=== PATIENT | male | born 1985 | race Caucasian/White ===

== ENCOUNTER 2017-04-26 19:45 | Inpatient (IN) | payer OTHER ==
--- NOTE | 2017-04-26 21:14 | HP ---
CIWA Score - CIWA Score Nausea/Vomitin-Mild Nausea/No Vomiting Muscle Tremors: 4-Moderate,w/Arms Extend Anxiety: 4-Mod. Anxious/Guarded Agitation: 4-Moderately Restless Paroxysmal Sweats: 1-Minimal Palms Moist Orientation: 1-Uncertain about Date Tacttile Disturbances: 0-None Auditory Disturbances: 0-None Visual Disturbances: 0-None Headache: 1-Very Mild CIWA-Ar Total Score: 16 Admission ROS BHS - HPI Chief Complaint: WITHDRAWAL SX ALCOHOL INTOXICATION TREATED IN ER RECEIVED LIBRIUM Allergies/Adverse Reactions: Allergies Allergy/AdvReac Type Severity Reaction Status Date / Time Fish Containing Products Allergy Verified 04/26/17 21:14 History of Present Illness: 31 YEARS OLD MALE WITH LONG HISTORY OF ALCOHOL NICOTINE DEPENDENCE LEFT LEG 2016 TRAUMA MULTIPLE SURGERY REPAIRED AND ANXIETY IS ADMITTED TO DETOX Exam Limitations: No Limitations - Ebola screening Have you traveled outside of the country in the last 21 days: No Have you had contact with anyone from an Ebola affected area: No Have you been sick,other than usual withdrawal symptoms: No Do you have a fever: No - Review of Systems Constitutional: Loss of Appetite, Changes in sleep, Unintentional Wgt. Loss, Unexplained wgt Loss EENT: reports: No Symptoms Reported Respiratory: reports: No Symptoms reported Cardiac: reports: No Symptoms Reported GI: reports: Nausea, Poor Appetite, Poor Fluid Intake, Indigestion, Abdominal cramping : reports: No Symptoms Reported Musculoskeletal: reports: Joint Pain (LEFT LEG), Muscle Pain Integumentary: reports: No Symptoms Reported Neuro: reports: Seizure (2014 LAST EPISODE), Tremors Endocrine: reports: No Symptoms Reported Hematology: reports: No Symptoms Reported Psychiatric: reports: Judgement Intact, Anxious Other Systems: Reviewed and Negative Patient History - Patient Medical History Hx Anemia: No Hx Asthma: No Hx Chronic Obstructive Pulmonary Disease (COPD): No Hx Cancer: No Hx Cardiac Disorders: No Hx Congestive Heart Failure: No Hx Hypertension: No Hx Hypercholesterolemia: No Hx Pacemaker: No HX Cerebrovascular Accident: No Hx Seizures: No Hx Dementia: No Hx Diabetes: No Hx Gastrointestinal Disorders: Yes Hx Liver Disease: No Hx Genitourinary Disorders: No Hx Sexually Transmitted Disorders: No Hx Renal Disease (ESRD): No Hx Thyroid Disease: No Hx Human Immunodeficiency Virus (HIV): No Hx Hepatitis C: No Hx Depression: Yes Hx Suicide Attempt: No Hx Bipolar Disorder: No Hx Schizophrenia: No - Patient Surgical History Past Surgical History: Yes Hx Neurologic Surgery: No Hx Cataract Extraction: No Hx Cardiac Surgery: No Hx Lung Surgery: No Hx Breast Surgery: No Hx Breast Biopsy: No Hx Abdominal Surgery: No Hx Appendectomy: No Hx Cholecystectomy: No Hx Genitourinary Surgery: No Hx Orthopedic Surgery: Yes (LEFT ANKLE 2016) Anesthesia Reaction: No - PPD History Previous Implant?: Yes Documented Results: Negative w/o proof Implanted On Prior R Admission?: No PPD to be Administered?: Yes - Smoking Cessation Smoking history: Current every day smoker Have you smoked in the past 12 months: Yes Aproximately how many cigarettes per day: 20 Cigars Per Day: 0 Hx Chewing Tobacco Use: No Initiated information on smoking cessation: Yes 'Breaking Loose' booklet given: 04/26/17 - Substance & Tx. History Hx Alcohol Use: Yes Hx Substance Use: No Substance Use Type: Alcohol Hx Substance Use Treatment: Yes (01/2017 [facility]) - Substances Abused Alcohol Route: Oral Frequency: Daily Amount used: 3 PINTS VOLKA Age of first use: 21 Date of Last Use: 04/26/17 Family Disease History - Family Disease History Family History: Unremarkable Admission Physical Exam S - Physical General Appearance: Yes: Appropriately Dressed, Moderate Distress, Alcohol on Breath, Thin, Tremorous, Irritable, Sweating, Anxious HEENTM: Yes: Hearing grossly Normal, Normal ENT Inspection, Normocephalic, Normal Voice Respiratory: Yes: Chest Non-Tender, Lungs Clear, Normal Breath Sounds, No Respiratory Distress, No Accessory Muscle Use Neck: Yes: Supple, Trachea in good position Breast: Yes: Breasts Symetrical Cardiology: Yes: Regular Rhythm, S1, S2, Tachycardia Abdominal: Yes: Normal Bowel Sounds, Non Tender, Soft Genitourinary: Yes: Within Normal Limits Back: Yes: Normal Inspection Musculoskeletal: Yes: Gait Steady, Back pain, Muscle Pain (LEFT ANKLE) Extremities: Yes: Non-Tender, Tremors Neurological: Yes: Alert, Normal Response, Depressed Affect Integumentary: Yes: Warm Lymphatic: Yes: Within Normal Limits - Diagnostic (1) Alcohol dependence with uncomplicated withdrawal Current Visit: Yes Status: Acute (2) Nicotine dependence Current Visit: Yes Status: Acute Qualifiers: Nicotine product type: cigarettes Substance use status: in withdrawal Qualified Code(s): F17.213 - Nicotine dependence, cigarettes, with withdrawal (3) Weight loss Current Visit: Yes Status: Acute (4) GERD (gastroesophageal reflux disease) Current Visit: Yes Status: Chronic Qualifiers: Esophagitis presence: without esophagitis Qualified Code(s): K21.9 - Gastro-esophageal reflux disease without esophagitis (5) Anxiety Current Visit: Yes Status: Suspected (6) Use of cane as ambulatory aid Current Visit: Yes Status: Acute (7) Left leg weakness Current Visit: Yes Status: Chronic Cleared for Admission [facility] - Detox or Rehab [facility] Level of Care: Medically Managed Detox Regimen/Protocol: Librium [facility] Breath Alcohol Content Breath Alcohol Content: 0.257 Vital Signs - Vital Signs Vital Signs Refused: No Temperature: 96.9 F Temperature Source: Oral Pulse Rate: 108 Respiratory Rate: 18 Blood Pressure: 145/90 BP Location: Left Arm Blood Pressure Position: Sitting - Height Height: 5 ft 8 in - Weight Weight: 170 lb Weight Measurement Method: Standing Scale Body Mass Index (BMI): 25.8 - Bowel Function Bowel Movement: Yes Urine Drug Screen - Control Is Test Valid: Yes - Results Drug Screen Negative: No Urine Drug Screen Results: JULIANO-Cocaine, BZO-Benzodiazepines
[2017-04-26 21:19] VITALS: BMI 25.8
[2017-04-26] MEDS ORDERED: ACETAMINOPHEN 325 MG TABLET (FP) PO PRN (21:23)
[2017-04-26] MEDS ORDERED: MAGNESIUM CITRATE 300 ML BOTTLE PO PRN (21:23)
[2017-04-26] MEDS ORDERED: hydrOXYzine PAMOATE 50 MG CAPSULE (FP) PO PRN (21:23)
[2017-04-26] MEDS ORDERED: P-EPHED 60MG/TRIPROLIDI 2.5MG TABLET PO PRN (21:23)
[2017-04-26] MEDS ORDERED: NICOTINE POLACRILEX 4 MG GUM BUC PRN (21:23)
[2017-04-26] MEDS ORDERED: MAGNESIUM HYDROX 2400MG/30ML ORAL SUSPENSION 30 ML CUP PO PRN (21:23)
[2017-04-26] MEDS ORDERED: LOPERAMIDE HCL 2 MG CAPSULE PO PRN (21:23)
[2017-04-26] MEDS ORDERED: guaiFENesin/D-METHORPHAN HB 10 ML UNIT-DOSE CUPS PO PRN (21:23)
[2017-04-26] MEDS ORDERED: MAG HYDROX/AL HYDROX/SIMETH 30 ML UNIT-DOSE CUP PO PRN (21:23)
[2017-04-26] MEDS ORDERED: MENTHOL/PHENOL 1 EACH UD MM PRN (21:23)
[2017-04-26] MEDS ORDERED: chlordiazePOXIDE HCL 25 MG CAPSULE PO ONE (21:23)
[2017-04-26] MEDS ORDERED: chlordiazePOXIDE HCL 25 MG CAPSULE PO PRN (21:23)
[2017-04-27] MEDS ORDERED: chlordiazePOXIDE HCL 25 MG CAPSULE PO ONE (00:30)
[2017-04-27] MEDS: diphenhydrAMINE HCL 50 MG CAPSULE PO PRN ×2 (00:58→22:32)
[2017-04-27] MEDS: chlordiazePOXIDE HCL 25 MG CAPSULE PO SCH ×5 (01:05→22:08)
[2017-04-27] MEDS: RANITIDINE HCL 150 MG TABLET (FP) PO SCH ×3 (01:06→22:08)
[2017-04-27] MEDS: THIAMINE HCL 100 MG TABLET (FP) PO SCH ×2 (01:06→22:08)
[2017-04-27 01:29] LABS: URINE APPEARANCE CLEAR; URINE BILIRUBIN NEGATIVE (NEGATIVE); URINE BLOOD NEGATIVE (NEGATIVE); URINE COLOR COLORLESS; URINE GLUCOSE (UA) NEGATIVE (NEGATIVE); URINE KETONE NEGATIVE (NEGATIVE); URINE LEUK ESTERASE NEGATIVE (NEGATIVE); URINE NITRITE NEGATIVE (NEGATIVE); URINE PROTEIN NEGATIVE (NEGATIVE); URINE UROBILINOGEN NEGATIVE mg/dL (0.2-1.0)
--- NOTE | 2017-04-27 08:42 | CONSULT ---
[facility] Psychiatric Consult - Data Date of interview: 04/27/17 Admission source: [facility] Identifying data: This ios 31 years old male with no psychiatric hospittalization history, ambu;ating with cane, intoxicated with: Alcohol and Nicotine Substance Abuse History: - Smoking Cessation. Smoking history: Current every day smoker. Have you smoked in the past 12 months: Yes. Aproximately how many cigarettes per day: 20. Cigars Per Day: 0. Hx Chewing Tobacco Use: No. Initiated information on smoking cessation: Yes. 'Breaking Loose' booklet given : 04/26/17. - Substance & Tx. History. Hx Alcohol Use: Yes. Hx Substance Use : No. Substance Use Type: Alcohol. Hx Substance Use Treatment: Yes (01/2017 [facility]). - Substances Abused. Alcohol. Route: Oral. Frequency: Daily. Amount used: 3 PINTS VOLKA. Age of first use: 21. Date of Last Use: 04/26/17 Medical History: Left Leg weackness, Left ankle s/p injuty., Weight loss history Psychiatric History: Patient reports history of anxiety, reports no medications taking prior to admission Physical/Sexual Abuse/Trauma History: Denies Additional Comment: Vistaril 50mg po prn q4 for agitation and anxiety Mental Status Exam - Mental Status Exam Alert and Oriented to: Person Cognitive Function: Fair Patient Appearance: Well Groomed Mood: Anxious Affect: Mood Congruent Patient Behavior: Cooperative Speech Pattern: Appropriate Voice Loudness: Normal Thought Process: Goal Oriented Thought Disorder: Being Controlled Hallucinations: Denies Suicidal Ideation: Denies Homicidal Ideation: Denies Insight/Judgement: Fair Sleep: Difficulty falling asleep Appetite: Weight loss Muscle strength/Tone: Mild Hypertonicity Gait/Station: Ataxic Additional Comments: Vistaril 50mg po prn q4 for agitation and anxiety Psychiatric Findings - Problem List (Hiko 1, 2,3) (1) Alcohol dependence with uncomplicated withdrawal Current Visit: Yes Status: Acute (2) Nicotine dependence Current Visit: Yes Status: Acute Qualifiers: Nicotine product type: cigarettes Substance use status: in withdrawal Qualified Code(s): F17.213 - Nicotine dependence, cigarettes, with withdrawal (3) Drug-induced mood disorder Current Visit: Yes Status: Acute - Initial Treatment Plan Initial Treatment Plan: Vistaril 50mg po prn q4 for agitation and anxiety
[2017-04-27 09:50] LABS: MCH 32.3 pg (25.7-33.7); MCHC 34.1 g/dl (32.0-35.9); MEAN CELL VOLUME 94.7 fl (80-96); MEAN PLT VOLUME 8.1 fl (7.5-11.1); PLATELET COUNT 233 K/MM3 (134-434); RDW 12.9 % (11.9-15.9); WHITE BLOOD COUNT 7.2 K/mm3 (4.0-10.0)
[2017-04-27] MEDS: PRENATAL VITAMINS W/ FOLIC ACID TABLET (FP) PO SCH (10:05)
[2017-04-27] MEDS: NICOTINE 21 MG/24 HOURS TOPICAL PATCH TD SCH (10:06)
[2017-04-27 10:17] LABS: ALBUMIN 3.5 g/dl (3.4-5.0); ALK PHOS 76 U/L (45-117); ANION GAP 7 (8-16); BILIRUBIN,TOTAL 0.4 mg/dL (0.2-1.0); CALCIUM 8.2 mg/dL (8.5-10.1); CO2 30 mmol/L (21-32); CREATININE 0.8 mg/dL (0.7-1.3); GLUCOSE,RANDOM 81 mg/dL (74-106); SGOT/AST 30 U/L (15-37); SGPT/ALT 40 U/L (12-78); TOT PROT 6.4 g/dl (6.4-8.2)
--- NOTE | 2017-04-27 10:17 | PN ---
[facility] CIWA - CIWA Score Nausea/Vomitin-No Nausea/No Vomiting Muscle Tremors: 4-Moderate,w/Arms Extend Anxiety: 4-Mod. Anxious/Guarded Agitation: 4-Moderately Restless Paroxysmal Sweats: 1-Minimal Palms Moist Orientation: 0-Oriented Tacttile Disturbances: 3-Moderate Itch/Numb/Burn Auditory Disturbances: 0-None Visual Disturbances: 0-None Headache: 0-None Present CIWA-Ar Total Score: 16 BHS Progress Note (SOAP) Subjective: ANIETY, SWEATS, SLIGHT TREMORS. Objective: 04/27/17 10:16 Vital Signs Temperature 97.7 F 04/27/17 09:51 Pulse Rate 73 04/27/17 09:51 Respiratory Rate 20 04/27/17 09:51 Blood Pressure 128/84 04/27/17 09:51 O2 Sat by Pulse Oximetry (%) Laboratory Last Values WBC 7.2 K/mm3 (4.0-10.0) 04/27/17 07:50 RBC 4.31 M/mm3 (4.00-5.60) 04/27/17 07:50 Hgb 13.9 GM/dL (11.7-16.9) 04/27/17 07:50 Hct 40.8 % (35.4-49) 04/27/17 07:50 MCV 94.7 fl (80-96) 04/27/17 07:50 MCH 32.3 pg (25.7-33.7) 04/27/17 07:50 MCHC 34.1 g/dl (32.0-35.9) 04/27/17 07:50 RDW 12.9 % (11.9-15.9) 04/27/17 07:50 Plt Count 233 K/MM3 (134-434) 04/27/17 07:50 MPV 8.1 fl (7.5-11.1) 04/27/17 07:50 Urine Color Colorless 04/26/17 23:37 Urine Appearance Clear 04/26/17 23:37 Urine pH 6.0 (5.0-8.0) 04/26/17 23:37 Ur Specific [place] <= 1.005 (1.005-1.025) 04/26/17 23:37 Urine Protein Negative (NEGATIVE) 04/26/17 23:37 Urine Glucose (UA) Negative (NEGATIVE) 04/26/17 23:37 Urine Ketones Negative (NEGATIVE) 04/26/17 23:37 Urine Blood Negative (NEGATIVE) 04/26/17 23:37 Urine Nitrite Negative (NEGATIVE) 04/26/17 23:37 Urine Bilirubin Negative (NEGATIVE) 04/26/17 23:37 Urine Urobilinogen Negative mg/dL (0.2-1.0) 04/26/17 23:37 OTHER LABS PENDING Assessment: 04/27/17 10:16 WITHDRAWAL SX Plan: CONTINUE DETOX
--- NOTE | 2017-04-27 13:23 | EKG ---
Test Reason : Blood Pressure : / mmHG Vent. Rate : 082 BPM Atrial Rate : 082 BPM P-R Int : 160 ms QRS Dur : 086 ms QT Int : 356 ms P-R-T Axes : 081 071 053 degrees QTc Int : 415 ms NORMAL SINUS RHYTHM NORMAL ECG NO PREVIOUS ECGS AVAILABLE Confirmed by SHIN MCMAHAN, DELORIS (2013) on 04/27/2017 1:23:33 PM Referred By: Jesus Alberto Coello Confirmed By:DELORIS MELISSA MD
[2017-04-27] MEDS ORDERED: ONDANSETRON *ODT* 4 MG TABLET SL ONE (17:35)
[2017-04-28] MEDS: diphenhydrAMINE HCL 50 MG CAPSULE PO PRN ×2 (00:23→22:02)
[2017-04-28] MEDS: chlordiazePOXIDE HCL 25 MG CAPSULE PO SCH ×3 (05:29→17:15)
[2017-04-28] MEDS: PRENATAL VITAMINS W/ FOLIC ACID TABLET (FP) PO SCH (10:19)
[2017-04-28] MEDS: RANITIDINE HCL 150 MG TABLET (FP) PO SCH ×2 (10:19→22:02)
[2017-04-28] MEDS: NICOTINE 21 MG/24 HOURS TOPICAL PATCH TD SCH (10:20)
--- NOTE | 2017-04-28 10:52 | PN ---
[facility] CIWA - CIWA Score Nausea/Vomitin-No Nausea/No Vomiting Muscle Tremors: 4-Moderate,w/Arms Extend Anxiety: 4-Mod. Anxious/Guarded Agitation: 3 Paroxysmal Sweats: 3 Orientation: 0-Oriented Tacttile Disturbances: 0-None Auditory Disturbances: 0-None Visual Disturbances: 0-None Headache: 0-None Present CIWA-Ar Total Score: 14 S Progress Note (SOAP) Subjective: Anxiety,tremors,sweating,interrupted sleep,restless Objective: 04/28/17 10:51 Vital Signs - 8 hr 04/28/17 04/28/17 04/28/17 03:30 06:17 09:44 Temperature 97 F L 97.1 F L Pulse Rate 57 L 62 Respiratory 18 20 20 Rate Blood Pressure 139/93 136/89 Laboratory Last Values WBC 7.2 K/mm3 (4.0-10.0) 04/27/17 07:50 RBC 4.31 M/mm3 (4.00-5.60) 04/27/17 07:50 Hgb 13.9 GM/dL (11.7-16.9) 04/27/17 07:50 Hct 40.8 % (35.4-49) 04/27/17 07:50 MCV 94.7 fl (80-96) 04/27/17 07:50 MCH 32.3 pg (25.7-33.7) 04/27/17 07:50 MCHC 34.1 g/dl (32.0-35.9) 04/27/17 07:50 RDW 12.9 % (11.9-15.9) 04/27/17 07:50 Plt Count 233 K/MM3 (134-434) 04/27/17 07:50 MPV 8.1 fl (7.5-11.1) 04/27/17 07:50 Sodium 145 mmol/L (136-145) 04/27/17 07:50 Potassium 3.5 mmol/L (3.5-5.1) 04/27/17 07:50 Chloride 108 mmol/L (98-107) H 04/27/17 07:50 Carbon Dioxide 30 mmol/L (21-32) 04/27/17 07:50 Anion Gap 7 (8-16) L 04/27/17 07:50 BUN 6 mg/dL (7-18) L 04/27/17 07:50 Creatinine 0.8 mg/dL (0.7-1.3) 04/27/17 07:50 Creat Clearance w eGFR > 60 (>60) 04/27/17 07:50 Random Glucose 81 mg/dL (74-106) 04/27/17 07:50 Calcium 8.2 mg/dL (8.5-10.1) L 04/27/17 07:50 Total Bilirubin 0.4 mg/dL (0.2-1.0) 04/27/17 07:50 AST 30 U/L (15-37) 04/27/17 07:50 ALT 40 U/L (12-78) 04/27/17 07:50 Alkaline Phosphatase 76 U/L (45-117) 04/27/17 07:50 Total Protein 6.4 g/dl (6.4-8.2) 04/27/17 07:50 Albumin 3.5 g/dl (3.4-5.0) 04/27/17 07:50 Urine Color Colorless 04/26/17 23:37 Urine Appearance Clear 04/26/17 23:37 Urine pH 6.0 (5.0-8.0) 04/26/17 23:37 Ur Specific [place] <= 1.005 (1.005-1.025) 04/26/17 23:37 Urine Protein Negative (NEGATIVE) 04/26/17 23:37 Urine Glucose (UA) Negative (NEGATIVE) 04/26/17 23:37 Urine Ketones Negative (NEGATIVE) 04/26/17 23:37 Urine Blood Negative (NEGATIVE) 04/26/17 23:37 Urine Nitrite Negative (NEGATIVE) 04/26/17 23:37 Urine Bilirubin Negative (NEGATIVE) 04/26/17 23:37 Urine Urobilinogen Negative mg/dL (0.2-1.0) 04/26/17 23:37 RPR Titer Nonreactive (NONREACTIVE) 04/27/17 07:50 labs noted Assessment: 04/28/17 10:52 Withdrawal sx. Plan: Continue detox
[2017-04-28] MEDS: THIAMINE HCL 100 MG TABLET (FP) PO SCH (22:02)
[2017-04-28] MEDS: chlordiazePOXIDE 5 MG CAPSULE PO SCH (22:02)
[2017-04-29] MEDS: diphenhydrAMINE HCL 50 MG CAPSULE PO PRN ×2 (01:06→22:03)
[2017-04-29] MEDS: chlordiazePOXIDE 5 MG CAPSULE PO SCH ×3 (05:52→17:26)
[2017-04-29] MEDS: PRENATAL VITAMINS W/ FOLIC ACID TABLET (FP) PO SCH (10:07)
[2017-04-29] MEDS: RANITIDINE HCL 150 MG TABLET (FP) PO SCH ×2 (10:07→22:03)
[2017-04-29] MEDS: NICOTINE 21 MG/24 HOURS TOPICAL PATCH TD SCH (10:07)
--- NOTE | 2017-04-29 13:38 | PN ---
BHS Progress Note (SOAP) Subjective: Interrupted sleep, Anxious, Sweating. Objective: PT. A & O X 3, OBSERVED AMBULATING ON UNIT WITH ASSISTANCE OF A CANE. NO ACUTE DISTRESS. PT. DENIES CHEST PAIN. 04/29/17 13:36 Vital Signs Temperature 96.5 F L 04/29/17 10:20 Pulse Rate 61 04/29/17 10:20 Respiratory Rate 18 04/29/17 10:20 Blood Pressure 140/90 04/29/17 10:20 O2 Sat by Pulse Oximetry (%) Laboratory Tests 04/26/17 04/27/17 04/27/17 23:37 07:50 07:50 WBC 7.2 RBC 4.31 Hgb 13.9 Hct 40.8 MCV 94.7 MCH 32.3 MCHC 34.1 RDW 12.9 Plt Count 233 MPV 8.1 Sodium 145 Potassium 3.5 Chloride 108 H Carbon Dioxide 30 Anion Gap 7 L BUN 6 L Creatinine 0.8 Creat Clearance w eGFR > 60 Random Glucose 81 Calcium 8.2 L Total Bilirubin 0.4 AST 30 ALT 40 Alkaline Phosphatase 76 Total Protein 6.4 Albumin 3.5 Urine Color Colorless Urine Appearance Clear Urine pH 6.0 Ur Specific [place] <= 1.005 Urine Protein Negative Urine Glucose (UA) Negative Urine Ketones Negative Urine Blood Negative Urine Nitrite Negative Urine Bilirubin Negative Urine Urobilinogen Negative RPR Titer 04/27/17 07:50 WBC RBC Hgb Hct MCV MCH MCHC RDW Plt Count MPV Sodium Potassium Chloride Carbon Dioxide Anion Gap BUN Creatinine Creat Clearance w eGFR Random Glucose Calcium Total Bilirubin AST ALT Alkaline Phosphatase Total Protein Albumin Urine Color Urine Appearance Urine pH Ur Specific [place] Urine Protein Urine Glucose (UA) Urine Ketones Urine Blood Urine Nitrite Urine Bilirubin Urine Urobilinogen RPR Titer Nonreactive LABS NOTED. Assessment: 04/29/17 13:37 WITHDRAWAL SYMPTOMS. Plan: CONTINUE DETOX. INCREASE DAILY PO FLUID INTAKE.
[2017-04-29 21:59] VITALS: BP 139/89; PULSE 72; TEMP 97.3
[2017-04-29] MEDS: THIAMINE HCL 100 MG TABLET (FP) PO SCH (22:03)
[2017-04-29] MEDS: chlordiazePOXIDE HCL 10 MG CAPSULE PO SCH (22:03)
[2017-04-30] MEDS: chlordiazePOXIDE HCL 10 MG CAPSULE PO SCH (05:44)
--- NOTE | 2017-04-30 13:16 | DS ---
[facility] Detox Discharge Summary Admission Date: 04/26/17 Discharge Date: 04/30/17 - History Present History: Alcohol Dependence Pertinent Past History: GERD - Physical Exam Results Vital Signs: Vital Signs Temperature 97.3 F L 04/29/17 21:58 Pulse Rate 72 04/29/17 21:58 Respiratory Rate 18 04/30/17 03:30 Blood Pressure 139/89 04/29/17 21:58 O2 Sat by Pulse Oximetry (%) Pertinent Admission Physical Exam Findings: Withdrawal symptoms Laboratory Tests 04/26/17 04/27/17 04/27/17 23:37 07:50 07:50 WBC 7.2 RBC 4.31 Hgb 13.9 Hct 40.8 MCV 94.7 MCH 32.3 MCHC 34.1 RDW 12.9 Plt Count 233 MPV 8.1 Sodium 145 Potassium 3.5 Chloride 108 H Carbon Dioxide 30 Anion Gap 7 L BUN 6 L Creatinine 0.8 Creat Clearance w eGFR > 60 Random Glucose 81 Calcium 8.2 L Total Bilirubin 0.4 AST 30 ALT 40 Alkaline Phosphatase 76 Total Protein 6.4 Albumin 3.5 Urine Color Colorless Urine Appearance Clear Urine pH 6.0 Ur Specific [place] <= 1.005 Urine Protein Negative Urine Glucose (UA) Negative Urine Ketones Negative Urine Blood Negative Urine Nitrite Negative Urine Bilirubin Negative Urine Urobilinogen Negative RPR Titer 04/27/17 07:50 WBC RBC Hgb Hct MCV MCH MCHC RDW Plt Count MPV Sodium Potassium Chloride Carbon Dioxide Anion Gap BUN Creatinine Creat Clearance w eGFR Random Glucose Calcium Total Bilirubin AST ALT Alkaline Phosphatase Total Protein Albumin Urine Color Urine Appearance Urine pH Ur Specific [place] Urine Protein Urine Glucose (UA) Urine Ketones Urine Blood Urine Nitrite Urine Bilirubin Urine Urobilinogen RPR Titer Nonreactive Labs noted - Treatment Hospital Course: Detox Protocol Followed, Detoxed Safely, Responded well, Discharged Condition Good - Medication Discharge Medications: Ambulatory Orders NK [No Known Home Medication] 04/27/17 - Diagnosis (1) Alcohol dependence with uncomplicated withdrawal Status: Acute (2) Nicotine dependence Status: Chronic Qualifiers: Nicotine product type: cigarettes Substance use status: in withdrawal Qualified Code(s): F17.213 - Nicotine dependence, cigarettes, with withdrawal (3) GERD (gastroesophageal reflux disease) Status: Chronic Qualifiers: Esophagitis presence: without esophagitis Qualified Code(s): K21.9 - Gastro-esophageal reflux disease without esophagitis (4) Depression Status: Chronic - AMA Did Patient Leave Against Medical Advice: No
== END 2017-04-30 06:40 | disposition home or self-care (01) | DRG 775 ==
LOC: YASAS 19:45 → Y3N 22:44
PROVIDERS: ADMIT Internal Medicine; ATTEND Internal Medicine
PROC: HZ2ZZZZ Detoxification Services for Substance Abuse Treatment (ICD-10-PCS; principal; 2017-04-26)
DX: F10.230 Alcohol dependence with withdrawal, uncomplicated (principal); F32.9 Major depressive disorder, single episode, unspecified; F19.24 Other psychoactive substance dependence with psychoactive substance-induced mood disorder; F41.9 Anxiety disorder, unspecified; M62.81 Muscle weakness (generalized); R63.4 Abnormal weight loss; Z99.89 Dependence on other enabling machines and devices
CPT/HCPCS: 36415; 80053; 81003; 85027; 86593; 93005; 93010

== ENCOUNTER 2017-09-12 10:31 | Inpatient (IN) | payer OTHER ==
[2017-09-12 10:51] VITALS: BMI 26.6
--- NOTE | 2017-09-12 13:43 | HP ---
CIWA Score - CIWA Score Nausea/Vomitin (DIARRHEA) Muscle Tremors: 3 Anxiety: 4-Mod. Anxious/Guarded Agitation: 3 Paroxysmal Sweats: 1-Minimal Palms Moist Orientation: 0-Oriented Tacttile Disturbances: 3-Moderate Itch/Numb/Burn Auditory Disturbances: 0-None Visual Disturbances: 0-None Headache: 0-None Present CIWA-Ar Total Score: 19 Admission ROS BHS - HPI Chief Complaint: WITHDRAWAL SX FROM ALCOHOL Allergies/Adverse Reactions: Allergies Allergy/AdvReac Type Severity Reaction Status Date / Time Fish Containing Products Allergy Verified 09/12/17 11:30 History of Present Illness: 32 Y/O H/M WITH A HX OF ALCOHOL ANC COCAINE DEPENDENCE SEEKING DETOX [place] Exam Limitations: No Limitations - Ebola screening Have you traveled outside of the country in the last 21 days: No (N) Have you had contact with anyone from an Ebola affected area: No Have you been sick,other than usual withdrawal symptoms: No Do you have a fever: No - Review of Systems Constitutional: Loss of Appetite, Night Sweats, Changes in sleep, Unintentional Wgt. Loss EENT: reports: Blurred Vision (WEARS GLASSES), Tearing, Dental Problems (TOOTH EXTRACTION IN THE PAST) Respiratory: reports: No Symptoms reported Cardiac: reports: Lightheadedness, Chest Tightness (WHEN SMOKING CIGARETTES) GI: reports: Diarrhea, Nausea, Poor Appetite, Vomiting : reports: No Symptoms Reported Musculoskeletal: reports: Back Pain, Joint Pain, Muscle Pain Integumentary: reports: No Symptoms Reported Neuro: reports: Headache, Seizure, Unsteady Gait, Dizziness Endocrine: reports: No Symptoms Reported Hematology: reports: No Symptoms Reported Psychiatric: reports: Orientated x3, Anxious Other Systems: Reviewed and Negative Patient History - Patient Medical History Hx Anemia: No Hx Asthma: No Hx Chronic Obstructive Pulmonary Disease (COPD): No Hx Cancer: No Hx Cardiac Disorders: No Hx Congestive Heart Failure: No Hx Hypertension: No (ELEVATED BP ON ADMISSION 160/112--NEVER IN [place]) Hx Hypercholesterolemia: No Hx Pacemaker: No HX Cerebrovascular Accident: No Hx Seizures: Yes (2016) Hx Dementia: No Hx Diabetes: No Hx Gastrointestinal Disorders: No Hx Liver Disease: No Hx Genitourinary Disorders: No Hx Sexually Transmitted Disorders: No Hx Renal Disease (ESRD): No Hx Thyroid Disease: No Hx Human Immunodeficiency Virus (HIV): No (NEGATIVE HX) Hx Hepatitis C: No Hx Depression: Yes (NO CURRENT MEDS) Hx Suicide Attempt: No (DENIES) Hx Bipolar Disorder: No Hx Schizophrenia: No - Patient Surgical History Past Surgical History: Yes Hx Neurologic Surgery: No Hx Cataract Extraction: No Hx Cardiac Surgery: No Hx Lung Surgery: No Hx Breast Surgery: No Hx Breast Biopsy: No Hx Abdominal Surgery: No Hx Appendectomy: No Hx Cholecystectomy: No Hx Genitourinary Surgery: No Hx Orthopedic Surgery: Yes (LEFT ANKLE 2016) Anesthesia Reaction: No - PPD History Previous Implant?: Yes Documented Results: Negative w/proof Implanted On Prior [facility] Admission?: Yes Date: 04/30/17 PPD to be Administered?: No - Reproductive History Patient is a Female of Child Bearing Age (11 -55 yrs old): No (MALE) - Smoking Cessation Smoking history: Current every day smoker Have you smoked in the past 12 months: Yes Aproximately how many cigarettes per day: 12 Cigars Per Day: 0 Hx Chewing Tobacco Use: No Initiated information on smoking cessation: Yes 'Breaking Loose' booklet given: 09/12/17 - Substance & Tx. History Hx Alcohol Use: Yes (VODKA) Hx Substance Use: Yes (COCAINE) Substance Use Type: Alcohol, Cocaine Hx Substance Use Treatment: Yes (LAST [place] AT [facility]) - Substances Abused Alcohol Route: Oral Amount used: Vodka(2-3 pints) Age of first use: 24 Date of Last Use: 09/11/17 Cocaine Route: Inhalation Frequency: 1-2 times per week Amount used: 2-3 gms Age of first use: 26 Date of Last Use: 09/10/17 Family Disease History - Family Disease History Family Disease History: Diabetes: Father (HTN), Other: Father Admission Physical Exam S - Vital Signs Vital Signs: Vital Signs - 24 hr 09/12/17 10:50 Temperature 98.2 F Pulse Rate 86 Respiratory 18 Rate Blood Pressure 160/112 - Physical General Appearance: Yes: Moderate Distress, Irritable, Anxious HEENTM: Yes: EOMI, Normocephalic, SHADIA, Pharynx Normal Respiratory: Yes: Chest Non-Tender, Lungs Clear, Normal Breath Sounds, No Respiratory Distress Neck: Yes: No masses,lesions,Nodules, Supple, Trachea in good position Breast: Yes: Breast Exam Deferred Cardiology: Yes: Regular Rhythm, Regular Rate, S1, S2 Abdominal: Yes: Normal Bowel Sounds, Non Tender, Flat, Soft Genitourinary: Yes: Other (N/C) Back: Yes: Within Normal Limits Musculoskeletal: Yes: full range of Motion, Gait Steady Extremities: Yes: Normal Range of Motion, Non-Tender 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213 - Nicotine dependence, cigarettes, with withdrawal (4) History of fracture of left ankle Current Visit: Yes Status: Chronic (5) Hx of seizure disorder Current Visit: Yes Status: Suspected (6) Cocaine dependence Current Visit: Yes Status: Acute Qualifiers: Substance use status: uncomplicated Qualified Code(s): F14.20 - Cocaine dependence, uncomplicated Cleared for Admission S - Detox or Rehab [facility] Level of Care: Medically Managed Detox Regimen/Protocol: Librium [facility] Breath Alcohol Content Breath Alcohol Content: 0 Urine Drug Screen - Results Drug Screen Negative: No Urine Drug Screen Results: JULIANO-Cocaine, TCA-Tricyclic Antidepress
[2017-09-12] MEDS ORDERED: ACETAMINOPHEN 325 MG TABLET (FP) PO PRN (13:55)
[2017-09-12] MEDS ORDERED: MAGNESIUM CITRATE 300 ML BOTTLE PO PRN (13:55)
[2017-09-12] MEDS ORDERED: NICOTINE POLACRILEX 2 MG GUM BUC PRN (13:55)
[2017-09-12] MEDS ORDERED: guaiFENesin/D-METHORPHAN HB 10 ML UNIT-DOSE CUPS PO PRN (13:55)
[2017-09-12] MEDS ORDERED: MAGNESIUM HYDROX 2400MG/30ML ORAL SUSPENSION 30 ML CUP PO PRN (13:55)
[2017-09-12] MEDS ORDERED: P-EPHED 60MG/TRIPROLIDI 2.5MG TABLET PO PRN (13:55)
[2017-09-12] MEDS ORDERED: MAG HYDROX/AL HYDROX/SIMETH 30 ML UNIT-DOSE CUP PO PRN (13:55)
[2017-09-12] MEDS ORDERED: MENTHOL/PHENOL 1 EACH UD MM PRN (13:55)
[2017-09-12] MEDS ORDERED: chlordiazePOXIDE HCL 25 MG CAPSULE PO PRN (13:55)
[2017-09-12] MEDS ORDERED: IBUPROFEN 400 MG TABLET (FP) PO PRN (13:55)
[2017-09-12] MEDS ORDERED: LOPERAMIDE HCL 2 MG CAPSULE PO PRN (13:55)
[2017-09-12] MEDS ORDERED: cloNIDine HCL 0.1 MG TABLET PO ONE (14:45)
[2017-09-12] MEDS ORDERED: chlordiazePOXIDE HCL 25 MG CAPSULE PO ONE (14:45)
[2017-09-12] MEDS: CYCLOBENZAPRINE HCL 10 MG TABLET (FP) PO SCH ×2 (15:26→22:20)
--- NOTE | 2017-09-12 16:21 | CONSULT ---
[facility] Psychiatric Consult - Data Date of interview: 09/02/17 Admission source: [facility] Identifying data: Pt. is a 32 year old single male, father of three. Source of income is through workers compensation. This is patient's second admission to [facility]. Pt. admitted to detox for alcohol and cocaine dependence. Substance Abuse History: Following information confirmed with Mr. Ramirez: Smoking Cessation. Smoking history: Current every day smoker. Have you smoked in the past 12 months: Yes. Aproximately how many cigarettes per day: 12. Cigars Per Day: 0. Hx Chewing Tobacco Use: No. Initiated information on smoking cessation: Yes. 'Breaking Loose' booklet given: 09/12/17. - Substance & Tx. History. Hx Alcohol Use: Yes (VODKA). Hx Substance Use: Yes (COCAINE). Substance Use Type: Alcohol, Cocaine. Hx Substance Use Treatment: Yes (LAST TX AT [facility]). - Substances Abused. Alcohol. Route: Oral. Amount used: Vodka( 2-3 pints). Age of first use: 24. Date of Last Use: 09/11/17. Cocaine. Route: Inhalation. Frequency: 1-2 times per week. Amount used: 2-3 gms. Age of first use: 26. Date of Last Use: 09/10/17 Medical History: Hypertension, Seizures (2016) Psychiatric History: Pt. reports one psychiatric hospitalizations in 2008 at [facility] after endorsing suicidal ideation. Stated he refused medications during his hospitalizations at [facility]. Pt. denies h/ o suicide attempts,and OPC. Pt. self reports history of anxiety. Physical/Sexual Abuse/Trauma History: Denies. Mental Status Exam - Mental Status Exam Alert and Oriented to: Time, Place, Person Cognitive Function: Good Patient Appearance: Well Groomed Mood: Euthymic Affect: Mood Congruent Patient Behavior: Appropriate, Cooperative Speech Pattern: Appropriate Voice Loudness: Normal Thought Process: Goal Oriented Thought Disorder: Not Present Hallucinations: Denies Suicidal Ideation: Denies Homicidal Ideation: Denies Insight/Judgement: Poor Sleep: Poorly Appetite: Fair Muscle strength/Tone: Normal Gait/Station: Normal Psychiatric Findings - Problem List ([place] 1, 2,3) (1) Alcohol dependence with uncomplicated withdrawal Current Visit: Yes Status: Acute (2) Insomnia Current Visit: Yes Status: Acute (3) Cocaine dependence Current Visit: Yes Status: Acute - Initial Treatment Plan Initial Treatment Plan: Psychoeducation provided. Detoxification in progress. Benadryl 50mg qhs prn ordered for insomnia. Benefits and side effects discussed. Verbal consent given. Will continue to monitor.
[2017-09-12 16:32] LABS: HEMOGLOBIN 16.2 GM/dL (11.7-16.9); MCH 32.1 pg (25.7-33.7); MCHC 33.8 g/dl (32.0-35.9); MEAN PLT VOLUME 8.8 fl (7.5-11.1); PLATELET COUNT 290 K/MM3 (134-434); RBC 5.05 M/mm3 (4.00-5.60); RDW 13.6 % (11.9-15.9); WHITE BLOOD COUNT 8.8 K/mm3 (4.0-10.0)
[2017-09-12 16:50] LABS: URINE APPEARANCE CLEAR; URINE BILIRUBIN NEGATIVE (NEGATIVE); URINE BLOOD NEGATIVE (NEGATIVE); URINE COLOR LTYELLOW; URINE GLUCOSE (UA) NEGATIVE (NEGATIVE); URINE KETONE NEGATIVE (NEGATIVE); URINE LEUK ESTERASE NEGATIVE (NEGATIVE); URINE NITRITE NEGATIVE (NEGATIVE); URINE PROTEIN NEGATIVE (NEGATIVE); URINE UROBILINOGEN NEGATIVE mg/dL (0.2-1.0)
[2017-09-12] MEDS: chlordiazePOXIDE HCL 25 MG CAPSULE PO SCH ×2 (17:32→22:20)
[2017-09-12 18:20] LABS: ALBUMIN 3.9 g/dl (3.4-5.0); ANION GAP 5 (8-16); BILIRUBIN,TOTAL 0.5 mg/dL (0.2-1.0); BLOOD UREA NITROGEN 13 mg/dL (7-18); CALCIUM 9.1 mg/dL (8.5-10.1); CHLORIDE 102 mmol/L (98-107); CO2 32 mmol/L (21-32); CREATININE 0.9 mg/dL (0.7-1.3); GLUCOSE,RANDOM 75 mg/dL (74-106); POTASSIUM 4.4 mmol/L (3.5-5.1); SGOT/AST 18 U/L (15-37); SGPT/ALT 28 U/L (12-78); SODIUM 139 mmol/L (136-145); TOT PROT 7.7 g/dl (6.4-8.2)
[2017-09-12 18:21] LABS: ALK PHOS 93 U/L (45-117)
[2017-09-12] MEDS: THIAMINE HCL 100 MG TABLET (FP) PO SCH (22:20)
[2017-09-12] MEDS: cloNIDine HCL 0.1 MG TABLET PO SCH (22:20)
[2017-09-13] MEDS: chlordiazePOXIDE HCL 25 MG CAPSULE PO SCH ×4 (05:53→22:27)
[2017-09-13] MEDS: CYCLOBENZAPRINE HCL 10 MG TABLET (FP) PO SCH ×3 (05:53→22:27)
--- NOTE | 2017-09-13 08:03 | EKG ---
Test Reason : Blood Pressure : / mmHG Vent. Rate : 078 BPM Atrial Rate : 078 BPM P-R Int : 158 ms QRS Dur : 092 ms QT Int : 354 ms P-R-T Axes : 069 063 050 degrees QTc Int : 403 ms NORMAL SINUS RHYTHM NORMAL ECG WHEN COMPARED WITH ECG OF 27-APR-2017 01:49, NO SIGNIFICANT CHANGE WAS FOUND Confirmed by KEELEY MALONE MD ([id number]) on 09/13/2017 8:03:32 AM Referred By: Confirmed By:KEELEY MALONE MD
[2017-09-13] MEDS: cloNIDine HCL 0.1 MG TABLET PO SCH ×2 (10:26→22:27)
[2017-09-13] MEDS: PRENATAL VITAMINS W/ FOLIC ACID TABLET (FP) PO SCH (10:26)
[2017-09-13] MEDS: NICOTINE 14 MG/24 HOURS TOPICAL PATCH TD SCH (10:27)
--- NOTE | 2017-09-13 11:26 | PN ---
S CIWA - CIWA Score Nausea/Vomitin Muscle Tremors: 3 Anxiety: 3 Agitation: 3 Paroxysmal Sweats: 1-Minimal Palms Moist Orientation: 0-Oriented Tacttile Disturbances: 1-Very Mild Itch/Numbness Auditory Disturbances: 1-Very Mild Visual Disturbances: 0-None Headache: 2-Mild CIWA-Ar Total Score: 17 BHS Progress Note (SOAP) Subjective: ALERT,IRRITABLE,ANXIOUS,INTERRUPTED SLEEP,TREMOR Objective: 09/13/17 11:25 Vital Signs Temperature 96.8 F L 09/13/17 10:00 Pulse Rate 78 09/13/17 10:00 Respiratory Rate 18 09/13/17 10:00 Blood Pressure 127/69 09/13/17 10:00 O2 Sat by Pulse Oximetry (%) EKG NSR,NORMAL ECG 09/13/17 11:25 Laboratory Last Values WBC 8.8 K/mm3 (4.0-10.0) 09/12/17 14:00 RBC 5.05 M/mm3 (4.00-5.60) 09/12/17 14:00 Hgb 16.2 GM/dL (11.7-16.9) D 09/12/17 14:00 Hct 48.0 % (35.4-49) D 09/12/17 14:00 MCV 95.0 fl (80-96) 09/12/17 14:00 MCH 32.1 pg (25.7-33.7) 09/12/17 14:00 MCHC 33.8 g/dl (32.0-35.9) 09/12/17 14:00 RDW 13.6 % (11.9-15.9) 09/12/17 14:00 Plt Count 290 K/MM3 (134-434) D 09/12/17 14:00 MPV 8.8 fl (7.5-11.1) 09/12/17 14:00 Sodium 139 mmol/L (136-145) 09/12/17 14:00 Potassium 4.4 mmol/L (3.5-5.1) D 09/12/17 14:00 Chloride 102 mmol/L (98-107) 09/12/17 14:00 Carbon Dioxide 32 mmol/L (21-32) 09/12/17 14:00 Anion Gap 5 (8-16) L 09/12/17 14:00 BUN 13 mg/dL (7-18) D 09/12/17 14:00 Creatinine 0.9 mg/dL (0.7-1.3) 09/12/17 14:00 Creat Clearance w eGFR > 60 (>60) 09/12/17 14:00 Random Glucose 75 mg/dL (74-106) 09/12/17 14:00 Calcium 9.1 mg/dL (8.5-10.1) 09/12/17 14:00 Total Bilirubin 0.5 mg/dL (0.2-1.0) D 09/12/17 14:00 AST 18 U/L (15-37) D 09/12/17 14:00 ALT 28 U/L (12-78) D 09/12/17 14:00 Alkaline Phosphatase 93 U/L (45-117) D 09/12/17 14:00 Total Protein 7.7 g/dl (6.4-8.2) D 09/12/17 14:00 Albumin 3.9 g/dl (3.4-5.0) 09/12/17 14:00 Urine Color Ltyellow 09/12/17 15:30 Urine Appearance Clear 09/12/17 15:30 Urine pH 5.0 (5.0-8.0) 09/12/17 15:30 Ur Specific [place] 1.021 (1.001-1.035) 09/12/17 15:30 Urine Protein Negative (NEGATIVE) 09/12/17 15:30 Urine Glucose (UA) Negative (NEGATIVE) 09/12/17 15:30 Urine Ketones Negative (NEGATIVE) 09/12/17 15:30 Urine Blood Negative (NEGATIVE) 09/12/17 15:30 Urine Nitrite Negative (NEGATIVE) 09/12/17 15:30 Urine Bilirubin Negative (NEGATIVE) 09/12/17 15:30 Urine Urobilinogen Negative mg/dL (0.2-1.0) 09/12/17 15:30 Ur Leukocyte Esterase Negative (NEGATIVE) 09/12/17 15:30 RPR Titer Nonreactive (NONREACTIVE) 09/12/17 14:00 Assessment: 09/13/17 11:25 WITHDRAWAL SYMPTOM Plan: CONTINUE DETOX
[2017-09-13] MEDS: THIAMINE HCL 100 MG TABLET (FP) PO SCH (22:27)
[2017-09-14] MEDS: chlordiazePOXIDE HCL 25 MG CAPSULE PO SCH ×2 (06:10→10:37)
[2017-09-14] MEDS: CYCLOBENZAPRINE HCL 10 MG TABLET (FP) PO SCH ×3 (06:10→22:30)
[2017-09-14] MEDS: PRENATAL VITAMINS W/ FOLIC ACID TABLET (FP) PO SCH (10:37)
[2017-09-14] MEDS: cloNIDine HCL 0.1 MG TABLET PO SCH ×2 (10:38→22:30)
[2017-09-14] MEDS: NICOTINE 14 MG/24 HOURS TOPICAL PATCH TD SCH (10:38)
--- NOTE | 2017-09-14 11:31 | PN ---
S CIWA - CIWA Score Nausea/Vomitin Muscle Tremors: 3 Anxiety: 2 Agitation: 2 Paroxysmal Sweats: 1-Minimal Palms Moist Orientation: 0-Oriented Tacttile Disturbances: 1-Very Mild Itch/Numbness Auditory Disturbances: 1-Very Mild Visual Disturbances: 0-None Headache: 2-Mild CIWA-Ar Total Score: 15 BHS Progress Note (SOAP) Subjective: ALERT,IRRITABLE,ANXIOUS,INTERRUPTED SLEEP,PAIN IN THE BODY Objective: 09/14/17 11:29 Vital Signs Temperature 96.7 F L 09/14/17 10:00 Pulse Rate 79 09/14/17 10:00 Respiratory Rate 18 09/14/17 10:00 Blood Pressure 114/73 09/14/17 10:00 O2 Sat by Pulse Oximetry (%) 09/14/17 11:29 Laboratory Last Values WBC 8.8 K/mm3 (4.0-10.0) 09/12/17 14:00 RBC 5.05 M/mm3 (4.00-5.60) 09/12/17 14:00 Hgb 16.2 GM/dL (11.7-16.9) D 09/12/17 14:00 Hct 48.0 % (35.4-49) D 09/12/17 14:00 MCV 95.0 fl (80-96) 09/12/17 14:00 MCH 32.1 pg (25.7-33.7) 09/12/17 14:00 MCHC 33.8 g/dl (32.0-35.9) 09/12/17 14:00 RDW 13.6 % (11.9-15.9) 09/12/17 14:00 Plt Count 290 K/MM3 (134-434) D 09/12/17 14:00 MPV 8.8 fl (7.5-11.1) 09/12/17 14:00 Sodium 139 mmol/L (136-145) 09/12/17 14:00 Potassium 4.4 mmol/L (3.5-5.1) D 09/12/17 14:00 Chloride 102 mmol/L (98-107) 09/12/17 14:00 Carbon Dioxide 32 mmol/L (21-32) 09/12/17 14:00 Anion Gap 5 (8-16) L 09/12/17 14:00 BUN 13 mg/dL (7-18) D 09/12/17 14:00 Creatinine 0.9 mg/dL (0.7-1.3) 09/12/17 14:00 Creat Clearance w eGFR > 60 (>60) 09/12/17 14:00 Random Glucose 75 mg/dL (74-106) 09/12/17 14:00 Calcium 9.1 mg/dL (8.5-10.1) 09/12/17 14:00 Total Bilirubin 0.5 mg/dL (0.2-1.0) D 09/12/17 14:00 AST 18 U/L (15-37) D 09/12/17 14:00 ALT 28 U/L (12-78) D 09/12/17 14:00 Alkaline Phosphatase 93 U/L (45-117) D 09/12/17 14:00 Total Protein 7.7 g/dl (6.4-8.2) D 09/12/17 14:00 Albumin 3.9 g/dl (3.4-5.0) 09/12/17 14:00 Urine Color Ltyellow 09/12/17 15:30 Urine Appearance Clear 09/12/17 15:30 Urine pH 5.0 (5.0-8.0) 09/12/17 15:30 Ur Specific [place] 1.021 (1.001-1.035) 09/12/17 15:30 Urine Protein Negative (NEGATIVE) 09/12/17 15:30 Urine Glucose (UA) Negative (NEGATIVE) 09/12/17 15:30 Urine Ketones Negative (NEGATIVE) 09/12/17 15:30 Urine Blood Negative (NEGATIVE) 09/12/17 15:30 Urine Nitrite Negative (NEGATIVE) 09/12/17 15:30 Urine Bilirubin Negative (NEGATIVE) 09/12/17 15:30 Urine Urobilinogen Negative mg/dL (0.2-1.0) 09/12/17 15:30 Ur Leukocyte Esterase Negative (NEGATIVE) 09/12/17 15:30 RPR Titer Nonreactive (NONREACTIVE) 09/12/17 14:00 Assessment: 09/14/17 11:29 WITHDRAWAL SYMPTOM Plan: WITHDRAWAL SYMPTOM,CONTINUE DETOX
[2017-09-14] MEDS: hydrOXYzine PAMOATE 50 MG CAPSULE (FP) PO PRN (15:00)
[2017-09-14] MEDS: chlordiazePOXIDE 5 MG CAPSULE PO SCH ×2 (17:10→22:30)
[2017-09-14] MEDS: THIAMINE HCL 100 MG TABLET (FP) PO SCH (22:30)
[2017-09-15] MEDS: hydrOXYzine PAMOATE 50 MG CAPSULE (FP) PO PRN (00:55)
[2017-09-15] MEDS: chlordiazePOXIDE 5 MG CAPSULE PO SCH ×2 (05:47→10:32)
[2017-09-15] MEDS: CYCLOBENZAPRINE HCL 10 MG TABLET (FP) PO SCH ×3 (05:47→22:31)
[2017-09-15] MEDS: PRENATAL VITAMINS W/ FOLIC ACID TABLET (FP) PO SCH (10:32)
[2017-09-15] MEDS: cloNIDine HCL 0.1 MG TABLET PO SCH ×2 (10:32→22:31)
[2017-09-15] MEDS: NICOTINE 14 MG/24 HOURS TOPICAL PATCH TD SCH (10:32)
--- NOTE | 2017-09-15 12:17 | PN ---
S Progress Note (SOAP) Subjective: ALERT,IRRITABLE,INTERRUPTED SLEEP Objective: 09/15/17 12:16 Vital Signs Temperature 96.7 F L 09/15/17 09:58 Pulse Rate 88 09/15/17 09:58 Respiratory Rate 18 09/15/17 09:58 Blood Pressure 120/72 09/15/17 09:58 O2 Sat by Pulse Oximetry (%) Assessment: 09/15/17 12:17 WITHDRAWAL SYMPTOM Plan: CONTINUE DETOX,DISCHARGE IN AM
[2017-09-15] MEDS: chlordiazePOXIDE HCL 10 MG CAPSULE PO SCH ×2 (17:11→22:31)
[2017-09-15] MEDS: THIAMINE HCL 100 MG TABLET (FP) PO SCH (22:31)
[2017-09-16] MEDS: chlordiazePOXIDE HCL 10 MG CAPSULE PO SCH (06:00)
[2017-09-16] MEDS: CYCLOBENZAPRINE HCL 10 MG TABLET (FP) PO SCH (06:02)
[2017-09-16 06:22] VITALS: BP 114/59; PULSE 74; TEMP 97.3
--- NOTE | 2017-09-16 08:26 | DS ---
[facility] Detox Discharge Summary Admission Date: 09/12/17 Discharge Date: 09/16/17 - History Present History: Alcohol Dependence Additional Comments: FOLLOW UP WITH AFTER CARE PROGRAM ARRANGEMENT Pertinent Past History: NICOTINE DEPENDENCE GERD INSOMNIA - Physical Exam Results Vital Signs: Vital Signs Temperature 97.3 F L 09/16/17 06:21 Pulse Rate 74 09/16/17 06:21 Respiratory Rate 18 09/16/17 06:21 Blood Pressure 114/59 09/16/17 06:21 O2 Sat by Pulse Oximetry (%) Pertinent Admission Physical Exam Findings: WITHDRAWAL SYMPTOM AND FINDING - Treatment Hospital Course: Detox Protocol Followed, Detoxed Safely, Responded well, Discharged Condition Good Patient has Accepted a Rehab Referral to: DECLINED - Medication Discharge Medications: Ambulatory Orders Cyclobenzaprine HCl [Flexeril -] 10 mg PO TID 09/12/17 Oxycodone HCl/Acetaminophen [Percocet 5-325 mg Tablet] 2 tab PO BID 09/12/17 - Diagnosis (1) Alcohol dependence with uncomplicated withdrawal Current Visit: Yes Status: Acute (2) Insomnia Current Visit: Yes Status: Acute (3) Nicotine dependence Current Visit: Yes Status: Acute Qualifiers: Nicotine product type: cigarettes Substance use status: in withdrawal Qualified Code(s): F17.213 - Nicotine dependence, cigarettes, with withdrawal (4) GERD (gastroesophageal reflux disease) Current Visit: Yes Status: Chronic Qualifiers: Esophagitis presence: esophagitis presence not specified Qualified Code(s) : K21.9 - Gastro-esophageal reflux disease without esophagitis (5) Hx of seizure disorder Current Visit: Yes Status: Suspected - AMA Did Patient Leave Against Medical Advice: No
== END 2017-09-16 09:12 | disposition home or self-care (01) | DRG 774 ==
LOC: YASAS 10:31 → Y6N 14:42
PROVIDERS: ADMIT Internal Medicine; ATTEND Internal Medicine
PROC: HZ2ZZZZ Detoxification Services for Substance Abuse Treatment (ICD-10-PCS; principal; 2017-09-12)
DX: F10.230 Alcohol dependence with withdrawal, uncomplicated (principal); F14.20 Cocaine dependence, uncomplicated; F17.210 Nicotine dependence, cigarettes, uncomplicated; G47.00 Insomnia, unspecified; K21.9 Gastro-esophageal reflux disease without esophagitis; Z86.69 Personal history of other diseases of the nervous system and sense organs; Z87.81 Personal history of (healed) traumatic fracture
CPT/HCPCS: 36415; 80053; 81003; 85027; 86593; 93005; 93010; J0735

== ENCOUNTER 2017-10-10 16:04 | Inpatient (IN) | payer OTHER ==
[2017-10-10 17:28] VITALS: BMI 27.8
--- NOTE | 2017-10-10 18:11 | HP ---
CIWA Score - CIWA Score Nausea/Vomitin Muscle Tremors: 2 Anxiety: 3 Agitation: 1-Slight > Activity Paroxysmal Sweats: 1-Minimal Palms Moist Orientation: 0-Oriented Tacttile Disturbances: 2-Mild Itch/Numbness/Burn Auditory Disturbances: 2-Mild Harshness/Frighten Visual Disturbances: 0-None Headache: 2-Mild CIWA-Ar Total Score: 15 Admission ROS BHS - HPI Chief Complaint: WITHDRAWAL SYMPTOMS Allergies/Adverse Reactions: Allergies Allergy/AdvReac Type Severity Reaction Status Date / Time Fish Containing Products Allergy Verified 09/12/17 11:30 History of Present Illness: 32 Y.O. WITH AN A 2 YEAR HISTORY OF ALCOHOL DEPENDENCE IS HERE SEEKING DETOX. HE LAST COMPLETED DETOX HERE ON 09/16/17 BUT COULD NOT SUSTAIN HIS SOBRIETY. HE IS REQUESTING REHAB AFTER THE COMPLETION OF DETOX. Exam Limitations: No Limitations - Ebola screening Have you traveled outside of the country in the last 21 days: No (N) Have you had contact with anyone from an Ebola affected area: No Have you been sick,other than usual withdrawal symptoms: No Do you have a fever: No - Review of Systems Constitutional: Chills, Changes in sleep EENT: reports: Blurred Vision, Nose Congestion Respiratory: reports: Cough, Wheezing Cardiac: reports: Palpitations GI: reports: Diarrhea, Nausea, Vomiting : reports: No Symptoms Reported Musculoskeletal: reports: Back Pain Integumentary: reports: No Symptoms Reported Neuro: reports: Headache, Numbness, Tremors Endocrine: reports: No Symptoms Reported Hematology: reports: No Symptoms Reported Psychiatric: reports: Judgement Intact, Mood/Affect Appropiate, Orientated x3, Anxious Other Systems: Reviewed and Negative Patient History - Patient Medical History Hx Anemia: No Hx Asthma: No Hx Chronic Obstructive Pulmonary Disease (COPD): No Hx Cancer: No Hx Cardiac Disorders: No Hx Congestive Heart Failure: No Hx Hypertension: No Hx Hypercholesterolemia: No Hx Pacemaker: No HX Cerebrovascular Accident: No Hx Seizures: Yes (2016: ETOH INDUCED) Hx Dementia: No Hx Diabetes: No Hx Gastrointestinal Disorders: No Hx Liver Disease: No Hx Genitourinary Disorders: No Hx Sexually Transmitted Disorders: No Hx Renal Disease (ESRD): No Hx Thyroid Disease: No Hx Human Immunodeficiency Virus (HIV): No (NEGATIVE HX) Hx Hepatitis C: No Hx Depression: Yes (NO CURRENT MEDS) Hx Suicide Attempt: No (DENIES) Hx Bipolar Disorder: No Hx Schizophrenia: No - Patient Surgical History Past Surgical History: Yes Hx Neurologic Surgery: No Hx Cataract Extraction: No Hx Cardiac Surgery: No Hx Lung Surgery: No Hx Breast Surgery: No Hx Breast Biopsy: No Hx Abdominal Surgery: No Hx Appendectomy: No Hx Cholecystectomy: No Hx Genitourinary Surgery: No Hx Orthopedic Surgery: Yes (LEFT ANKLE 2016) Anesthesia Reaction: No - PPD History Previous Implant?: Yes Documented Results: Negative w/proof Implanted On Prior R Admission?: Yes Date: 04/30/17 PPD to be Administered?: No - Reproductive History Patient is a Female of Child Bearing Age (11 -55 yrs old): No - Smoking Cessation Smoking history: Current every day smoker Have you smoked in the past 12 months: Yes Aproximately how many cigarettes per day: 10 Cigars Per Day: 0 Hx Chewing Tobacco Use: No Initiated information on smoking cessation: Yes 'Breaking Loose' booklet given: 10/10/17 - Substance & Tx. History Hx Alcohol Use: Yes Hx Substance Use: Yes Substance Use Type: Alcohol, Cocaine Hx Substance Use Treatment: Yes (COMPLETED DETOX ON 09/16/17) - Substances Abused Alcohol Route: Oral Frequency: Daily Amount used: 1 PINT OF LIQUOR; 6-7 24OZ OF BEERS Age of first use: 26 Date of Last Use: 10/10/17 Cocaine Route: Inhalation Frequency: 3-6 times per week Amount used: $40 Age of first use: 28 Date of Last Use: 10/10/17 Family Disease History - Family Disease History Family Disease History: Diabetes: Father (HTN), Other: Father Admission Physical Exam [facility] - Vital Signs Vital Signs: Vital Signs - 24 hr 10/10/17 17:20 Temperature 97.8 F Pulse Rate 100 H Respiratory 18 Rate Blood Pressure 142/84 - Physical General Appearance: Yes: Irritable, Anxious HEENTM: Yes: Hearing grossly Normal, Normocephalic, Normal Voice Respiratory: Yes: Chest Non-Tender, Lungs Clear, Normal Breath Sounds, No Respiratory Distress, No Accessory Muscle Use Neck: Yes: No masses,lesions,Nodules Breast: Yes: Breast Exam Deferred Cardiology: Yes: Regular Rate Abdominal: Yes: Normal Bowel Sounds, Non Tender, Flat Genitourinary: Yes: Other (NO COMPLAINTS REPORTED) Back: Yes: Normal Inspection Musculoskeletal: Yes: Back pain Extremities: Yes: Normal Capillary Refill, Normal Inspection, Normal Range of Motion, Non-Tender, Tremors Neurological: Yes: forming acid dumper II-XII NML intact, Alert, Normal Mood/Affect, Normal Response Integumentary: Yes: Normal Color, Dry, Warm Lymphatic: Yes: Within Normal Limits - Diagnostic (1) Alcohol dependence with uncomplicated withdrawal Current Visit: Yes Status: Chronic (2) Cocaine dependence Current Visit: Yes Status: Chronic Qualifiers: Substance use status: uncomplicated Qualified Code(s): F14.20 - Cocaine dependence, uncomplicated (3) Nicotine dependence Current Visit: Yes Status: Chronic Qualifiers: Nicotine product type: cigarettes Substance use status: in withdrawal Qualified Code(s): F17.213 - Nicotine dependence, cigarettes, with withdrawal (4) Hx of seizure disorder Current Visit: Yes Status: Chronic (5) Back pain Current Visit: Yes Status: Chronic Cleared for Admission [facility] - Detox or Rehab [facility] Level of Care: Medically Managed Detox Regimen/Protocol: Librium [facility] Breath Alcohol Content Breath Alcohol Content: 0.210 Urine Drug Screen - Results Drug Screen Negative: No Urine Drug Screen Results: JULIANO-Cocaine, BZO-Benzodiazepines
[2017-10-10] MEDS ORDERED: IBUPROFEN 400 MG TABLET (FP) PO PRN (18:21)
[2017-10-10] MEDS ORDERED: MAGNESIUM CITRATE 300 ML BOTTLE PO PRN (18:21)
[2017-10-10] MEDS ORDERED: ACETAMINOPHEN 325 MG TABLET (FP) PO PRN (18:21)
[2017-10-10] MEDS ORDERED: MENTHOL/PHENOL 1 EACH UD MM PRN (18:21)
[2017-10-10] MEDS ORDERED: MAG HYDROX/AL HYDROX/SIMETH 30 ML UNIT-DOSE CUP PO PRN (18:21)
[2017-10-10] MEDS ORDERED: MAGNESIUM HYDROX 2400MG/30ML ORAL SUSPENSION 30 ML CUP PO PRN (18:21)
[2017-10-10] MEDS ORDERED: chlordiazePOXIDE HCL 25 MG CAPSULE PO PRN (18:21)
[2017-10-10] MEDS ORDERED: guaiFENesin/D-METHORPHAN HB 10 ML UNIT-DOSE CUPS PO PRN (18:21)
[2017-10-10] MEDS ORDERED: NICOTINE POLACRILEX 2 MG GUM BC PRN (18:21)
[2017-10-10] MEDS ORDERED: LOPERAMIDE HCL 2 MG CAPSULE PO PRN (18:21)
[2017-10-10] MEDS ORDERED: hydrOXYzine PAMOATE 50 MG CAPSULE (FP) PO PRN (18:21)
[2017-10-10] MEDS ORDERED: P-EPHED 60MG/TRIPROLIDI 2.5MG TABLET PO PRN (18:21)
[2017-10-10] MEDS ORDERED: chlordiazePOXIDE HCL 25 MG CAPSULE ONE (19:51)
[2017-10-10] MEDS ORDERED: chlordiazePOXIDE HCL 25 MG CAPSULE PO ONE (20:00)
[2017-10-10] MEDS: chlordiazePOXIDE HCL 25 MG CAPSULE PO SCH (23:03)
[2017-10-10] MEDS: CYCLOBENZAPRINE HCL 10 MG TABLET (FP) PO SCH (23:03)
[2017-10-10] MEDS: THIAMINE HCL 100 MG TABLET (FP) PO SCH (23:03)
[2017-10-11] MEDS: CYCLOBENZAPRINE HCL 10 MG TABLET (FP) PO SCH ×3 (05:03→22:07)
[2017-10-11] MEDS: chlordiazePOXIDE HCL 25 MG CAPSULE PO SCH ×4 (05:03→22:06)
[2017-10-11 05:18] LABS: URINE APPEARANCE CLEAR; URINE BILIRUBIN NEGATIVE (NEGATIVE); URINE BLOOD NEGATIVE (NEGATIVE); URINE COLOR LTYELLOW; URINE GLUCOSE (UA) NEGATIVE (NEGATIVE); URINE KETONE NEGATIVE (NEGATIVE); URINE LEUK ESTERASE NEGATIVE (NEGATIVE); URINE NITRITE NEGATIVE (NEGATIVE); URINE PROTEIN NEGATIVE (NEGATIVE); URINE UROBILINOGEN NEGATIVE mg/dL (0.2-1.0)
[2017-10-11] MEDS: PRENATAL VITAMINS W/ FOLIC ACID TABLET (FP) PO SCH (10:07)
[2017-10-11] MEDS: NICOTINE 14 MG/24 HOURS TOPICAL PATCH TD SCH (10:08)
[2017-10-11 10:21] LABS: HEMATOCRIT 44.6 % (35.4-49); HEMOGLOBIN 14.9 GM/dL (11.7-16.9); MCH 31.9 pg (25.7-33.7); MCHC 33.5 g/dl (32.0-35.9); MEAN CELL VOLUME 95.3 fl (80-96); MEAN PLT VOLUME 8.5 fl (7.5-11.1); PLATELET COUNT 281 K/MM3 (134-434); RBC 4.67 M/mm3 (4.00-5.60); RDW 13.3 % (11.9-15.9); WHITE BLOOD COUNT 8.5 K/mm3 (4.0-10.0)
[2017-10-11 10:28] LABS: ALBUMIN 3.8 g/dl (3.4-5.0); BLOOD UREA NITROGEN 12 mg/dL (7-18); CALCIUM 9.1 mg/dL (8.5-10.1); CHLORIDE 105 mmol/L (98-107); GLUCOSE,RANDOM 102 mg/dL (74-106); POTASSIUM 4.3 mmol/L (3.5-5.1); SODIUM 141 mmol/L (136-145)
--- NOTE | 2017-10-11 10:31 | EKG ---
Test Reason : Blood Pressure : / mmHG Vent. Rate : 089 BPM Atrial Rate : 089 BPM P-R Int : 170 ms QRS Dur : 090 ms QT Int : 354 ms P-R-T Axes : 072 059 051 degrees QTc Int : 430 ms NORMAL SINUS RHYTHM NORMAL ECG WHEN COMPARED WITH ECG OF 12-SEP-2017 15:13, NO SIGNIFICANT CHANGE WAS FOUND Confirmed by KEELEY MALONE MD ([id number]) on 10/11/2017 10:31:11 AM Referred By: Confirmed By:KEELEY MALONE MD
[2017-10-11 10:33] LABS: ALK PHOS 83 U/L (45-117); ANION GAP 10 (8-16); BILIRUBIN,TOTAL 0.4 mg/dL (0.2-1.0); CO2 26 mmol/L (21-32); CREATININE 0.9 mg/dL (0.7-1.3); SGOT/AST 19 U/L (15-37); SGPT/ALT 27 U/L (12-78); TOT PROT 7.2 g/dl (6.4-8.2)
--- NOTE | 2017-10-11 11:01 | CONSULT ---
[facility] Psychiatric Consult - Data Date of interview: 10/11/17 Admission source: [facility] Identifying data: Readmission to [facility] for this 32 y/o male seeking detox treatment on for alcohol and cocaine dependence.Patient is single,a father of three,domiciled,currently unemployed and supported on Workers Compensation benefits. Substance Abuse History: In this interview, Mr Ramirez confirmed daily use of alcohol and frequent exposure to cocaine (3-5 times a week). Smoking history: Current every day smoker. Have you smoked in the past 12 months: Yes. Aproximately how many cigarettes per day: 10. Cigars Per Day: 0. Hx Chewing Tobacco Use: No. Initiated information on smoking cessation: Yes. 'Breaking Loose' booklet given: 10/10/17. - Substance & Tx. History. Hx Alcohol Use: Yes. Hx Substance Use: Yes. Substance Use Type: Alcohol, Cocaine. Hx Substance Use Treatment: Yes (COMPLETED DETOX ON 09/16/17). - Substances Abused. Alcohol. Route: Oral. Frequency: Daily. Amount used: 1 PINT OF LIQUOR; 6 -7 24OZ OF BEERS. Age of first use: 26. Date of Last Use: 10/10/17. Cocaine. Route: Inhalation. Frequency: 3-6 times per week. Amount used: $40. Age of first use: 28. Date of Last Use: 10/10/17 Medical History: Hypertension,lower back pain from " slipped discs ",antecedent of withdrawal-related seizures and a recent history of orthosurgery (job- related fracture of left ankle). Psychiatric History: History of one psychiatric hospitalization (2008) at [facility] ([facility]).Circumstances of admission : depressed mood and suicidal ideation. Reportedly diagnosed with MDD.Discharged without medications (patient refused treatment with psychotropic medications at the time).Mr Ramirez abstained from OPD care.Never followed up with psychiatric aftercare since his release from [facility].In this session,the patient informs that he is scheduled for an [facility] [place] (sometime in October 2017).Patient denies history of suicide attempts. Physical/Sexual Abuse/Trauma History: Patient denies. Additional Comment: Urine Drug Screen Results: JULIANO-Cocaine, BZO- Benzodiazepines.Noted. Mental Status Exam - Mental Status Exam Alert and Oriented to: Time, Place, Person Cognitive Function: Good Patient Appearance: Well Groomed (short stature) Mood: Hopeful, Euthymic Affect: Appropriate, Normal Range Patient Behavior: Appropriate, Cooperative Speech Pattern: Clear, Appropriate Voice Loudness: Normal Thought Process: Intact, Goal Oriented Thought Disorder: Not Present Hallucinations: Denies Suicidal Ideation: Denies Homicidal Ideation: Denies Insight/Judgement: Poor Sleep: Poorly, Difficulty falling asleep Appetite: Good Muscle strength/Tone: Normal Gait/Station: Other (walks with a cane) Psychiatric Findings - Problem List ([place] 1, 2,3) (1) Alcohol dependence with uncomplicated withdrawal Current Visit: Yes Status: Acute (2) Cocaine dependence Current Visit: Yes Status: Acute Qualifiers: Substance use status: uncomplicated Qualified Code(s): F14.20 - Cocaine dependence, uncomplicated (3) Nicotine dependence Current Visit: Yes Status: Acute Qualifiers: Nicotine product type: cigarettes Substance use status: in withdrawal Qualified Code(s): F17.213 - Nicotine dependence, cigarettes, with withdrawal (4) Insomnia Current Visit: Yes Status: Acute - Initial Treatment Plan Initial Treatment Plan: Psychoeducation.Sleep hygiene.Detoxification in progress.Well tolerated.Patient is encouraged to attend groups,community meetings and recreational activities.Ambien 10 mg po hs prn.Ordered.Patient is informed of the risk of parasomnias (sleep-walking).Mr Ramirez is in agreement with this careplan.Observation.
--- NOTE | 2017-10-11 13:07 | PN ---
S CIWA - CIWA Score Nausea/Vomitin Muscle Tremors: 3 Anxiety: 4-Mod. Anxious/Guarded Agitation: 2 Paroxysmal Sweats: 2 Orientation: 0-Oriented Tacttile Disturbances: 3-Moderate Itch/Numb/Burn Auditory Disturbances: 1-Very Mild Visual Disturbances: 0-None Headache: 0-None Present CIWA-Ar Total Score: 17 BHS Progress Note (SOAP) Subjective: Stomach Cramping, Anxious, Fatigue, Sweating, Tremors. Objective: PATIENT A & O X 3, OBSERVED AMBULATING ON UNIT. NO ACUTE DISTRESS. 10/11/17 13:06 Vital Signs Temperature 96.7 F L 10/11/17 09:01 Pulse Rate 75 10/11/17 09:01 Respiratory Rate 18 10/11/17 09:01 Blood Pressure 136/95 10/11/17 09:01 O2 Sat by Pulse Oximetry (%) Laboratory Tests 10/10/17 10/11/17 10/11/17 23:28 06:15 06:15 WBC 8.5 RBC 4.67 Hgb 14.9 Hct 44.6 MCV 95.3 MCH 31.9 MCHC 33.5 RDW 13.3 Plt Count 281 MPV 8.5 Sodium 141 Potassium 4.3 Chloride 105 Carbon Dioxide 26 Anion Gap 10 BUN 12 Creatinine 0.9 Creat Clearance w eGFR > 60 Random Glucose 102 D Calcium 9.1 Total Bilirubin 0.4 AST 19 ALT 27 Alkaline Phosphatase 83 Total Protein 7.2 Albumin 3.8 Urine Color Ltyellow Urine Appearance Clear Urine pH 6.0 Ur Specific [place] 1.015 Urine Protein Negative Urine Glucose (UA) Negative Urine Ketones Negative Urine Blood Negative Urine Nitrite Negative Urine Bilirubin Negative Urine Urobilinogen Negative Ur Leukocyte Esterase Negative RPR Titer 10/11/17 06:15 WBC RBC Hgb Hct MCV MCH MCHC RDW Plt Count MPV Sodium Potassium Chloride Carbon Dioxide Anion Gap BUN Creatinine Creat Clearance w eGFR Random Glucose Calcium Total Bilirubin AST ALT Alkaline Phosphatase Total Protein Albumin Urine Color Urine Appearance Urine pH Ur Specific [place] Urine Protein Urine Glucose (UA) Urine Ketones Urine Blood Urine Nitrite Urine Bilirubin Urine Urobilinogen Ur Leukocyte Esterase RPR Titer Nonreactive labs noted. Assessment: 10/11/17 13:06 WITHDRAWAL SYMPTOMS. Plan: CONTINUE DETOX.
[2017-10-11] MEDS: ZOLPIDEM TARTRATE 10 MG TABLET (PARK CARE ONLY) PO PRN (22:06)
[2017-10-11] MEDS: THIAMINE HCL 100 MG TABLET (FP) PO SCH (22:06)
[2017-10-12] MEDS: CYCLOBENZAPRINE HCL 10 MG TABLET (FP) PO SCH ×3 (05:03→22:12)
[2017-10-12] MEDS: chlordiazePOXIDE HCL 25 MG CAPSULE PO SCH ×3 (05:04→17:19)
[2017-10-12] MEDS: NICOTINE 14 MG/24 HOURS TOPICAL PATCH TD SCH (10:06)
[2017-10-12] MEDS: PRENATAL VITAMINS W/ FOLIC ACID TABLET (FP) PO SCH (10:06)
--- NOTE | 2017-10-12 11:30 | PN ---
S CIWA - CIWA Score Nausea/Vomitin-No Nausea/No Vomiting Muscle Tremors: 3 Anxiety: 3 Agitation: 3 Paroxysmal Sweats: 3 Orientation: 0-Oriented Tacttile Disturbances: 0-None Auditory Disturbances: 2-Mild Harshness/Frighten Visual Disturbances: 1-Very Mild Sensitivity Headache: 0-None Present CIWA-Ar Total Score: 15 S Progress Note (SOAP) Subjective: Stomach Cramping, Tremors, Sweating, Chills, Fatigue. Objective: PATIENT A & O X 3, OBSERVED AMBULATING ON UNIT. NO ACUTE DISTRESS. 10/12/17 11:28 Vital Signs Temperature 96.6 F L 10/12/17 10:24 Pulse Rate 72 10/12/17 10:24 Respiratory Rate 18 10/12/17 10:24 Blood Pressure 127/87 10/12/17 10:24 O2 Sat by Pulse Oximetry (%) Laboratory Tests 10/10/17 10/11/17 10/11/17 23:28 06:15 06:15 WBC 8.5 RBC 4.67 Hgb 14.9 Hct 44.6 MCV 95.3 MCH 31.9 MCHC 33.5 RDW 13.3 Plt Count 281 MPV 8.5 Sodium 141 Potassium 4.3 Chloride 105 Carbon Dioxide 26 Anion Gap 10 BUN 12 Creatinine 0.9 Creat Clearance w eGFR > 60 Random Glucose 102 D Calcium 9.1 Total Bilirubin 0.4 AST 19 ALT 27 Alkaline Phosphatase 83 Total Protein 7.2 Albumin 3.8 Urine Color Ltyellow Urine Appearance Clear Urine pH 6.0 Ur Specific [place] 1.015 Urine Protein Negative Urine Glucose (UA) Negative Urine Ketones Negative Urine Blood Negative Urine Nitrite Negative Urine Bilirubin Negative Urine Urobilinogen Negative Ur Leukocyte Esterase Negative RPR Titer 10/11/17 06:15 WBC RBC Hgb Hct MCV MCH MCHC RDW Plt Count MPV Sodium Potassium Chloride Carbon Dioxide Anion Gap BUN Creatinine Creat Clearance w eGFR Random Glucose Calcium Total Bilirubin AST ALT Alkaline Phosphatase Total Protein Albumin Urine Color Urine Appearance Urine pH Ur Specific [place] Urine Protein Urine Glucose (UA) Urine Ketones Urine Blood Urine Nitrite Urine Bilirubin Urine Urobilinogen Ur Leukocyte Esterase RPR Titer Nonreactive LABS NOTED. Assessment: 10/12/17 11:29 WITHDRAWAL SYMPTOMS. Plan: CONTINUE DETOX. INCREASE DAILY PO FLUID INTAKE.
[2017-10-12] MEDS ORDERED: COLLOIDAL OATMEAL 1 BAR EACH TP PRN (11:42)
[2017-10-12] MEDS: chlordiazePOXIDE 5 MG CAPSULE PO SCH (22:12)
[2017-10-12] MEDS: ZOLPIDEM TARTRATE 10 MG TABLET (PARK CARE ONLY) PO PRN (22:12)
[2017-10-12] MEDS: THIAMINE HCL 100 MG TABLET (FP) PO SCH (22:12)
[2017-10-13] MEDS: chlordiazePOXIDE 5 MG CAPSULE PO SCH ×3 (05:01→17:03)
[2017-10-13] MEDS: CYCLOBENZAPRINE HCL 10 MG TABLET (FP) PO SCH ×3 (05:01→22:02)
[2017-10-13] MEDS: PRENATAL VITAMINS W/ FOLIC ACID TABLET (FP) PO SCH (10:09)
[2017-10-13] MEDS: NICOTINE 14 MG/24 HOURS TOPICAL PATCH TD SCH (10:10)
--- NOTE | 2017-10-13 12:03 | PN ---
BHS Progress Note (SOAP) Subjective: Body Aches, Sweating, Fatigue. Objective: PATIENT A & O X 3, OBSERVED AMBULATING ON UNIT. NO ACUTE DISTRESS. 10/13/17 12:01 Vital Signs Temperature 98.6 F 10/13/17 09:24 Pulse Rate 80 10/13/17 09:24 Respiratory Rate 20 10/13/17 09:24 Blood Pressure 120/80 10/13/17 09:24 O2 Sat by Pulse Oximetry (%) Laboratory Tests 10/10/17 10/11/17 10/11/17 23:28 06:15 06:15 WBC 8.5 RBC 4.67 Hgb 14.9 Hct 44.6 MCV 95.3 MCH 31.9 MCHC 33.5 RDW 13.3 Plt Count 281 MPV 8.5 Sodium 141 Potassium 4.3 Chloride 105 Carbon Dioxide 26 Anion Gap 10 BUN 12 Creatinine 0.9 Creat Clearance w eGFR > 60 Random Glucose 102 D Calcium 9.1 Total Bilirubin 0.4 AST 19 ALT 27 Alkaline Phosphatase 83 Total Protein 7.2 Albumin 3.8 Urine Color Ltyellow Urine Appearance Clear Urine pH 6.0 Ur Specific [place] 1.015 Urine Protein Negative Urine Glucose (UA) Negative Urine Ketones Negative Urine Blood Negative Urine Nitrite Negative Urine Bilirubin Negative Urine Urobilinogen Negative Ur Leukocyte Esterase Negative RPR Titer 10/11/17 06:15 WBC RBC Hgb Hct MCV MCH MCHC RDW Plt Count MPV Sodium Potassium Chloride Carbon Dioxide Anion Gap BUN Creatinine Creat Clearance w eGFR Random Glucose Calcium Total Bilirubin AST ALT Alkaline Phosphatase Total Protein Albumin Urine Color Urine Appearance Urine pH Ur Specific [place] Urine Protein Urine Glucose (UA) Urine Ketones Urine Blood Urine Nitrite Urine Bilirubin Urine Urobilinogen Ur Leukocyte Esterase RPR Titer Nonreactive LABS NOTED. Assessment: 10/13/17 12:01 WITHDRAWAL SYMPTOMS. Plan: CONTINUED ETOX. INCREASE DAILY PO FLUID INTAKE.
[2017-10-13] MEDS: ZOLPIDEM TARTRATE 10 MG TABLET (PARK CARE ONLY) PO PRN (22:02)
[2017-10-13] MEDS: THIAMINE HCL 100 MG TABLET (FP) PO SCH (22:02)
[2017-10-13] MEDS: chlordiazePOXIDE HCL 10 MG CAPSULE PO SCH (22:02)
[2017-10-14] MEDS: CYCLOBENZAPRINE HCL 10 MG TABLET (FP) PO SCH (05:10)
[2017-10-14] MEDS: chlordiazePOXIDE HCL 10 MG CAPSULE PO SCH (05:10)
[2017-10-14 06:08] VITALS: BP 127/72; PULSE 66; TEMP 96.9
--- NOTE | 2017-10-14 16:49 | DS ---
[facility] Detox Discharge Summary Admission Date: 10/10/17 Discharge Date: 10/14/17 - History Present History: Alcohol Dependence, Cocaine Dependence Additional Comments: PATIENT WILL GO HOME AT THIS TIME TO ATTEND TO PERSONAL ISSUES AND WILL [facility]TA[facility] ON 10/16/2017 TO INQUIRE ABOUT POSSIBLE REHAB ADMISSION AT [facility] AT THAT TIME. PATIENT WAS DISCHARGED FROM DETOX UNIT IN STABLE MEDICAL CONDITION. Pertinent Past History: Nicotine dependence, Depression, History of Seizure (due to ETOH), Insomnia, Back Pain. - Physical Exam Results Vital Signs: Vital Signs Temperature 96.9 F L 10/14/17 06:08 Pulse Rate 66 10/14/17 06:08 Respiratory Rate 18 10/14/17 06:08 Blood Pressure 127/72 10/14/17 06:08 O2 Sat by Pulse Oximetry (%) Pertinent Admission Physical Exam Findings: WITHDRAWAL SYMPTOMS. Laboratory Tests 10/10/17 10/11/17 10/11/17 23:28 06:15 06:15 WBC 8.5 RBC 4.67 Hgb 14.9 Hct 44.6 MCV 95.3 MCH 31.9 MCHC 33.5 RDW 13.3 Plt Count 281 MPV 8.5 Sodium 141 Potassium 4.3 Chloride 105 Carbon Dioxide 26 Anion Gap 10 BUN 12 Creatinine 0.9 Creat Clearance w eGFR > 60 Random Glucose 102 D Calcium 9.1 Total Bilirubin 0.4 AST 19 ALT 27 Alkaline Phosphatase 83 Total Protein 7.2 Albumin 3.8 Urine Color Ltyellow Urine Appearance Clear Urine pH 6.0 Ur Specific [place] 1.015 Urine Protein Negative Urine Glucose (UA) Negative Urine Ketones Negative Urine Blood Negative Urine Nitrite Negative Urine Bilirubin Negative Urine Urobilinogen Negative Ur Leukocyte Esterase Negative RPR Titer 10/11/17 06:15 WBC RBC Hgb Hct MCV MCH MCHC RDW Plt Count MPV Sodium Potassium Chloride Carbon Dioxide Anion Gap BUN Creatinine Creat Clearance w eGFR Random Glucose Calcium Total Bilirubin AST ALT Alkaline Phosphatase Total Protein Albumin Urine Color Urine Appearance Urine pH Ur Specific [place] Urine Protein Urine Glucose (UA) Urine Ketones Urine Blood Urine Nitrite Urine Bilirubin Urine Urobilinogen Ur Leukocyte Esterase RPR Titer Nonreactive LABS NOTED. - Treatment Hospital Course: Detox Protocol Followed, Detoxed Safely, Responded well, Discharged Condition Good, Rehab Referral Accepted Patient has Accepted a Rehab Referral to: [facility] ([facility] . - Diagnosis (1) Alcohol dependence with uncomplicated withdrawal Status: Acute (2) Cocaine dependence Status: Acute Qualifiers: Substance use status: uncomplicated Qualified Code(s): F14.20 - Cocaine dependence, uncomplicated (3) Nicotine dependence Status: Acute Qualifiers: Nicotine product type: cigarettes Substance use status: in withdrawal Qualified Code(s): F17.213 - Nicotine dependence, cigarettes, with withdrawal (4) Back pain Status: Chronic Qualifiers: Back pain location: back pain in unspecified location Chronicity: unspecified Back pain laterality: unspecified Qualified Code(s): M54.9 - Dorsalgia, unspecified (5) Hx of seizure disorder Status: Chronic (6) Insomnia Status: Acute Qualifiers: Insomnia type: unspecified Qualified Code(s): G47.00 - Insomnia, unspecified - AMA Did Patient Leave Against Medical Advice: No
== END 2017-10-14 08:47 | disposition home or self-care (01) | DRG 774 ==
LOC: YASAS 16:04 → Y3N 19:12
PROVIDERS: ADMIT Internal Medicine; ATTEND Internal Medicine
PROC: HZ2ZZZZ Detoxification Services for Substance Abuse Treatment (ICD-10-PCS; principal; 2017-10-10)
DX: F10.230 Alcohol dependence with withdrawal, uncomplicated (principal); F14.20 Cocaine dependence, uncomplicated; F17.213 Nicotine dependence, cigarettes, with withdrawal; G47.00 Insomnia, unspecified; M54.9 Dorsalgia, unspecified; G89.29 Other chronic pain; Z86.69 Personal history of other diseases of the nervous system and sense organs; Z91.013 Allergy to seafood
CPT/HCPCS: 36415; 80053; 81003; 85027; 86593; 93005; 93010

== ENCOUNTER 2018-03-30 12:32 | Inpatient (IN) | payer OTHER ==
[2018-03-30 15:13] VITALS: BMI 25.8
--- NOTE | 2018-03-30 18:36 | HP ---
CIWA Score - CIWA Score Nausea/Vomitin-No Nausea/No Vomiting Muscle Tremors: 3 Anxiety: 5 Agitation: 4-Moderately Restless Paroxysmal Sweats: 1-Minimal Palms Moist Orientation: 0-Oriented Tacttile Disturbances: 0-None Auditory Disturbances: 0-None Visual Disturbances: 0-None Headache: 0-None Present CIWA-Ar Total Score: 13 Admission ROS BHS - HPI Chief Complaint: ALCOHOL WITHDRAWAL SX Allergies/Adverse Reactions: Allergies Allergy/AdvReac Type Severity Reaction Status Date / Time Fish Containing Products Allergy Verified 03/30/18 17:38 No Known Drug Allergies Allergy Verified 03/30/18 17:38 History of Present Illness: 32 Y/O H/MALE WITH A HX OF ALCOHOL,COCAINE AND MARIJUANA DEPENDENCE SEEKING DETOX TX. PT HAS PREVIOUS TREATMENT EPISODES. Exam Limitations: No Limitations, Clinical Condition - Ebola screening Have you traveled outside of the country in the last 21 days: No Have you had contact with anyone from an Ebola affected area: No Have you been sick,other than usual withdrawal symptoms: No Do you have a fever: No - Review of Systems Constitutional: Chills, Loss of Appetite, Night Sweats, Changes in sleep EENT: reports: Blurred Vision (WEARS GLASSES), Tearing, Nose Congestion Respiratory: reports: No Symptoms reported Cardiac: reports: Chest Pain, Lightheadedness, Chest Tightness GI: reports: Nausea, Poor Appetite, Poor Fluid Intake : reports: Dysuria Musculoskeletal: reports: Back Pain (HX HERNIATED DISC) Integumentary: reports: No Symptoms Reported Neuro: reports: Headache, Seizure (HX DUE TO DRUG USE), Dizziness Endocrine: reports: No Symptoms Reported Hematology: reports: No Symptoms Reported Psychiatric: reports: Orientated x3, Anxious, Depressed Other Systems: Reviewed and Negative Patient History - Patient Medical History Hx Anemia: No Hx Asthma: No Hx Chronic Obstructive Pulmonary Disease (COPD): No Hx Cancer: No Hx Cardiac Disorders: No Hx Congestive Heart Failure: No Hx Hypertension: Yes (Not on medication) Hx Hypercholesterolemia: No Hx Pacemaker: No HX Cerebrovascular Accident: No Hx Seizures: Yes (DUE TO DRUG USE ;Not on medication) Hx Dementia: No Hx Diabetes: No Hx Gastrointestinal Disorders: No Hx Liver Disease: No Hx Genitourinary Disorders: No Hx Sexually Transmitted Disorders: No (DENIES) Hx Renal Disease (ESRD): No Hx Thyroid Disease: No Hx Human Immunodeficiency Virus (HIV): No (NEGATIVE 2017) Hx Hepatitis C: No Hx Depression: Yes (Not on medication) Hx Suicide Attempt: No (DENIES) Hx Bipolar Disorder: No Hx Schizophrenia: No - Patient Surgical History Past Surgical History: Yes Hx Neurologic Surgery: No Hx Cataract Extraction: No Hx Cardiac Surgery: No Hx Lung Surgery: No Hx Breast Surgery: No Hx Breast Biopsy: No Hx Abdominal Surgery: No Hx Appendectomy: No Hx Cholecystectomy: No Hx Genitourinary Surgery: No Hx Orthopedic Surgery: Yes (LEFT ANKLE 2015) Anesthesia Reaction: No - PPD History Date: 04/30/17 PPD to be Administered?: Yes - Reproductive History Patient is a Female of Child Bearing Age (11 -55 yrs old): No (MALE) - Smoking Cessation Smoking history: Current every day smoker Have you smoked in the past 12 months: Yes Aproximately how many cigarettes per day: 10 Cigars Per Day: 0 Hx Chewing Tobacco Use: No Initiated information on smoking cessation: Yes 'Breaking Loose' booklet given: 03/30/18 - Substance & Tx. History Hx Alcohol Use: Yes (BEER) Hx Substance Use: Yes (COCAINE/MARIJUANA) Substance Use Type: Alcohol, Cocaine, Marijuana Hx Substance Use Treatment: Yes (LAST TX AT [facility]) - Substances Abused Alcohol Route: Oral Frequency: Daily Amount used: 20 BEERS Age of first use: 21 Date of Last Use: 03/30/18 Cocaine Route: Smoking Frequency: Daily Amount used: 2/20 Age of first use: 25 Date of Last Use: 03/30/18 Marijuana/Hashish Route: Smoking Frequency: 1-3 times last 30 days Amount used: 1 BLUNT Age of first use: 20 Date of Last Use: 03/29/18 Family Disease History - Family Disease History Family Disease History: Diabetes: Father (HTN), Other: Father Admission Physical Exam BHS - Vital Signs Vital Signs: Vital Signs - 24 hr 03/30/18 14:44 Temperature 99.0 F Pulse Rate 106 H Respiratory 18 Rate Blood Pressure 144/67 - Physical General Appearance: Yes: Appropriately Dressed, Moderate Distress, Irritable, Anxious HEENTM: Yes: EOMI, Normocephalic, SHADIA, Pharynx Normal Respiratory: Yes: Chest Non-Tender, Lungs Clear, Normal Breath Sounds, No Respiratory Distress Neck: Yes: No masses,lesions,Nodules, Supple, Trachea in good position Breast: Yes: Breast Exam Deferred Cardiology: Yes: Regular Rhythm, Regular Rate, S1, S2 Abdominal: Yes: Normal Bowel Sounds, Non Tender, Flat, Soft Genitourinary: Yes: Other (N/C) Back: Yes: Within Normal Limits Musculoskeletal: Yes: full range of Motion, Gait Steady Extremities: Yes: Normal Range of Motion, Non-Tender Neurological: Yes: case reviewer II-XII NML intact, Fully Oriented, Alert, Motor Strength 5/5 Integumentary: Yes: Dry, Warm Lymphatic: Yes: Within Normal Limits - Diagnostic (1) Cannabis dependence, uncomplicated Current Visit: Yes Status: Acute (2) Cocaine dependence Current Visit: Yes Status: Acute Qualifiers: Substance use status: uncomplicated Qualified Code(s): F14.20 - Cocaine dependence, uncomplicated (3) GERD (gastroesophageal reflux disease) Current Visit: Yes Status: Chronic Qualifiers: Esophagitis presence: esophagitis presence not specified Qualified Code(s) : K21.9 - Gastro-esophageal reflux disease without esophagitis (4) History of fracture of left ankle Current Visit: Yes Status: Chronic (5) Nicotine dependence Current Visit: Yes Status: Chronic Qualifiers: Nicotine product type: cigarettes Substance use status: in withdrawal Qualified Code(s): F17.213 - Nicotine dependence, cigarettes, with withdrawal (6) HTN (hypertension) Current Visit: Yes Status: Suspected Qualifiers: Hypertension type: unspecified Qualified Code(s): I10 - Essential (primary ) hypertension (7) Hx of seizure disorder Current Visit: Yes Status: Suspected (8) Alcohol dependence with uncomplicated withdrawal Current Visit: No Status: Acute Cleared for Admission [facility] - Detox or Rehab [facility] Level of Care: Medically Managed Detox Regimen/Protocol: Librium [facility] Breath Alcohol Content Breath Alcohol Content: 0.159 Urine Drug Screen - Results Drug Screen Negative: No Urine Drug Screen Results: THC-Marijuana, JULIANO-Cocaine, BZO-Benzodiazepines
[2018-03-30] MEDS ORDERED: MAG HYDROX/AL HYDROX/SIMETH 30 ML UNIT-DOSE CUP PO PRN (18:40)
[2018-03-30] MEDS ORDERED: MENTHOL/PHENOL 1 EACH UD MM PRN (18:40)
[2018-03-30] MEDS ORDERED: guaiFENesin/D-METHORPHAN HB 10 ML UNIT-DOSE CUPS PO PRN (18:40)
[2018-03-30] MEDS ORDERED: ACETAMINOPHEN 325 MG TABLET (FP) PO PRN (18:40)
[2018-03-30] MEDS ORDERED: hydrOXYzine PAMOATE 50 MG CAPSULE (FP) PO PRN (18:40)
[2018-03-30] MEDS ORDERED: P-EPHED 60MG/TRIPROLIDI 2.5MG TABLET PO PRN (18:40)
[2018-03-30] MEDS ORDERED: MAGNESIUM HYDROX 2400MG/30ML ORAL SUSPENSION 30 ML CUP PO PRN (18:40)
[2018-03-30] MEDS ORDERED: IBUPROFEN 400 MG TABLET (FP) PO PRN (18:40)
[2018-03-30] MEDS ORDERED: NICOTINE POLACRILEX 2 MG GUM BC PRN (18:40)
[2018-03-30] MEDS ORDERED: LOPERAMIDE HCL 2 MG CAPSULE PO PRN (18:40)
[2018-03-30] MEDS ORDERED: MAGNESIUM CITRATE 300 ML BOTTLE PO PRN (18:40)
[2018-03-30] MEDS ORDERED: chlordiazePOXIDE HCL 25 MG CAPSULE PO PRN (18:40)
[2018-03-30] MEDS: NICOTINE 14 MG/24 HOURS TOPICAL PATCH TD SCH (20:02)
[2018-03-30] MEDS ORDERED: MELATONIN 5 MG TABLETS PO PRN (22:00)
[2018-03-30 22:46] LABS: URINE APPEARANCE CLEAR; URINE BILIRUBIN NEGATIVE (<2.0 mg/dL); URINE COLOR DKYELLOW; URINE GLUCOSE (UA) NEGATIVE (NEGATIVE); URINE KETONE NEGATIVE (NEGATIVE); URINE LEUK ESTERASE NEGATIVE (NEGATIVE); URINE NITRITE NEGATIVE (NEGATIVE); URINE PROTEIN NEGATIVE (NEGATIVE); URINE UROBILINOGEN NEGATIVE mg/dL (0.2-1.0)
[2018-03-30] MEDS: chlordiazePOXIDE HCL 25 MG CAPSULE PO SCH (23:20)
[2018-03-30] MEDS: THIAMINE HCL 100 MG TABLET (FP) PO SCH (23:21)
[2018-03-31] MEDS: chlordiazePOXIDE HCL 25 MG CAPSULE PO SCH ×4 (05:46→22:06)
[2018-03-31] MEDS: PRENATAL VITAMINS W/ FOLIC ACID TABLET (FP) PO SCH (10:21)
[2018-03-31] MEDS: NICOTINE 14 MG/24 HOURS TOPICAL PATCH TD SCH (10:21)
[2018-03-31 10:29] LABS: HEMATOCRIT 45.1 % (35.4-49); HEMOGLOBIN 15.4 GM/dL (11.7-16.9); MCH 32.1 pg (25.7-33.7); MCHC 34.2 g/dl (32.0-35.9); MEAN CELL VOLUME 93.9 fl (80-96); MEAN PLT VOLUME 8.2 fl (7.5-11.1); PLATELET COUNT 256 K/MM3 (134-434); RDW 13.4 % (11.9-15.9); WHITE BLOOD COUNT 8.6 K/mm3 (4.0-10.0)
[2018-03-31 10:52] LABS: ALBUMIN 3.9 g/dl (3.4-5.0); ANION GAP 6 (8-16); BLOOD UREA NITROGEN 14 mg/dL (7-18); CALCIUM 8.9 mg/dL (8.5-10.1); CHLORIDE 105 mmol/L (98-107); CO2 31 mmol/L (21-32); CREATININE 0.9 mg/dL (0.7-1.3); GLUCOSE,RANDOM 76 mg/dL (74-106); POTASSIUM 4.4 mmol/L (3.5-5.1); SGOT/AST 43 U/L (15-37); SGPT/ALT 66 U/L (12-78); SODIUM 142 mmol/L (136-145)
[2018-03-31 10:53] LABS: ALK PHOS 78 U/L (45-117); BILIRUBIN,TOTAL 0.3 mg/dL (0.2-1.0)
--- NOTE | 2018-03-31 14:23 | PN ---
S CIWA - CIWA Score Nausea/Vomitin Muscle Tremors: 3 Anxiety: 3 Agitation: 3 Paroxysmal Sweats: 1-Minimal Palms Moist Orientation: 0-Oriented Tacttile Disturbances: 1-Very Mild Itch/Numbness Auditory Disturbances: 1-Very Mild Visual Disturbances: 0-None Headache: 2-Mild CIWA-Ar Total Score: 17 BHS Progress Note (SOAP) Subjective: alert,irritable,anxious,interrupted sleep,pain in the body Objective: 03/31/18 14:21 Vital Signs Temperature 96.8 F L 03/31/18 09:58 Pulse Rate 62 03/31/18 09:58 Respiratory Rate 18 03/31/18 09:58 Blood Pressure 110/64 03/31/18 09:58 O2 Sat by Pulse Oximetry (%) 03/31/18 14:21 ekg nsr,normal ecg qt/qtc 340/420 Laboratory Last Values WBC 8.6 K/mm3 (4.0-10.0) 03/31/18 08:00 RBC 4.80 M/mm3 (4.00-5.60) 03/31/18 08:00 Hgb 15.4 GM/dL (11.7-16.9) 03/31/18 08:00 Hct 45.1 % (35.4-49) 03/31/18 08:00 MCV 93.9 fl (80-96) 03/31/18 08:00 MCH 32.1 pg (25.7-33.7) 03/31/18 08:00 MCHC 34.2 g/dl (32.0-35.9) 03/31/18 08:00 RDW 13.4 % (11.9-15.9) 03/31/18 08:00 Plt Count 256 K/MM3 (134-434) 03/31/18 08:00 MPV 8.2 fl (7.5-11.1) 03/31/18 08:00 Sodium 142 mmol/L (136-145) 03/31/18 08:00 Potassium 4.4 mmol/L (3.5-5.1) D 03/31/18 08:00 Chloride 105 mmol/L (98-107) 03/31/18 08:00 Carbon Dioxide 31 mmol/L (21-32) 03/31/18 08:00 Anion Gap 6 (8-16) L 03/31/18 08:00 BUN 14 mg/dL (7-18) 03/31/18 08:00 Creatinine 0.9 mg/dL (0.7-1.3) 03/31/18 08:00 Creat Clearance w eGFR > 60 (>60) 03/31/18 08:00 Random Glucose 76 mg/dL (74-106) 03/31/18 08:00 Calcium 8.9 mg/dL (8.5-10.1) 03/31/18 08:00 Total Bilirubin 0.3 mg/dL (0.2-1.0) 03/31/18 08:00 AST 43 U/L (15-37) H D 03/31/18 08:00 ALT 66 U/L (12-78) D 03/31/18 08:00 Alkaline Phosphatase 78 U/L (45-117) 03/31/18 08:00 Total Protein 7.0 g/dl (6.4-8.2) 03/31/18 08:00 Albumin 3.9 g/dl (3.4-5.0) 03/31/18 08:00 Urine Color Dkyellow 03/30/18 21:30 Urine Appearance Clear 03/30/18 21:30 Urine pH 6.0 (5.0-8.0) 03/30/18 21:30 Ur Specific [place] 1.025 (1.001-1.035) 03/30/18 21:30 Urine Protein Negative (NEGATIVE) 03/30/18 21:30 Urine Glucose (UA) Negative (NEGATIVE) 03/30/18 21:30 Urine Ketones Negative (NEGATIVE) 03/30/18 21:30 Urine Blood Negative (NEGATIVE) 03/30/18 21:30 Urine Nitrite Negative (NEGATIVE) 03/30/18 21:30 Urine Bilirubin Negative (<2.0 mg/dL) 03/30/18 21:30 Urine Urobilinogen Negative mg/dL (0.2-1.0) 03/30/18 21:30 Ur Leukocyte Esterase Negative (NEGATIVE) 03/30/18 21:30 RPR Titer Nonreactive (NONREACTIVE) 03/31/18 08:00 Assessment: 03/31/18 14:22 withdrawal symptom Plan: continue detox
--- NOTE | 2018-03-31 16:31 | CONSULT ---
[facility] Psychiatric Consult - Data Date of interview: 03/31/18 Admission source: [facility] Identifying data: This is one of multiple admissions to [facility] for this 32 y/ o male seeking detox treatment on for alcohol,cannabis and cocaine dependence.Patient is single,a father of four,domiciled,currently unemployed and supported on Public Assistance. Substance Abuse History: Confirmed by patient in this interview.Smoking history : Current every day smoker. Have you smoked in the past 12 months: Yes. Aproximately how many cigarettes per day: 10. Cigars Per Day: 0. Hx Chewing Tobacco Use: No. Initiated information on smoking cessation: Yes. 'Breaking Loose' booklet given: 03/30/18. - Substance & Tx. History. Hx Alcohol Use: Yes (BEER). Hx Substance Use: Yes (COCAINE/MARIJUANA). Substance Use Type: Alcohol, Cocaine, Marijuana. Hx Substance Use Treatment: Yes (LAST TX AT [facility]) . - Substances Abused. Alcohol. Route: Oral. Frequency: Daily. Amount used: 20 BEERS. Age of first use: 21. Date of Last Use: 03/30/18. Cocaine. Route: Smoking. Frequency: Daily. Amount used: 2/20. Age of first use: 25. Date of Last Use: 03/30/18. Marijuana/Hashish. Route: Smoking. Frequency: 1-3 times last 30 days. Amount used: 1 BLUNT. Age of first use: 20. Date of Last Use: 03/29/18 Medical History: Hypertension,lower back pain from " slipped discs ",antecedent of withdrawal-related seizures and a recent history of orthosurgery (job- related fracture of left ankle). Psychiatric History: History of one psychiatric hospitalization " a couple of years ago ".In fact, the patient had informed this technical writer and editor, in a previous interview, that the admission took place in [address] [facility] [place] ([facility]).Reasons : depressed mood and suicidal ideation.Patient was diagnosed with MDD, retained briefly and discharged without psychotropic medications.Mr Ramirez abstained from OPD care.Never followed up with psychiatric aftercare since his release from [facility].Mr Ramirez denies history of suicide attempts. Physical/Sexual Abuse/Trauma History: Patient denies. Additional Comment: Urine Drug Screen Results: THC-Marijuana, JULIANO-Cocaine, BZO- Benzodiazepines.Noted. Mental Status Exam - Mental Status Exam Alert and Oriented to: Time, Place, Person Cognitive Function: Good Patient Appearance: Well Groomed Mood: Nervous, Withdrawn Affect: Mood Congruent Patient Behavior: Cooperative Speech Pattern: Clear, Appropriate Voice Loudness: Normal Thought Process: Intact, Goal Oriented Thought Disorder: Not Present Hallucinations: Denies Suicidal Ideation: Denies Homicidal Ideation: Denies Insight/Judgement: Poor Sleep: Poorly, Difficulty falling asleep Appetite: Good Muscle strength/Tone: Normal Gait/Station: Normal Psychiatric Findings - Problem List ([place] 1, 2,3) (1) Alcohol dependence with uncomplicated withdrawal Current Visit: Yes Status: Acute (2) Cannabis dependence, uncomplicated Current Visit: Yes Status: Acute (3) Cocaine dependence Current Visit: Yes Status: Acute Qualifiers: Substance use status: uncomplicated Qualified Code(s): F14.20 - Cocaine dependence, uncomplicated (4) Nicotine dependence Current Visit: Yes Status: Acute Qualifiers: Nicotine product type: cigarettes Substance use status: in withdrawal Qualified Code(s): F17.213 - Nicotine dependence, cigarettes, with withdrawal (5) Drug-induced mood disorder Current Visit: Yes Status: Acute (6) Insomnia Current Visit: Yes Status: Acute Qualifiers: Insomnia type: unspecified Qualified Code(s): G47.00 - Insomnia, unspecified - Initial Treatment Plan Initial Treatment Plan: Psychoeducation.Sleep hygiene discussed.Detoxification.Ambien 5 mg po hs prn.Patient is made aware of the risk of parasomnias.Agrees to this careplan.Observation.
[2018-03-31] MEDS: CYCLOBENZAPRINE HCL 10 MG TABLET (FP) PO PRN (17:23)
--- NOTE | 2018-03-31 19:01 | EKG ---
Test Reason : Blood Pressure : / mmHG Vent. Rate : 092 BPM Atrial Rate : 092 BPM P-R Int : 158 ms QRS Dur : 088 ms QT Int : 340 ms P-R-T Axes : 073 063 046 degrees QTc Int : 420 ms NORMAL SINUS RHYTHM NORMAL ECG WHEN COMPARED WITH ECG OF 07-FEB-2018 22:23, NO SIGNIFICANT CHANGE WAS FOUND Confirmed by MD TIKA, ROBERT ([id number]) on 03/31/2018 7:00:44 PM Referred By: Confirmed By:ROBERT VILELLA MD
[2018-03-31] MEDS: ZOLPIDEM TARTRATE 5 MG TABLET PO PRN (22:06)
[2018-03-31] MEDS: THIAMINE HCL 100 MG TABLET (FP) PO SCH (22:06)
[2018-04-01] MEDS: chlordiazePOXIDE HCL 25 MG CAPSULE PO SCH ×3 (06:05→17:32)
[2018-04-01] MEDS: CYCLOBENZAPRINE HCL 10 MG TABLET (FP) PO PRN ×2 (06:06→17:34)
[2018-04-01] MEDS: PRENATAL VITAMINS W/ FOLIC ACID TABLET (FP) PO SCH (10:48)
[2018-04-01] MEDS: NICOTINE 14 MG/24 HOURS TOPICAL PATCH TD SCH (10:49)
--- NOTE | 2018-04-01 17:46 | PN ---
[facility] CIWA - CIWA Score Nausea/Vomitin-Mild Nausea/No Vomiting Muscle Tremors: 1-None Visible, but [place] Anxiety: 1-Mildly Anxious Agitation: 0-Normal Activity Paroxysmal Sweats: No Perspiration Orientation: 0-Oriented Tacttile Disturbances: 0-None Auditory Disturbances: 0-None Visual Disturbances: 0-None Headache: 0-None Present CIWA-Ar Total Score: 3 BHS Progress Note (SOAP) Subjective: Mild nausea - tolerating diet. mild anxiety. Objective: Scored 3 on CIWA. Alert and oriented x 3. Lungs CTA. Abdomen soft and non- tender. Hyperactive bowel sounds. Vital Signs - 8 hr 04/01/18 04/01/18 10:00 15:17 Temperature 98.2 F 97.5 F L Pulse Rate 71 58 L Respiratory 16 16 Rate Blood Pressure 109/66 119/57 Laboratory Last Values WBC 8.6 K/mm3 (4.0-10.0) 03/31/18 08:00 RBC 4.80 M/mm3 (4.00-5.60) 03/31/18 08:00 Hgb 15.4 GM/dL (11.7-16.9) 03/31/18 08:00 Hct 45.1 % (35.4-49) 03/31/18 08:00 MCV 93.9 fl (80-96) 03/31/18 08:00 MCH 32.1 pg (25.7-33.7) 03/31/18 08:00 MCHC 34.2 g/dl (32.0-35.9) 03/31/18 08:00 RDW 13.4 % (11.9-15.9) 03/31/18 08:00 Plt Count 256 K/MM3 (134-434) 03/31/18 08:00 MPV 8.2 fl (7.5-11.1) 03/31/18 08:00 Sodium 142 mmol/L (136-145) 03/31/18 08:00 Potassium 4.4 mmol/L (3.5-5.1) D 03/31/18 08:00 Chloride 105 mmol/L (98-107) 03/31/18 08:00 Carbon Dioxide 31 mmol/L (21-32) 03/31/18 08:00 Anion Gap 6 (8-16) L 03/31/18 08:00 BUN 14 mg/dL (7-18) 03/31/18 08:00 Creatinine 0.9 mg/dL (0.7-1.3) 03/31/18 08:00 Creat Clearance w eGFR > 60 (>60) 03/31/18 08:00 Random Glucose 76 mg/dL (74-106) 03/31/18 08:00 Calcium 8.9 mg/dL (8.5-10.1) 03/31/18 08:00 Total Bilirubin 0.3 mg/dL (0.2-1.0) 03/31/18 08:00 AST 43 U/L (15-37) H D 03/31/18 08:00 ALT 66 U/L (12-78) D 03/31/18 08:00 Alkaline Phosphatase 78 U/L (45-117) 03/31/18 08:00 Total Protein 7.0 g/dl (6.4-8.2) 03/31/18 08:00 Albumin 3.9 g/dl (3.4-5.0) 03/31/18 08:00 Urine Color Dkyellow 03/30/18 21:30 Urine Appearance Clear 03/30/18 21:30 Urine pH 6.0 (5.0-8.0) 03/30/18 21:30 Ur Specific [place] 1.025 (1.001-1.035) 03/30/18 21:30 Urine Protein Negative (NEGATIVE) 03/30/18 21:30 Urine Glucose (UA) Negative (NEGATIVE) 03/30/18 21:30 Urine Ketones Negative (NEGATIVE) 03/30/18 21:30 Urine Blood Negative (NEGATIVE) 03/30/18 21:30 Urine Nitrite Negative (NEGATIVE) 03/30/18 21:30 Urine Bilirubin Negative (<2.0 mg/dL) 03/30/18 21:30 Urine Urobilinogen Negative mg/dL (0.2-1.0) 03/30/18 21:30 Ur Leukocyte Esterase Negative (NEGATIVE) 03/30/18 21:30 RPR Titer Nonreactive (NONREACTIVE) 03/31/18 08:00 labs reviewed. 04/01/18 17:48 Assessment: Alcohol withdrawal. Plan: Continue detox protocol.
[2018-04-01] MEDS: chlordiazePOXIDE 5 MG CAPSULE PO SCH (22:12)
[2018-04-01] MEDS: ZOLPIDEM TARTRATE 5 MG TABLET PO PRN (22:12)
[2018-04-01] MEDS: THIAMINE HCL 100 MG TABLET (FP) PO SCH (22:12)
[2018-04-02] MEDS: chlordiazePOXIDE 5 MG CAPSULE PO SCH ×2 (06:21→10:17)
[2018-04-02] MEDS: CYCLOBENZAPRINE HCL 10 MG TABLET (FP) PO PRN (06:22)
[2018-04-02] MEDS: PRENATAL VITAMINS W/ FOLIC ACID TABLET (FP) PO SCH (10:17)
[2018-04-02] MEDS: NICOTINE 14 MG/24 HOURS TOPICAL PATCH TD SCH (10:18)
[2018-04-02 11:06] VITALS: BP 122/76; PULSE 61; TEMP 96.4
--- NOTE | 2018-04-02 12:44 | PN ---
S Progress Note (SOAP) Subjective: alert,irritable,interrupted sleep Objective: 04/02/18 12:43 Vital Signs Temperature 96.4 F L 04/02/18 11:05 Pulse Rate 61 04/02/18 11:05 Respiratory Rate 20 04/02/18 11:05 Blood Pressure 122/76 04/02/18 11:05 O2 Sat by Pulse Oximetry (%) Assessment: 04/02/18 12:43 withdrawal symptom Plan: continue detox,discharge in am
--- NOTE | 2018-04-02 13:18 | PN ---
BHS Progress Note Note: patient is stable for discharge today
--- NOTE | 2018-04-02 13:22 | DS ---
[facility] Detox Discharge Summary Admission Date: 03/30/18 Discharge Date: 04/02/18 - History Present History: Alcohol Dependence, Cannabis Dependence, Cocaine Dependence Additional Comments: follow up with after care program as arrangement Pertinent Past History: nicotine dependence hypertension seizure old fx left ankle - Physical Exam Results Vital Signs: Vital Signs Temperature 96.4 F L 04/02/18 11:05 Pulse Rate 61 04/02/18 11:05 Respiratory Rate 20 04/02/18 11:05 Blood Pressure 122/76 04/02/18 11:05 O2 Sat by Pulse Oximetry (%) Pertinent Admission Physical Exam Findings: withdrawal signs and symptom Vital Signs Temperature 96.4 F L 04/02/18 11:05 Pulse Rate 61 04/02/18 11:05 Respiratory Rate 20 04/02/18 11:05 Blood Pressure 122/76 04/02/18 11:05 O2 Sat by Pulse Oximetry (%) Laboratory Last Values WBC 8.6 K/mm3 (4.0-10.0) 03/31/18 08:00 RBC 4.80 M/mm3 (4.00-5.60) 03/31/18 08:00 Hgb 15.4 GM/dL (11.7-16.9) 03/31/18 08:00 Hct 45.1 % (35.4-49) 03/31/18 08:00 MCV 93.9 fl (80-96) 03/31/18 08:00 MCH 32.1 pg (25.7-33.7) 03/31/18 08:00 MCHC 34.2 g/dl (32.0-35.9) 03/31/18 08:00 RDW 13.4 % (11.9-15.9) 03/31/18 08:00 Plt Count 256 K/MM3 (134-434) 03/31/18 08:00 MPV 8.2 fl (7.5-11.1) 03/31/18 08:00 Sodium 142 mmol/L (136-145) 03/31/18 08:00 Potassium 4.4 mmol/L (3.5-5.1) D 03/31/18 08:00 Chloride 105 mmol/L (98-107) 03/31/18 08:00 Carbon Dioxide 31 mmol/L (21-32) 03/31/18 08:00 Anion Gap 6 (8-16) L 03/31/18 08:00 BUN 14 mg/dL (7-18) 03/31/18 08:00 Creatinine 0.9 mg/dL (0.7-1.3) 03/31/18 08:00 Creat Clearance w eGFR > 60 (>60) 03/31/18 08:00 Random Glucose 76 mg/dL (74-106) 03/31/18 08:00 Calcium 8.9 mg/dL (8.5-10.1) 03/31/18 08:00 Total Bilirubin 0.3 mg/dL (0.2-1.0) 03/31/18 08:00 AST 43 U/L (15-37) H D 03/31/18 08:00 ALT 66 U/L (12-78) D 03/31/18 08:00 Alkaline Phosphatase 78 U/L (45-117) 03/31/18 08:00 Total Protein 7.0 g/dl (6.4-8.2) 03/31/18 08:00 Albumin 3.9 g/dl (3.4-5.0) 03/31/18 08:00 Urine Color Dkyellow 03/30/18 21:30 Urine Appearance Clear 03/30/18 21:30 Urine pH 6.0 (5.0-8.0) 03/30/18 21:30 Ur Specific [place] 1.025 (1.001-1.035) 03/30/18 21:30 Urine Protein Negative (NEGATIVE) 03/30/18 21:30 Urine Glucose (UA) Negative (NEGATIVE) 03/30/18 21:30 Urine Ketones Negative (NEGATIVE) 03/30/18 21:30 Urine Blood Negative (NEGATIVE) 03/30/18 21:30 Urine Nitrite Negative (NEGATIVE) 03/30/18 21:30 Urine Bilirubin Negative (<2.0 mg/dL) 03/30/18 21:30 Urine Urobilinogen Negative mg/dL (0.2-1.0) 03/30/18 21:30 Ur Leukocyte Esterase Negative (NEGATIVE) 03/30/18 21:30 RPR Titer Nonreactive (NONREACTIVE) 03/31/18 08:00 - Treatment Hospital Course: Detox Protocol Followed, Detoxed Safely, Responded well, Discharged Condition Good Patient has Accepted a Rehab Referral to: [facility] - Medication Discharge Medications: Ambulatory Orders Cyclobenzaprine HCl [Flexeril 10 mg] 10 mg PO BID PRN 02/07/18 Zolpidem Tartrate [Ambien] 5 mg PO HS 02/07/18 Oxycodone HCl/Acetaminophen [Percocet 10-325 mg Tablet] 1 each PO PRN 03/30/18 - Diagnosis (1) Alcohol dependence with uncomplicated withdrawal Current Visit: Yes Status: Acute (2) Cannabis dependence, uncomplicated Current Visit: Yes Status: Acute (3) Cocaine dependence Current Visit: Yes Status: Acute Qualifiers: Substance use status: uncomplicated Qualified Code(s): F14.20 - Cocaine dependence, uncomplicated (4) GERD (gastroesophageal reflux disease) Current Visit: Yes Status: Chronic Qualifiers: Esophagitis presence: esophagitis presence not specified Qualified Code(s) : K21.9 - Gastro-esophageal reflux disease without esophagitis (5) History of fracture of left ankle Current Visit: Yes Status: Chronic (6) Nicotine dependence Current Visit: Yes Status: Acute Qualifiers: Nicotine product type: cigarettes Substance use status: in withdrawal Qualified Code(s): F17.213 - Nicotine dependence, cigarettes, with withdrawal (7) HTN (hypertension) Current Visit: Yes Status: Suspected Qualifiers: Hypertension type: unspecified Qualified Code(s): I10 - Essential (primary ) hypertension (8) Hx of seizure disorder Current Visit: Yes Status: Suspected (9) Weight loss Current Visit: No Status: Acute - AMA Did Patient Leave Against Medical Advice: No
[2018-04-02] MEDS ORDERED: chlordiazePOXIDE HCL 10 MG CAPSULE PO SCH (23:00)
== END 2018-04-02 13:42 | disposition home or self-care (01) | DRG 774 ==
LOC: YASAS 12:32 → Y6N 17:58
PROVIDERS: ADMIT Surgery; ATTEND Surgery
PROC: HZ2ZZZZ Detoxification Services for Substance Abuse Treatment (ICD-10-PCS; principal; 2018-03-30)
DX: F10.230 Alcohol dependence with withdrawal, uncomplicated (principal); F14.20 Cocaine dependence, uncomplicated; F12.20 Cannabis dependence, uncomplicated; F17.213 Nicotine dependence, cigarettes, with withdrawal; F19.24 Other psychoactive substance dependence with psychoactive substance-induced mood disorder; I10 Essential (primary) hypertension; K21.9 Gastro-esophageal reflux disease without esophagitis; G47.00 Insomnia, unspecified; Z91.013 Allergy to seafood; Z87.81 Personal history of (healed) traumatic fracture; Z86.69 Personal history of other diseases of the nervous system and sense organs; Z87.898 Personal history of other specified conditions
CPT/HCPCS: 36415; 80053; 81003; 85027; 86593; 93005; 93010

== ENCOUNTER 2018-06-21 11:57 | Inpatient (IN) | payer OTHER ==
[2018-06-21 13:17] VITALS: BMI 25.5
--- NOTE | 2018-06-21 14:52 | HP ---
CIWA Score Nausea/Vomitin Muscle Tremors: 2 Anxiety: 2 Agitation: 2 Paroxysmal Sweats: 1-Minimal Palms Moist Orientation: 0-Oriented Tacttile Disturbances: 1-Very Mild Itch/Numbness Auditory Disturbances: 1-Very Mild Visual Disturbances: 1-Very Mild Sensitivity Headache: 2-Mild CIWA-Ar Total Score: 14 - Admission Criteria OASAS Guidelines: Admission for Medically Managed Detox: Requires at least one of the followin. CIWA greater than 12 2. Seizures within the past 24 hours 3. Delirium tremens within the past 24 hours 4. Hallucinations within the past 24 hours 5. Acute intervention needed for co occurring medical disorder 6. Acute intervention needed for co occurring psychiatric disorder 7. Severe withdrawal that cannot be handled at a lower level of care (continued vomiting, continued diarrhea, abnormal vital signs) requiring intravenous medication and/or fluids 8. Admission ROS [facility] - HPI Chief Complaint: i need help to stop drinking alcohol,cocaine Allergies/Adverse Reactions: Allergies Allergy/AdvReac Type Severity Reaction Status Date / Time tramadol Allergy Intermediate Itching Verified 06/21/18 14:39 Fish Containing Products Allergy Verified 06/21/18 14:39 History of Present Illness: this 33 years old male with alcohol and cocaine dependence,symptom,last detox [facility] 03/30/18 to 04/03/18 syncope seizure last 2012 nicotine dependence weight loss multiple admissions in detox but keep relapsing longest sobriety 2 and half year low back pain insomnia Exam Limitations: No Limitations - Ebola screening Have you traveled outside of the country in the last 21 days: No Have you had contact with anyone from an Ebola affected area: No Have you been sick,other than usual withdrawal symptoms: No Do you have a fever: No - Review of Systems Constitutional: Loss of Appetite, Malaise, Night Sweats, Changes in sleep, Weakness, Unintentional Wgt. Loss EENT: reports: Nose Congestion Respiratory: reports: No Symptoms reported Cardiac: reports: No Symptoms Reported GI: reports: Diarrhea, Nausea, Abdominal cramping : reports: No Symptoms Reported Musculoskeletal: reports: Back Pain, Muscle Pain Integumentary: reports: Dryness Neuro: reports: Tremors Endocrine: reports: No Symptoms Reported Hematology: reports: No Symptoms Reported Psychiatric: reports: No Sypmtoms Reported, Judgement Intact, Mood/Affect Appropiate, Orientated x3 Patient History - Patient Medical History Hx Anemia: No Hx Asthma: No Hx Chronic Obstructive Pulmonary Disease (COPD): No Hx Cancer: No Hx Cardiac Disorders: No Hx Congestive Heart Failure: No Hx Hypertension: Yes (Not on medication) Hx Hypercholesterolemia: No Hx Pacemaker: No HX Cerebrovascular Accident: No Hx Seizures: Yes (DUE TO DRUG USE ;Not on medication) Hx Dementia: No Hx Diabetes: No Hx Gastrointestinal Disorders: No Hx Liver Disease: No Hx Genitourinary Disorders: No Hx Sexually Transmitted Disorders: No (DENIES) Hx Renal Disease (ESRD): No Hx Thyroid Disease: No Hx Human Immunodeficiency Virus (HIV): No (NEGATIVE 2017) Hx Hepatitis C: No Hx Depression: Yes (Not on medication) Hx Suicide Attempt: No (DENIES) Hx Bipolar Disorder: No Hx Schizophrenia: No Other Medical History: no suicidal,no homicidal - Patient Surgical History Past Surgical History: Yes Hx Neurologic Surgery: No Hx Cataract Extraction: No Hx Cardiac Surgery: No Hx Lung Surgery: No Hx Breast Surgery: No Hx Breast Biopsy: No Hx Abdominal Surgery: No Hx Appendectomy: No Hx Cholecystectomy: No Hx Genitourinary Surgery: No Hx Orthopedic Surgery: Yes (LEFT ANKLE 2016) Anesthesia Reaction: No - PPD History Previous Implant?: Yes Documented Results: Negative w/proof Implanted On Prior [facility] Admission?: Yes Date: 04/01/18 Results: 0mm PPD to be Administered?: No - Smoking Cessation Smoking history: Current every day smoker Have you smoked in the past 12 months: Yes Aproximately how many cigarettes per day: 10 Cigars Per Day: 0 Hx Chewing Tobacco Use: No Initiated information on smoking cessation: Yes 'Breaking Loose' booklet given: 06/21/18 - Substance & Tx. History Hx Alcohol Use: Yes Hx Substance Use: Yes Substance Use Type: Alcohol, Cocaine Hx Substance Use Treatment: Yes ([facility] 03/30/18 to 04/03/18) - Substances Abused Alcohol Route: Oral Frequency: Daily Amount used: 2-3 pints vodka/ 6pk beer Age of first use: 18 Date of Last Use: 06/21/18 Cocaine Route: Inhalation Frequency: Daily Amount used: 1-2 grams Age of first use: 25 Date of Last Use: 06/19/18 Family Disease History - Family Disease History Family Disease History: Diabetes: Father (HTN), Other: Father Admission Physical Exam [facility] - Vital Signs Vital Signs: Vital Signs - 24 hr 06/21/18 13:15 Temperature 97.7 F Pulse Rate 88 Respiratory 20 Rate Blood Pressure 149/104 H - Physical General Appearance: Yes: Moderate Distress, Tremorous, Irritable, Sweating, Anxious HEENTM: Yes: Normal ENT Inspection, SHADIA, Pharynx Normal Respiratory: Yes: Lungs Clear, Normal Breath Sounds, No Respiratory Distress Neck: Yes: Within Normal Limits, Supple, Trachea in good position Breast: Yes: Within Normal Limits Cardiology: Yes: Within Normal Limits, Regular Rhythm, Regular Rate, S1, S2 Abdominal: Yes: Within Normal Limits, Normal Bowel Sounds, Non Tender, Flat, Soft Genitourinary: Yes: Within Normal Limits Back: Yes: Muscle Spasm Musculoskeletal: Yes: Back pain, Muscle Pain Extremities: Yes: Within Normal Limits, Normal Range of Motion, Tremors 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 NML intact, Fully Oriented, Alert, Motor Strength 5/5 Integumentary: Yes: Dry Lymphatic: Yes: Within Normal Limits - Diagnostic (1) Alcohol dependence with uncomplicated withdrawal Current Visit: No Status: Acute (2) Cocaine dependence Current Visit: No Status: Acute Qualifiers: Substance use status: uncomplicated Qualified Code(s): F14.20 - Cocaine dependence, uncomplicated (3) Nicotine dependence Current Visit: No Status: Acute Qualifiers: Nicotine product type: cigarettes Substance use status: in withdrawal Qualified Code(s): F17.213 - Nicotine dependence, cigarettes, with withdrawal (4) Weight loss Current Visit: No Status: Acute (5) History of fracture of left ankle Current Visit: No Status: Chronic (6) Seizure Current Visit: No Status: Chronic (7) HTN (hypertension) Current Visit: No Status: Suspected Qualifiers: Hypertension type: unspecified Qualified Code(s): I10 - Essential (primary ) hypertension (8) Insomnia secondary to depression with anxiety Current Visit: Yes Status: Acute Cleared for Admission [facility] - Detox or Rehab [facility] Level of Care: Medically Managed Detox Regimen/Protocol: Librium [facility] Breath Alcohol Content Breath Alcohol Content: 0.01 Urine Drug Screen - Results Drug Screen Negative: No Urine Drug Screen Results: JULIANO-Cocaine, BZO-Benzodiazepines, OXY-Oxycodone
[2018-06-21] MEDS ORDERED: LOPERAMIDE HCL 2 MG CAPSULE PO PRN (15:00)
[2018-06-21] MEDS ORDERED: ACETAMINOPHEN 325 MG TABLET (FP) PO PRN (15:00)
[2018-06-21] MEDS ORDERED: MAG HYDROX/AL HYDROX/SIMETH 30 ML UNIT-DOSE CUP PO PRN (15:00)
[2018-06-21] MEDS ORDERED: guaiFENesin/D-METHORPHAN HB 10 ML UNIT-DOSE CUPS PO PRN (15:00)
[2018-06-21] MEDS ORDERED: chlordiazePOXIDE HCL 25 MG CAPSULE PO PRN (15:00)
[2018-06-21] MEDS ORDERED: P-EPHED 60MG/TRIPROLIDI 2.5MG TABLET PO PRN (15:00)
[2018-06-21] MEDS ORDERED: MAGNESIUM CITRATE 300 ML BOTTLE PO PRN (15:00)
[2018-06-21] MEDS ORDERED: IBUPROFEN 400 MG TABLET (FP) PO PRN (15:00)
[2018-06-21] MEDS ORDERED: MENTHOL/PHENOL 1 EACH UD MM PRN (15:00)
[2018-06-21] MEDS ORDERED: MAGNESIUM HYDROX 2400MG/30ML ORAL SUSPENSION 30 ML CUP PO PRN (15:00)
[2018-06-21] MEDS ORDERED: CYCLOBENZAPRINE HCL 10 MG TABLET (FP) PO PRN (15:05)
--- NOTE | 2018-06-21 15:38 | CONSULT ---
[facility] Psychiatric Consult - Data Date of interview: 06/21/18 Admission source: [facility] Identifying data: This is a 33 years old male, single, father of four, living with roommate, with psychiatric hospitalization history, with alcohol and cocaine, cannabis dependence,reporting withdrawal symptoms and seeking detox. Substance Abuse History: Smoking history: Current every day smoker. Have you smoked in the past 12 months: Yes. Aproximately how many cigarettes per day: 10. Cigars Per Day: 0. Hx Chewing Tobacco Use: No. Initiated information on smoking cessation: Yes. 'Breaking Loose' booklet given: 06/21/18. - Substance & Tx. History. Hx Alcohol Use: Yes. Hx Substance Use: Yes. Substance Use Type : Alcohol, Cocaine. Hx Substance Use Treatment: Yes ([facility] 03/30/18 to 04/03/18) . - Substances Abused. Alcohol. Route: Oral. Frequency: Daily. Amount used: 2-3 pints vodka/ 6pk beer. Age of first use: 18. Date of Last Use: 06/21. Cocaine. Route: Inhalation. Frequency: Daily. Amount used: 1-2 grams. Age of first use: 25. Date of Last Use: 06/19/18 Medical History: Weight loss history, L.Ankle fracture, HTN, ambulates with cane , LBP, GERD Psychiatric History: Patient reports history of depression and anxiety, reports insomnia,reports taking prior to admission: Ambien 10mg po qhs. Flexetil 10mg po tid. Denies suicidal, hosmicidal ideations. Reports most recent psychiatric admission at [facility] on 2015 for safety. Physical/Sexual Abuse/Trauma History: Denies Additional Comment: Ambien 10mg po qhs. Flexetil 10mg po tid Mental Status Exam - Mental Status Exam Alert and Oriented to: Place, Person Cognitive Function: Fair Patient Appearance: Well Groomed Mood: Anxious Affect: Mood Congruent Patient Behavior: Cooperative Speech Pattern: Appropriate Voice Loudness: Normal Thought Process: Goal Oriented Thought Disorder: Being Controlled Hallucinations: Denies Suicidal Ideation: Denies Homicidal Ideation: Denies Insight/Judgement: Fair Sleep: Difficulty falling asleep Appetite: Fair Muscle strength/Tone: Mild Hypotonicity Gait/Station: Shuffling Additional Comments: Ambien 10mg po qhs. Flexetil 10mg po tid Psychiatric Findings - Problem List ([place] 1, 2,3) (1) Alcohol dependence with uncomplicated withdrawal Current Visit: No Status: Acute (2) Cannabis dependence, uncomplicated Current Visit: No Status: Acute (3) Cocaine dependence Current Visit: No Status: Acute Qualifiers: Substance use status: uncomplicated Qualified Code(s): F14.20 - Cocaine dependence, uncomplicated (4) Drug-induced mood disorder Current Visit: No Status: Acute (5) Use of cane as ambulatory aid Current Visit: No Status: Acute (6) Weight loss Current Visit: No Status: Acute (7) GERD (gastroesophageal reflux disease) Current Visit: No Status: Chronic Qualifiers: Esophagitis presence: esophagitis presence not specified Qualified Code(s) : K21.9 - Gastro-esophageal reflux disease without esophagitis (8) History of fracture of left ankle Current Visit: No Status: Chronic (9) Seizure Current Visit: No Status: Chronic (10) Anxiety Current Visit: No Status: Suspected (11) HTN (hypertension) Current Visit: No Status: Suspected Qualifiers: Hypertension type: unspecified Qualified Code(s): I10 - Essential (primary ) hypertension (12) Hx of seizure disorder Current Visit: No Status: Suspected - Initial Treatment Plan Initial Treatment Plan: Ambien 10mg po qhs. Flexetil 10mg po tid
[2018-06-21] MEDS ORDERED: cloNIDine HCL 0.1 MG TABLET PO ONE (15:45)
[2018-06-21] MEDS ORDERED: SUVOREXANT 10 MG TABLET PO PRN (16:38)
[2018-06-21] MEDS: chlordiazePOXIDE HCL 25 MG CAPSULE PO SCH ×2 (17:58→22:11)
[2018-06-21] MEDS: NICOTINE 21 MG/24 HOURS TOPICAL PATCH TD SCH (17:58)
[2018-06-21] MEDS: THIAMINE HCL 100 MG TABLET (FP) PO SCH (22:10)
[2018-06-21 23:35] LABS: URINE APPEARANCE CLEAR; URINE BILIRUBIN NEGATIVE (<2.0 mg/dL); URINE COLOR LTYELLOW; URINE GLUCOSE (UA) NEGATIVE (NEGATIVE); URINE KETONE NEGATIVE (NEGATIVE); URINE LEUK ESTERASE NEGATIVE (NEGATIVE); URINE NITRITE NEGATIVE (NEGATIVE); URINE PROTEIN NEGATIVE (NEGATIVE); URINE UROBILINOGEN NEGATIVE mg/dL (0.2-1.0)
[2018-06-22] MEDS: chlordiazePOXIDE HCL 25 MG CAPSULE PO SCH ×4 (05:34→22:30)
[2018-06-22 10:17] LABS: HEMATOCRIT 44.2 % (35.4-49); HEMOGLOBIN 15.2 GM/dL (11.7-16.9); MCH 32.2 pg (25.7-33.7); MCHC 34.4 g/dl (32.0-35.9); MEAN CELL VOLUME 93.6 fl (80-96); MEAN PLT VOLUME 8.1 fl (7.5-11.1); PLATELET COUNT 249 K/MM3 (134-434); RBC 4.73 M/mm3 (4.00-5.60); RDW 13.4 % (11.9-15.9); WHITE BLOOD COUNT 6.5 K/mm3 (4.0-10.0)
[2018-06-22 10:58] LABS: ALBUMIN 3.8 g/dl (3.4-5.0); ALK PHOS 82 U/L (45-117); ANION GAP 8 MMOL/L (8-16); BILIRUBIN,TOTAL 0.2 mg/dL (0.2-1); BLOOD UREA NITROGEN 8 mg/dL (7-18); CALCIUM 8.7 mg/dL (8.5-10.1); CHLORIDE 102 mmol/L (98-107); CO2 27 mmol/L (21-32); CREATININE 0.7 mg/dL (0.55-1.3); GLUCOSE,RANDOM 80 mg/dL (74-106); SGOT/AST 21 U/L (15-37); SGPT/ALT 31 U/L (13-61); SODIUM 137 mmol/L (136-145); TOT PROT 7.2 g/dl (6.4-8.2)
[2018-06-22] MEDS: PRENATAL VITAMINS W/ FOLIC ACID TABLET (FP) PO SCH (11:07)
[2018-06-22] MEDS: NICOTINE 21 MG/24 HOURS TOPICAL PATCH TD SCH (11:08)
--- NOTE | 2018-06-22 11:47 | PN ---
[facility] CIWA - CIWA Score Nausea/Vomitin-No Nausea/No Vomiting Muscle Tremors: 3 Anxiety: 3 Agitation: 3 Paroxysmal Sweats: 3 Orientation: 0-Oriented Tacttile Disturbances: 0-None Auditory Disturbances: 0-None Visual Disturbances: 0-None Headache: 1-Very Mild CIWA-Ar Total Score: 13 [facility] Progress Note (SOAP) Subjective: sweats shakes headache interrupted sleep body aches Objective: 06/22/18 11:46 Vital Signs Temperature 97.0 F L 06/22/18 09:30 Pulse Rate 95 H 06/22/18 09:30 Respiratory Rate 18 06/22/18 09:30 Blood Pressure 134/83 06/22/18 09:30 O2 Sat by Pulse Oximetry (%) Laboratory Tests 06/21/18 06/22/18 06/22/18 23:10 07:00 07:00 WBC 6.5 RBC 4.73 Hgb 15.2 Hct 44.2 MCV 93.6 MCH 32.2 MCHC 34.4 RDW 13.4 Plt Count 249 MPV 8.1 Sodium 137 Potassium 4.0 Chloride 102 Carbon Dioxide 27 Anion Gap 8 BUN 8 Creatinine 0.7 Creat Clearance w eGFR > 60 Random Glucose 80 Calcium 8.7 Total Bilirubin 0.2 AST 21 ALT 31 Alkaline Phosphatase 82 Total Protein 7.2 Albumin 3.8 Urine Color Ltyellow Urine Appearance Clear Urine pH 6.0 Ur Specific [place] 1.020 Urine Protein Negative Urine Glucose (UA) Negative Urine Ketones Negative Urine Blood Negative Urine Nitrite Negative Urine Bilirubin Negative Urine Urobilinogen Negative Ur Leukocyte Esterase Negative RPR Titer 06/22/18 07:00 WBC RBC Hgb Hct MCV MCH MCHC RDW Plt Count MPV Sodium Potassium Chloride Carbon Dioxide Anion Gap BUN Creatinine Creat Clearance w eGFR Random Glucose Calcium Total Bilirubin AST ALT Alkaline Phosphatase Total Protein Albumin Urine Color Urine Appearance Urine pH Ur Specific [place] Urine Protein Urine Glucose (UA) Urine Ketones Urine Blood Urine Nitrite Urine Bilirubin Urine Urobilinogen Ur Leukocyte Esterase RPR Titer Nonreactive aaox3 ambulating no acute distress Assessment: 06/22/18 11:46 withdrawal sx Plan: continue detox increase fluids
[2018-06-22] MEDS: CYCLOBENZAPRINE HCL 10 MG TABLET (FP) PO PRN (14:31)
--- NOTE | 2018-06-22 14:51 | EKG ---
Test Reason : Blood Pressure : / mmHG Vent. Rate : 082 BPM Atrial Rate : 082 BPM P-R Int : 160 ms QRS Dur : 090 ms QT Int : 356 ms P-R-T Axes : 076 063 059 degrees QTc Int : 415 ms NORMAL SINUS RHYTHM POSSIBLE LEFT ATRIAL ENLARGEMENT WHEN COMPARED WITH ECG OF 30-MAR-2018 19:26, NO SIGNIFICANT CHANGE WAS FOUND Confirmed by TERRENCE FIERRO MD ([id number]) on 06/22/2018 2:50:53 PM Referred By: Confirmed By:TERRENCE FIERRO MD
[2018-06-22] MEDS: THIAMINE HCL 100 MG TABLET (FP) PO SCH (22:30)
[2018-06-22] MEDS: MELATONIN 5 MG TABLETS PO PRN (22:30)
[2018-06-23] MEDS: chlordiazePOXIDE HCL 25 MG CAPSULE PO SCH ×2 (05:19→10:09)
[2018-06-23] MEDS: PRENATAL VITAMINS W/ FOLIC ACID TABLET (FP) PO SCH (10:09)
[2018-06-23] MEDS: hydrOXYzine PAMOATE 50 MG CAPSULE (FP) PO PRN ×2 (10:10→17:17)
[2018-06-23] MEDS: NICOTINE 21 MG/24 HOURS TOPICAL PATCH TD SCH (10:10)
--- NOTE | 2018-06-23 12:40 | PN ---
S CIWA - CIWA Score Nausea/Vomitin-No Nausea/No Vomiting Muscle Tremors: 2 Anxiety: 2 Agitation: 2 Paroxysmal Sweats: No Perspiration Orientation: 0-Oriented Tacttile Disturbances: 0-None Auditory Disturbances: 0-None Visual Disturbances: 0-None Headache: 2-Mild CIWA-Ar Total Score: 8 [facility] Progress Note (SOAP) Subjective: PATIENT C/O HEADACHE, FEELING ANXIOUS AND SHAKES. Objective: 06/23/18 12:39 Vital Signs Temperature 97.5 F L 06/23/18 09:54 Pulse Rate 16 L 06/23/18 09:54 Respiratory Rate 78 H 06/23/18 09:54 Blood Pressure 130/74 06/23/18 09:54 O2 Sat by Pulse Oximetry (%) Laboratory Tests 06/21/18 06/22/18 06/22/18 23:10 07:00 07:00 WBC 6.5 RBC 4.73 Hgb 15.2 Hct 44.2 MCV 93.6 MCH 32.2 MCHC 34.4 RDW 13.4 Plt Count 249 MPV 8.1 Sodium 137 Potassium 4.0 Chloride 102 Carbon Dioxide 27 Anion Gap 8 BUN 8 Creatinine 0.7 Creat Clearance w eGFR > 60 Random Glucose 80 Calcium 8.7 Total Bilirubin 0.2 AST 21 ALT 31 Alkaline Phosphatase 82 Total Protein 7.2 Albumin 3.8 Urine Color Ltyellow Urine Appearance Clear Urine pH 6.0 Ur Specific [place] 1.020 Urine Protein Negative Urine Glucose (UA) Negative Urine Ketones Negative Urine Blood Negative Urine Nitrite Negative Urine Bilirubin Negative Urine Urobilinogen Negative Ur Leukocyte Esterase Negative RPR Titer 06/22/18 07:00 WBC RBC Hgb Hct MCV MCH MCHC RDW Plt Count MPV Sodium Potassium Chloride Carbon Dioxide Anion Gap BUN Creatinine Creat Clearance w eGFR Random Glucose Calcium Total Bilirubin AST ALT Alkaline Phosphatase Total Protein Albumin Urine Color Urine Appearance Urine pH Ur Specific [place] Urine Protein Urine Glucose (UA) Urine Ketones Urine Blood Urine Nitrite Urine Bilirubin Urine Urobilinogen Ur Leukocyte Esterase RPR Titer Nonreactive PE: ALERT AND ORIENTED X 3 SKIN WARM AND DRY CAR S1S2 RESP CTA BL EXT +MILD TREMORS, FULL ROM Assessment: 06/23/18 12:40 WITHDRAWAL SX Plan: CONTINUE DETOX ENCOURAGE ORAL FLUIDS CONTINUE TO MONITOR CLINICALLY
[2018-06-23] MEDS: chlordiazePOXIDE 5 MG CAPSULE PO SCH ×2 (17:15→22:04)
[2018-06-23] MEDS: THIAMINE HCL 100 MG TABLET (FP) PO SCH (22:04)
[2018-06-23] MEDS: CYCLOBENZAPRINE HCL 10 MG TABLET (FP) PO PRN (22:04)
[2018-06-24] MEDS: chlordiazePOXIDE 5 MG CAPSULE PO SCH ×2 (05:36→10:08)
[2018-06-24] MEDS: hydrOXYzine PAMOATE 50 MG CAPSULE (FP) PO PRN ×3 (08:50→22:43)
[2018-06-24] MEDS: PRENATAL VITAMINS W/ FOLIC ACID TABLET (FP) PO SCH (10:08)
[2018-06-24] MEDS: NICOTINE 21 MG/24 HOURS TOPICAL PATCH TD SCH (10:08)
--- NOTE | 2018-06-24 13:12 | PN ---
[facility] Progress Note (SOAP) Subjective: feeling better no tremor less sweat no gi distress social with peers in day room Objective: 06/24/18 13:11 Vital Signs Temperature 97.5 F L 06/24/18 09:40 Pulse Rate 89 06/24/18 09:40 Respiratory Rate 16 06/24/18 09:40 Blood Pressure 118/66 06/24/18 09:40 O2 Sat by Pulse Oximetry (%) Laboratory Last Values WBC 6.5 K/mm3 (4.0-10.0) 06/22/18 07:00 RBC 4.73 M/mm3 (4.00-5.60) 06/22/18 07:00 Hgb 15.2 GM/dL (11.7-16.9) 06/22/18 07:00 Hct 44.2 % (35.4-49) 06/22/18 07:00 MCV 93.6 fl (80-96) 06/22/18 07:00 MCH 32.2 pg (25.7-33.7) 06/22/18 07:00 MCHC 34.4 g/dl (32.0-35.9) 06/22/18 07:00 RDW 13.4 % (11.9-15.9) 06/22/18 07:00 Plt Count 249 K/MM3 (134-434) 06/22/18 07:00 MPV 8.1 fl (7.5-11.1) 06/22/18 07:00 Sodium 137 mmol/L (136-145) 06/22/18 07:00 Potassium 4.0 mmol/L (3.5-5.1) 06/22/18 07:00 Chloride 102 mmol/L (98-107) 06/22/18 07:00 Carbon Dioxide 27 mmol/L (21-32) 06/22/18 07:00 Anion Gap 8 MMOL/L (8-16) 06/22/18 07:00 BUN 8 mg/dL (7-18) 06/22/18 07:00 Creatinine 0.7 mg/dL (0.55-1.3) 06/22/18 07:00 Creat Clearance w eGFR > 60 (>60) 06/22/18 07:00 Random Glucose 80 mg/dL (74-106) 06/22/18 07:00 Calcium 8.7 mg/dL (8.5-10.1) 06/22/18 07:00 Total Bilirubin 0.2 mg/dL (0.2-1) 06/22/18 07:00 AST 21 U/L (15-37) 06/22/18 07:00 ALT 31 U/L (13-61) 06/22/18 07:00 Alkaline Phosphatase 82 U/L (45-117) 06/22/18 07:00 Total Protein 7.2 g/dl (6.4-8.2) 06/22/18 07:00 Albumin 3.8 g/dl (3.4-5.0) 06/22/18 07:00 Urine Color Ltyellow 06/21/18 23:10 Urine Appearance Clear 06/21/18 23:10 Urine pH 6.0 (5.0-8.0) 06/21/18 23:10 Ur Specific [place] 1.020 (1.010-1.035) 06/21/18 23:10 Urine Protein Negative (NEGATIVE) 06/21/18 23:10 Urine Glucose (UA) Negative (NEGATIVE) 06/21/18 23:10 Urine Ketones Negative (NEGATIVE) 06/21/18 23:10 Urine Blood Negative (NEGATIVE) 06/21/18 23:10 Urine Nitrite Negative (NEGATIVE) 06/21/18 23:10 Urine Bilirubin Negative (<2.0 mg/dL) 06/21/18 23:10 Urine Urobilinogen Negative mg/dL (0.2-1.0) 06/21/18 23:10 Ur Leukocyte Esterase Negative (NEGATIVE) 06/21/18 23:10 RPR Titer Nonreactive (NONREACTIVE) 06/22/18 07:00 lab noted Assessment: 06/24/18 13:11 mild withdrawal sx Plan: medically supervised detox
[2018-06-24] MEDS: chlordiazePOXIDE HCL 10 MG CAPSULE PO SCH ×2 (17:30→22:44)
[2018-06-24] MEDS: THIAMINE HCL 100 MG TABLET (FP) PO SCH (22:43)
[2018-06-24] MEDS: CYCLOBENZAPRINE HCL 10 MG TABLET (FP) PO PRN (22:43)
[2018-06-24] MEDS: MELATONIN 5 MG TABLETS PO PRN (22:44)
[2018-06-25] MEDS: chlordiazePOXIDE HCL 10 MG CAPSULE PO SCH (05:10)
[2018-06-25 07:30] VITALS: BP 113/57; PULSE 67; TEMP 96.6
--- NOTE | 2018-06-25 08:36 | DS ---
[facility] Detox Discharge Summary Admission Date: 06/21/18 Discharge Date: 06/25/18 - History Present History: Alcohol Dependence, Cannabis Dependence, Cocaine Dependence - Physical Exam Results Vital Signs: Vital Signs Temperature 96.6 F L 06/25/18 07:29 Pulse Rate 67 06/25/18 07:29 Respiratory Rate 18 06/25/18 07:29 Blood Pressure 113/57 L 06/25/18 07:29 O2 Sat by Pulse Oximetry (%) - Treatment Hospital Course: Detox Protocol Followed, Detoxed Safely, Responded well, Discharged Condition Good, Rehab Referral Accepted - Medication Discharge Medications: Ambulatory Orders Cyclobenzaprine HCl [Flexeril 10 mg] 10 mg PO BID PRN 02/07/18 Cyclobenzaprine HCl [Flexeril -] 10 mg PO TID PRN #60 tablet 06/21/18 Zolpidem Tartrate [Ambien] 5 mg PO HS 06/21/18 - Diagnosis (1) Alcohol dependence with uncomplicated withdrawal Current Visit: Yes Status: Chronic (2) Insomnia secondary to depression with anxiety Current Visit: Yes Status: Acute (3) Cannabis dependence, uncomplicated Current Visit: Yes Status: Chronic (4) Cocaine dependence Current Visit: Yes Status: Chronic Qualifiers: Substance use status: uncomplicated Qualified Code(s): F14.20 - Cocaine dependence, uncomplicated (5) Drug-induced mood disorder Current Visit: No Status: Acute (6) Insomnia Current Visit: No Status: Acute Qualifiers: Insomnia type: unspecified Qualified Code(s): G47.00 - Insomnia, unspecified (7) Nicotine dependence Current Visit: Yes Status: Acute Qualifiers: Nicotine product type: cigarettes Substance use status: uncomplicated Qualified Code(s): F17.210 - Nicotine dependence, cigarettes, uncomplicated (8) Use of cane as ambulatory aid Current Visit: No Status: Acute (9) Weight loss Current Visit: No Status: Acute (10) Back pain Current Visit: No Status: Chronic Qualifiers: Back pain location: back pain in unspecified location Chronicity: unspecified Back pain laterality: unspecified Qualified Code(s): M54.9 - Dorsalgia, unspecified (11) Depression Current Visit: No Status: Chronic (12) GERD (gastroesophageal reflux disease) Current Visit: No Status: Chronic Qualifiers: Esophagitis presence: esophagitis presence not specified Qualified Code(s) : K21.9 - Gastro-esophageal reflux disease without esophagitis (13) History of fracture of left ankle Current Visit: No Status: Chronic (14) Left leg weakness Current Visit: No Status: Chronic (15) Seizure Current Visit: No Status: Chronic (16) Anxiety Current Visit: No Status: Suspected (17) HTN (hypertension) Current Visit: No Status: Suspected Qualifiers: Hypertension type: unspecified Qualified Code(s): I10 - Essential (primary ) hypertension (18) Hx of seizure disorder Current Visit: No Status: Suspected - AMA Did Patient Leave Against Medical Advice: No ([facility] outpatient)
== END 2018-06-25 08:59 | disposition home or self-care (01) | DRG 774 ==
LOC: YASAS 11:57 → Y6N 15:17
PROC: HZ2ZZZZ Detoxification Services for Substance Abuse Treatment (ICD-10-PCS; principal; 2018-06-21)
DX: F10.230 Alcohol dependence with withdrawal, uncomplicated (principal); F14.20 Cocaine dependence, uncomplicated; F12.20 Cannabis dependence, uncomplicated; F17.210 Nicotine dependence, cigarettes, uncomplicated; F51.05 Insomnia due to other mental disorder; F32.9 Major depressive disorder, single episode, unspecified; F41.9 Anxiety disorder, unspecified; F19.24 Other psychoactive substance dependence with psychoactive substance-induced mood disorder; I10 Essential (primary) hypertension; K21.9 Gastro-esophageal reflux disease without esophagitis; M54.5 Low back pain; R29.898 Other symptoms and signs involving the musculoskeletal system; R63.4 Abnormal weight loss; Z68.25 Body mass index [BMI] 25.0-25.9, adult; R26.89 Other abnormalities of gait and mobility; Z99.89 Dependence on other enabling machines and devices; Z86.69 Personal history of other diseases of the nervous system and sense organs; Z87.81 Personal history of (healed) traumatic fracture
CPT/HCPCS: 36415; 80053; 81003; 85027; 86593; 93005; 93010; J0735

== ENCOUNTER 2018-10-10 13:47 | Inpatient (IN) | payer OTHER ==
[2018-10-10 17:09] VITALS: BMI 28.1
[2018-10-10] MEDS ORDERED: NICOTINE POLACRILEX 2 MG GUM BC PRN (18:34)
[2018-10-10] MEDS ORDERED: MAGNESIUM CITRATE 300 ML BOTTLE PO PRN (18:34)
[2018-10-10] MEDS ORDERED: guaiFENesin/D-METHORPHAN HB 10 ML UNIT-DOSE CUPS PO PRN (18:34)
[2018-10-10] MEDS ORDERED: MAG HYDROX/AL HYDROX/SIMETH 30 ML UNIT-DOSE CUP PO PRN (18:34)
[2018-10-10] MEDS ORDERED: IBUPROFEN 400 MG TABLET (FP) PO PRN (18:34)
[2018-10-10] MEDS ORDERED: MAGNESIUM HYDROX 2400MG/30ML ORAL SUSPENSION 30 ML CUP PO PRN (18:34)
[2018-10-10] MEDS ORDERED: ACETAMINOPHEN 325 MG TABLET (FP) PO PRN (18:34)
[2018-10-10] MEDS ORDERED: hydrOXYzine PAMOATE 25 MG CAPSULE (FP) PO PRN (18:34)
[2018-10-10] MEDS ORDERED: LOPERAMIDE HCL 2 MG CAPSULE PO PRN (18:34)
[2018-10-10] MEDS ORDERED: P-EPHED 60MG/TRIPROLIDI 2.5MG TABLET PO PRN (18:34)
[2018-10-10] MEDS ORDERED: MENTHOL/PHENOL 1 EACH UD MM PRN (18:34)
--- NOTE | 2018-10-10 18:34 | HP ---
CIWA Score Nausea/Vomitin Muscle Tremors: 2 Anxiety: 3 Agitation: 1-Slight > Activity Paroxysmal Sweats: 2 Orientation: 0-Oriented Tacttile Disturbances: 2-Mild Itch/Numbness/Burn Auditory Disturbances: 0-None Visual Disturbances: 0-None Headache: 0-None Present CIWA-Ar Total Score: 12 - Admission Criteria OASAS Guidelines: Admission for Medically Managed Detox: Requires at least one of the followin. CIWA greater than 12 2. Seizures within the past 24 hours 3. Delirium tremens within the past 24 hours 4. Hallucinations within the past 24 hours 5. Acute intervention needed for co occurring medical disorder 6. Acute intervention needed for co occurring psychiatric disorder 7. Severe withdrawal that cannot be handled at a lower level of care (continued vomiting, continued diarrhea, abnormal vital signs) requiring intravenous medication and/or fluids 8. Patient presents the following: CIWA greater than 12 Admission Criteria Met: Admission criteria met Admission ROS S - [facility] Chief Complaint: " I'm drinking to much" Allergies/Adverse Reactions: Allergies Allergy/AdvReac Type Severity Reaction Status Date / Time Fish Containing Products Allergy Severe Difficulty Verified 10/10/18 16:51 Breathing tramadol Allergy Severe Itching Verified 10/10/18 16:51 History of Present Illness: 33 yo male with hx of nicotine, alcohol and cocaine dependence is here seeking detox, reports hx of frequent relapse and admissions. Last detox [facility] June 2018. Reports hx of seizure with last episode last 2012. Longest sobriety 2.5 years. PMHX: chronic low back pain, insomnia, anxiety and depression. Denies suicidal / homicidal ideation. Exam Limitations: No Limitations - Ebola screening Have you traveled outside of the country in the last 21 days: No Have you had contact with anyone from an Ebola affected area: No Have you been sick,other than usual withdrawal symptoms: No Do you have a fever: No - Review of Systems Constitutional: Loss of Appetite, Weakness, Unintentional Wgt. Loss (15 lb in past 30 days) EENT: reports: Other (runny nose) Respiratory: reports: No Symptoms reported Cardiac: reports: No Symptoms Reported GI: reports: Diarrhea, Nausea, Poor Appetite, Poor Fluid Intake : reports: No Symptoms Reported Musculoskeletal: reports: Back Pain Integumentary: reports: No Symptoms Reported Neuro: reports: Numbness, Weakness Endocrine: reports: Increased Thirst Hematology: reports: No Symptoms Reported Psychiatric: reports: Orientated x3, Anxious, Depressed Other Systems: Reviewed and Negative Patient History - Patient Medical History Hx Anemia: No Hx Asthma: No Hx Chronic Obstructive Pulmonary Disease (COPD): No Hx Cancer: No Hx Cardiac Disorders: No Hx Congestive Heart Failure: No Hx Hypertension: No Hx Hypercholesterolemia: No Hx Pacemaker: No HX Cerebrovascular Accident: No Hx Seizures: Yes (alcohol related-last episode was in 2014) Hx Dementia: No Hx Diabetes: No Hx Gastrointestinal Disorders: No Hx Liver Disease: No Hx Genitourinary Disorders: No Hx Sexually Transmitted Disorders: No Hx Renal Disease (ESRD): No Hx Thyroid Disease: No Hx Human Immunodeficiency Virus (HIV): No (NEGATIVE 2017) Hx Hepatitis C: No Hx Depression: Yes Hx Suicide Attempt: No Hx Bipolar Disorder: No Hx Schizophrenia: No - Patient Surgical History Past Surgical History: Yes Hx Neurologic Surgery: No Hx Cataract Extraction: No Hx Cardiac Surgery: No Hx Lung Surgery: No Hx Breast Surgery: No Hx Breast Biopsy: No Hx Abdominal Surgery: No Hx Appendectomy: No Hx Cholecystectomy: No Hx Genitourinary Surgery: No Hx Orthopedic Surgery: Yes (fx, left ankle in 2016) Anesthesia Reaction: No - PPD History Previous Implant?: Yes Documented Results: Negative w/proof Implanted On Prior [facility] Admission?: Yes Date: 04/01/18 Results: 0 mm PPD to be Administered?: No - Smoking Cessation Smoking history: Current every day smoker Have you smoked in the past 12 months: Yes Aproximately how many cigarettes per day: 20 Cigars Per Day: 0 Hx Chewing Tobacco Use: No Initiated information on smoking cessation: Yes 'Breaking Loose' booklet given: 10/10/18 - Substance & Tx. History Hx Alcohol Use: Yes Substance Use Type: Alcohol, Cocaine Hx Substance Use Treatment: Yes - Substances Abused Cocaine Route: Inhalation Frequency: Daily Amount used: $100 Age of first use: 22 Date of Last Use: 10/10/18 Alcohol-vodka/beer Route: Oral Frequency: Daily Amount used: 1 1/2 liters/1-2 6pks. Age of first use: 18 Date of Last Use: 10/10/18 Family Disease History - Family Disease History Family Disease History: Diabetes: Father (HTN), Other: Father Admission Physical Exam [facility] - Vital Signs Vital Signs: Vital Signs - 24 hr 10/10/18 16:56 Temperature 97.7 F Pulse Rate 95 H Respiratory 18 Rate Blood Pressure 150/86 - Physical General Appearance: Yes: Nourished, Disheveled, Sweating, Anxious HEENTM: Yes: Hearing grossly Normal, Normal ENT Inspection, Normocephalic, Normal Voice, SHADIA, Pharynx Normal, Tm's normal, Rhinorrhea Respiratory: Yes: Chest Non-Tender, Lungs Clear, Normal Breath Sounds, No Respiratory Distress, No Accessory Muscle Use Neck: Yes: Within Normal Limits Breast: Yes: Breast Exam Deferred Cardiology: Yes: Regular Rhythm, Regular Rate Abdominal: Yes: Normal Bowel Sounds, Non Tender, Flat, Soft Genitourinary: Yes: Within Normal Limits Back: Yes: Normal Inspection Musculoskeletal: Yes: full range of Motion, Gait Steady, Pelvis Stable, Back pain Extremities: Yes: Normal Capillary Refill, Normal Inspection, Normal Range of Motion, Non-Tender Neurological: Yes: 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 NML intact, Fully Oriented, Alert, Motor Strength 5/5, Depressed Affect Integumentary: Yes: Normal Color, Warm, Moist Lymphatic: Yes: Within Normal Limits - Diagnostic (1) Elevated blood pressure reading Current Visit: Yes Status: Acute (2) Nicotine dependence Current Visit: Yes Status: Acute Qualifiers: Nicotine product type: cigarettes Substance use status: uncomplicated Qualified Code(s): F17.210 - Nicotine dependence, cigarettes, uncomplicated (3) Weight loss Current Visit: Yes Status: Acute (4) Alcohol dependence with uncomplicated withdrawal Current Visit: Yes Status: Chronic (5) Back pain Current Visit: Yes Status: Chronic Qualifiers: Back pain location: back pain in unspecified location Chronicity: unspecified Back pain laterality: unspecified Qualified Code(s): M54.9 - Dorsalgia, unspecified (6) Cocaine dependence Current Visit: Yes Status: Chronic Qualifiers: Substance use status: uncomplicated Qualified Code(s): F14.20 - Cocaine dependence, uncomplicated Cleared for Admission S - Detox or Rehab [facility] Level of Care: Medically Managed Detox Regimen/Protocol: Librium [facility] Breath Alcohol Content Breath Alcohol Content: 0.137 Urine Drug Screen - Results Drug Screen Negative: No Urine Drug Screen Results: JULIANO-Cocaine Inpatient Rehab Admission - Rehab Decision to Admit Inpatient rehab admission?: No
[2018-10-10] MEDS ORDERED: cloNIDine HCL 0.1 MG TABLET PO ONE (18:45)
[2018-10-10] MEDS: CYCLOBENZAPRINE HCL 10 MG TABLET (FP) PO PRN (19:22)
[2018-10-10] MEDS: chlordiazePOXIDE HCL 25 MG CAPSULE PO PRN (19:22)
[2018-10-10] MEDS ORDERED: MELATONIN 5 MG TABLETS PO PRN (22:00)
[2018-10-10] MEDS: chlordiazePOXIDE HCL 25 MG CAPSULE PO SCH (22:47)
[2018-10-10] MEDS: THIAMINE HCL 100 MG TABLET (FP) PO SCH (22:47)
[2018-10-10 23:25] LABS: URINE APPEARANCE CLEAR; URINE BILIRUBIN NEGATIVE (<2.0 mg/dL); URINE COLOR YELLOW; URINE GLUCOSE (UA) NEGATIVE (NEGATIVE); URINE KETONE TRACE (NEGATIVE); URINE LEUK ESTERASE NEGATIVE (NEGATIVE); URINE NITRITE NEGATIVE (NEGATIVE); URINE PROTEIN NEGATIVE (NEGATIVE)
[2018-10-11] MEDS: chlordiazePOXIDE HCL 25 MG CAPSULE PO PRN (03:31)
[2018-10-11] MEDS: chlordiazePOXIDE HCL 25 MG CAPSULE PO SCH ×4 (05:14→22:26)
--- NOTE | 2018-10-11 08:20 | CONSULT ---
[facility] Psychiatric Consult - Data Date of interview: 10/11/18 Admission source: [facility] Identifying data: 33 yo male with hx of nicotine, alcohol and cocaine dependence is here seeking detox, reports hx of frequent relapse and admissions. Last detox [facility] June 2018. Reports hx of seizure with last episode last 2012. Longest sobriety 2.5 years. PMHX: chronic low back pain, insomnia, anxiety and depression. Denies suicidal / homicidal ideation. Substance Abuse History: Smoking history: Current every day smoker. Have you smoked in the past 12 months: Yes. Aproximately how many cigarettes per day: 20. Cigars Per Day: 0. Hx Chewing Tobacco Use: No. Initiated information on smoking cessation: Yes. 'Breaking Loose' booklet given: 10/10/18. - Substance & Tx. History. Hx Alcohol Use: Yes. Substance Use Type: Alcohol, Cocaine. Hx Substance Use Treatment: Yes. - Substances Abused. Cocaine. Route: Inhalation. Frequency: Daily. Amount used: $100. Age of first use: 22. Date of Last Use: 10/10/18. Alcohol-vodka/beer. Route: Oral. Frequency: Daily. Amount used: 1 1/2 liters/1-2 6pks. Age of first use: 18. Date of Last Use: 10/10/18
[2018-10-11] MEDS ORDERED: CYCLOBENZAPRINE HCL 10 MG TABLET (FP) PO STA (09:15)
[2018-10-11] MEDS ORDERED: SUVOREXANT 10 MG TABLET PO PRN (09:15)
--- NOTE | 2018-10-11 09:41 | PN ---
S CIWA - CIWA Score Nausea/Vomitin-No Nausea/No Vomiting Muscle Tremors: 2 Anxiety: 3 Agitation: 2 Paroxysmal Sweats: 1-Minimal Palms Moist Orientation: 1-Uncertain about Date Tacttile Disturbances: 0-None Auditory Disturbances: 0-None Visual Disturbances: 0-None Headache: 0-None Present CIWA-Ar Total Score: 9 [facility] Progress Note (SOAP) Subjective: tremor sweating otherwise feeling ok social with peers on hallway Objective: 10/11/18 09:40 Vital Signs Temperature 96.7 F L 10/11/18 09:11 Pulse Rate 74 10/11/18 09:11 Respiratory Rate 18 10/11/18 09:11 Blood Pressure 122/79 10/11/18 09:11 O2 Sat by Pulse Oximetry (%) Laboratory Last Values Urine Color Yellow 10/10/18 21:00 Urine Appearance Clear 10/10/18 21:00 Urine pH 5.0 (5.0-8.0) 10/10/18 21:00 Ur Specific [place] 1.017 (1.010-1.035) 10/10/18 21:00 Urine Protein Negative (NEGATIVE) 10/10/18 21:00 Urine Glucose (UA) Negative (NEGATIVE) 10/10/18 21:00 Urine Ketones Trace (NEGATIVE) H 10/10/18 21:00 Urine Blood Negative (NEGATIVE) 10/10/18 21:00 Urine Nitrite Negative (NEGATIVE) 10/10/18 21:00 Urine Bilirubin Negative (<2.0 mg/dL) 10/10/18 21:00 Urine Urobilinogen 2.0 mg/dL (0.2-1.0) 10/10/18 21:00 Ur Leukocyte Esterase Negative (NEGATIVE) 10/10/18 21:00 lab noted Assessment: 10/11/18 09:41 alcohol withdrawal sx Plan: continue detox
[2018-10-11] MEDS ORDERED: NICOTINE 14 MG/24 HOURS TOPICAL PATCH TD SCH (10:00)
[2018-10-11] MEDS ORDERED: PRENATAL VITAMINS W/ FOLIC ACID TABLET (FP) PO SCH (10:00)
[2018-10-11] MEDS: CYCLOBENZAPRINE HCL 10 MG TABLET (FP) PO PRN ×2 (10:32→22:26)
[2018-10-11 10:37] LABS: ALBUMIN 3.9 g/dl (3.4-5.0); ALK PHOS 116 U/L (45-117); ANION GAP 6 MMOL/L (8-16); BILIRUBIN,TOTAL 0.7 mg/dL (0.2-1); BLOOD UREA NITROGEN 8 mg/dL (7-18); CALCIUM 8.8 mg/dL (8.5-10.1); CHLORIDE 103 mmol/L (98-107); CO2 29 mmol/L (21-32); CREATININE 0.9 mg/dL (0.55-1.3); GLUCOSE,RANDOM 77 mg/dL (74-106); POTASSIUM 4.1 mmol/L (3.5-5.1); SGOT/AST 30 U/L (15-37); SGPT/ALT 33 U/L (13-61); SODIUM 137 mmol/L (136-145); TOT PROT 7.2 g/dl (6.4-8.2)
[2018-10-11 10:38] LABS: HEMATOCRIT 43.1 % (35.4-49); MCH 32.4 pg (25.7-33.7); MCHC 34.9 g/dl (32.0-35.9); PLATELET COUNT 268 K/MM3 (134-434); RBC 4.64 M/mm3 (4.00-5.60); RDW 13.6 % (11.9-15.9)
[2018-10-11] MEDS: THIAMINE HCL 100 MG TABLET (FP) PO SCH (22:26)
[2018-10-12] MEDS: chlordiazePOXIDE HCL 25 MG CAPSULE PO SCH (05:38)
[2018-10-12 09:50] VITALS: BP 141/86; PULSE 92; TEMP 97.1
--- NOTE | 2018-10-12 15:06 | PN ---
S CIWA - CIWA Score Nausea/Vomitin-No Nausea/No Vomiting Muscle Tremors: None Anxiety: 4-Mod. Anxious/Guarded Agitation: 2 Paroxysmal Sweats: 3 Orientation: 0-Oriented Tacttile Disturbances: 2-Mild Itch/Numbness/Burn Auditory Disturbances: 0-None Visual Disturbances: 0-None Headache: 0-None Present CIWA-Ar Total Score: 11 BHS Progress Note (SOAP) Subjective: Sweating, Anxious. Objective: PATIENT A & O X 3, OBSERVED AMBULATING ON UNIT. IN NO ACUTE DISTRESS. 10/12/18 15:04 Vital Signs Temperature 97.1 F L 10/12/18 09:16 Pulse Rate 92 H 10/12/18 09:16 Respiratory Rate 20 10/12/18 09:16 Blood Pressure 141/86 10/12/18 09:16 O2 Sat by Pulse Oximetry (%) Laboratory Tests 10/10/18 10/11/18 10/11/18 21:00 07:00 07:00 WBC 7.0 RBC 4.64 Hgb 15.0 Hct 43.1 MCV 93.0 MCH 32.4 MCHC 34.9 RDW 13.6 Plt Count 268 MPV 8.0 Sodium Potassium Chloride Carbon Dioxide Anion Gap BUN Creatinine Creat Clearance w eGFR Random Glucose Calcium Total Bilirubin AST ALT Alkaline Phosphatase Total Protein Albumin Urine Color Yellow Urine Appearance Clear Urine pH 5.0 Ur Specific [place] 1.017 Urine Protein Negative Urine Glucose (UA) Negative Urine Ketones Trace H Urine Blood Negative Urine Nitrite Negative Urine Bilirubin Negative Urine Urobilinogen 2.0 Ur Leukocyte Esterase Negative RPR Titer HIV 1&2 Antibody Screen Negative HIV P24 Antigen Negative 10/11/18 10/11/18 07:00 07:00 WBC RBC Hgb Hct MCV MCH MCHC RDW Plt Count MPV Sodium 137 Potassium 4.1 Chloride 103 Carbon Dioxide 29 Anion Gap 6 L BUN 8 Creatinine 0.9 Creat Clearance w eGFR > 60 Random Glucose 77 Calcium 8.8 Total Bilirubin 0.7 AST 30 ALT 33 Alkaline Phosphatase 116 Total Protein 7.2 Albumin 3.9 Urine Color Urine Appearance Urine pH Ur Specific [place] Urine Protein Urine Glucose (UA) Urine Ketones Urine Blood Urine Nitrite Urine Bilirubin Urine Urobilinogen Ur Leukocyte Esterase RPR Titer Nonreactive HIV 1&2 Antibody Screen HIV P24 Antigen LABS NOTED. Assessment: 10/12/18 15:05 WITHDRAWAL SYMPTOMS. Plan: CONTINUE DETOX.
--- NOTE | 2018-10-12 15:07 | DS ---
[facility] Detox Discharge Summary Admission Date: 10/10/18 Discharge Date: 10/12/18 - History Present History: Alcohol Dependence, Cocaine Dependence Additional Comments: PATIENT DOES NOT WISH TO REMAIN TO COMPLETE DETOX REGIMEN. RISKS OF LEAVING DETOX UNIT AGAINST MEDICAL ADVICE AND PRIOR TO COMPLETION OF DETOX REGIMEN EXPLAINED TO PATIENT. PATIENT ADVISED TO GO IMMEDIATELY TO NEAREST ER SHOULD ANY INTOLERABLE DETOX SYMPTOMS DEVELOP AT ANY TIME. PATIENT VERBALIZED UNDERSTANDING OF ALL INFORMATION / RECOMMENDATIONS PRESENTED TO HIM PRIOR TO DEPARTURE FROM DETOX UNIT. PATIENT LEFT DETOX UNIT IN STABLE MEDICAL CONDITION. Pertinent Past History: Nicotine Dependence, Elevated BP Readings, History of Seizures (Due to ETOH Withdrawal), History of Depression, Back Pain, Weight Loss. - Physical Exam Results Vital Signs: Vital Signs Temperature 97.1 F L 10/12/18 09:16 Pulse Rate 92 H 10/12/18 09:16 Respiratory Rate 20 10/12/18 09:16 Blood Pressure 141/86 10/12/18 09:16 O2 Sat by Pulse Oximetry (%) Pertinent Admission Physical Exam Findings: WITHDRAWAL SYMPTOMS. Laboratory Tests 10/10/18 10/11/18 10/11/18 21:00 07:00 07:00 WBC 7.0 RBC 4.64 Hgb 15.0 Hct 43.1 MCV 93.0 MCH 32.4 MCHC 34.9 RDW 13.6 Plt Count 268 MPV 8.0 Sodium Potassium Chloride Carbon Dioxide Anion Gap BUN Creatinine Creat Clearance w eGFR Random Glucose Calcium Total Bilirubin AST ALT Alkaline Phosphatase Total Protein Albumin Urine Color Yellow Urine Appearance Clear Urine pH 5.0 Ur Specific [place] 1.017 Urine Protein Negative Urine Glucose (UA) Negative Urine Ketones Trace H Urine Blood Negative Urine Nitrite Negative Urine Bilirubin Negative Urine Urobilinogen 2.0 Ur Leukocyte Esterase Negative RPR Titer HIV 1&2 Antibody Screen Negative HIV P24 Antigen Negative 10/11/18 10/11/18 07:00 07:00 WBC RBC Hgb Hct MCV MCH MCHC RDW Plt Count MPV Sodium 137 Potassium 4.1 Chloride 103 Carbon Dioxide 29 Anion Gap 6 L BUN 8 Creatinine 0.9 Creat Clearance w eGFR > 60 Random Glucose 77 Calcium 8.8 Total Bilirubin 0.7 AST 30 ALT 33 Alkaline Phosphatase 116 Total Protein 7.2 Albumin 3.9 Urine Color Urine Appearance Urine pH Ur Specific [place] Urine Protein Urine Glucose (UA) Urine Ketones Urine Blood Urine Nitrite Urine Bilirubin Urine Urobilinogen Ur Leukocyte Esterase RPR Titer Nonreactive HIV 1&2 Antibody Screen HIV P24 Antigen LABS NOTED. - Treatment Hospital Course: Detox Protocol Followed, Detoxed Safely - Medication Discharge Medications: Ambulatory Orders Cyclobenzaprine HCl [Flexeril -] 10 mg PO TID PRN #60 tablet 06/21/18 Zolpidem Tartrate [Ambien] 10 mg PO HS 06/21/18 - Diagnosis (1) Elevated blood pressure reading Status: Acute (2) Nicotine dependence Status: Acute Qualifiers: Nicotine product type: cigarettes Substance use status: uncomplicated Qualified Code(s): F17.210 - Nicotine dependence, cigarettes, uncomplicated (3) Weight loss Status: Acute (4) Alcohol dependence with uncomplicated withdrawal Status: Acute (5) Back pain Status: Chronic Qualifiers: Back pain location: back pain in unspecified location Chronicity: unspecified Back pain laterality: unspecified Qualified Code(s): M54.9 - Dorsalgia, unspecified (6) Cocaine dependence Status: Chronic Qualifiers: Substance use status: uncomplicated Qualified Code(s): F14.20 - Cocaine dependence, uncomplicated - AMA Did Patient Leave Against Medical Advice: Yes (PATIENT DID NOT WISH TO REMAIN TO COMPLETE DETOX REGIMEN.)
[2018-10-12] MEDS ORDERED: chlordiazePOXIDE 5 MG CAPSULE PO SCH (23:00)
[2018-10-13] MEDS ORDERED: chlordiazePOXIDE HCL 10 MG CAPSULE PO SCH (23:00)
== END 2018-10-12 09:40 | disposition left against medical advice (07) | DRG 770 ==
LOC: YASAS 13:47 → Y3N 18:01
PROVIDERS: ADMIT Surgery; ATTEND Surgery
PROC: HZ2ZZZZ Detoxification Services for Substance Abuse Treatment (ICD-10-PCS; principal; 2018-10-10)
DX: F10.230 Alcohol dependence with withdrawal, uncomplicated (principal); F14.20 Cocaine dependence, uncomplicated; F17.210 Nicotine dependence, cigarettes, uncomplicated; F32.9 Major depressive disorder, single episode, unspecified; M54.5 Low back pain; Z86.69 Personal history of other diseases of the nervous system and sense organs; R63.4 Abnormal weight loss; Z68.28 Body mass index [BMI] 28.0-28.9, adult
CPT/HCPCS: 36415; 80053; 81003; 85027; 86593; 87389; J0735

== ENCOUNTER 2018-11-19 11:51 | Inpatient (IN) | payer OTHER ==
[2018-11-19 16:05] VITALS: BMI 29.2
--- NOTE | 2018-11-19 17:46 | HP ---
CIWA Score Nausea/Vomitin-Int. Nausea w/Dry Heave Muscle Tremors: None Anxiety: 4-Mod. Anxious/Guarded Agitation: 4-Moderately Restless Paroxysmal Sweats: 3 (Increased facial moisture) Orientation: 0-Oriented Tacttile Disturbances: 0-None Auditory Disturbances: 0-None Visual Disturbances: 0-None Headache: 3-Moderate CIWA-Ar Total Score: 18 - Admission Criteria OASAS Guidelines: Admission for Medically Managed Detox: Requires at least one of the followin. CIWA greater than 12 2. Seizures within the past 24 hours 3. Delirium tremens within the past 24 hours 4. Hallucinations within the past 24 hours 5. Acute intervention needed for co occurring medical disorder 6. Acute intervention needed for co occurring psychiatric disorder 7. Severe withdrawal that cannot be handled at a lower level of care (continued vomiting, continued diarrhea, abnormal vital signs) requiring intravenous medication and/or fluids 8. Patient presents the following: CIWA greater than 12 Admission Criteria Met: Admission criteria met Admission ROS [facility] Chief Complaint: Here for alcohol withdrawal. Allergies/Adverse Reactions: Allergies Allergy/AdvReac Type Severity Reaction Status Date / Time Fish Containing Products Allergy Severe Difficulty Verified 10/10/18 16:51 Breathing tramadol Allergy Severe Itching Verified 10/10/18 16:51 History of Present Illness: Here for alcohol detox. States vomiting r/t drinking. States in [facility] and left today. States was given IV fluids. Alcohol use began at age 18. States current use started around age [age]. Cocaine use began at age 24. 4-5 gm/ 3-4x/wk/nasal Marijuana use began at age 18. 1 bag/ month Nicotine use began at age 18. Denies Suboxone use. Denies opiate use. Seizures and overdose 5 ago yrs r/t alcohol and cocaine abuse. Blackouts - last 3 weeks ago. Last detox [facility] September 2018. States relapsed 2 days after discharge. Longest sobriety 2.5 years. PMHX: chronic low back pain - herniated disc - States on oxycodone but "doesn't take it like that'. Patient informed and verbalizes an understanding that opiate medications re not available during detox. [email or web address] on 06/21/18 reviewed. MHHx: Insomnia, anxiety and depression. Denies thoughts of harming self or others. Patient Name: Ronald Ramirez Date: 1985 Address: [facility] [place] [address] Sex: Male Rx Written Rx Dispensed Drug Quantity Days Supply Prescriber Name 11/15/2018 11/15/2018 oxycodone-acetaminophen 10-325 mg tab 30 30 Knight, Gloria 10/15/2018 10/15/2018 oxycodone-acetaminophen 10-325 mg tab 30 30 Lucho Aidan Mccallum 09/15/2018 09/15/2018 oxycodone-acetaminophen 10-325 mg tab 30 30 Rodo Mena C 07/23/2018 07/23/2018 oxycodone-acetaminophen 10-325 mg tab 60 30 Knight, Gloria 06/18/2018 06/18/2018 oxycodone-acetaminophen 10-325 mg tab 30 30 Knight, Gloria 05/21/2018 05/21/2018 oxycodone-acetaminophen 10-325 mg tab 30 30 Lucho Aidan Mccallum 04/23/2018 04/23/2018 oxycodone-acetaminophen 10-325 mg tab 30 30 Timur Garrison 03/19/2018 03/22/2018 oxycodone-acetaminophen 10-325 mg tab 30 30 Loki Carmen () 02/22/2018 02/22/2018 oxycodone-acetaminophen 10-325 mg tab 30 30 Loki Carmen) 01/22/2018 01/22/2018 oxycodone-acetaminophen 10-325 mg tab 30 30 Loki Carmen) 11/20/2017 11/20/2017 oxycodone-acetaminophen 10-325 mg tab 30 30 Bladimir McclendonYifan Villagran Patient Name: Ronald Ramirez Date: 1985 [facility] [place] [address] Sex: Male Rx Written Rx Dispensed Drug Quantity Days Supply Prescriber Name 11/15/2017 11/22/2017 oxycodone-acetaminophen 5-325 mg tablet 40 10 Lazaro Jacob Exam Limitations: No Limitations - Ebola screening Have you traveled outside of the country in the last 21 days: No Have you had contact with anyone from an Ebola affected area: No Have you been sick,other than usual withdrawal symptoms: No Do you have a fever: No - Review of Systems Constitutional: Diaphoresis, Changes in sleep (Difficulty falling asleep) EENT: reports: Blurred Vision Respiratory: reports: No Symptoms reported Cardiac: reports: No Symptoms Reported (Heart mumur as a child) GI: reports: Diarrhea (Soft/watery brownish - was black and HCP checked for blood - which was absent), Nausea, Vomiting, Indigestion (Heart burn) : reports: No Symptoms Reported Musculoskeletal: reports: Back Pain (Intermittent sharp LBP. Not present at this time. Sitting too long, walking. Improves w/ rest, sometimes.) Integumentary: reports: No Symptoms Reported Neuro: reports: Headache (Moderate - pressure frontal headache), Tremors Endocrine: reports: Increased Thirst Hematology: reports: No Symptoms Reported Psychiatric: reports: Judgement Intact, Orientated x3, Agitated, Anxious, Depressed (Denies thoughts of harming self or others.) Patient History - Patient Medical History Hx Anemia: No Hx Asthma: No Hx Chronic Obstructive Pulmonary Disease (COPD): No Hx Cancer: No Hx Cardiac Disorders: No Hx Congestive Heart Failure: No Hx Hypertension: No Hx Hypercholesterolemia: No Hx Pacemaker: No HX Cerebrovascular Accident: No Hx Seizures: Yes (alcohol related-last episode was in 2014) Hx Dementia: No Hx Diabetes: No Hx Gastrointestinal Disorders: No Hx Liver Disease: No Hx Genitourinary Disorders: No Hx Sexually Transmitted Disorders: No Hx Renal Disease (ESRD): No Hx Thyroid Disease: No Hx Human Immunodeficiency Virus (HIV): No (NEGATIVE 2017) Hx Hepatitis C: No Hx Depression: Yes Hx Suicide Attempt: No Hx Bipolar Disorder: No Hx Schizophrenia: No - Patient Surgical History Past Surgical History: Yes Hx Neurologic Surgery: No Hx Cataract Extraction: No Hx Cardiac Surgery: No Hx Lung Surgery: No Hx Breast Surgery: No Hx Breast Biopsy: No Hx Abdominal Surgery: No Hx Appendectomy: No Hx Cholecystectomy: No Hx Genitourinary Surgery: No Hx Orthopedic Surgery: Yes (fx, left ankle in 2016) Anesthesia Reaction: No - PPD History Previous Implant?: Yes Documented Results: Negative w/proof Implanted On Prior R Admission?: Yes Date: 04/01/18 Results: 0 mm PPD to be Administered?: No - Smoking Cessation Smoking history: Current every day smoker Have you smoked in the past 12 months: Yes Aproximately how many cigarettes per day: 20 Cigars Per Day: 0 Hx Chewing Tobacco Use: No Initiated information on smoking cessation: Yes 'Breaking Loose' booklet given: 11/19/18 - Substance & Tx. History Hx Alcohol Use: Yes Hx Substance Use: Yes Substance Use Type: Alcohol, Cocaine, Marijuana Hx Substance Use Treatment: Yes (detox, rehab) - Substances abused Alcohol Substance route: Oral Amount used: 2 pint vodka and 1 pack of beer Age of first use: 18 Date of last use: 11/18/18 Family Disease History - Family Disease History Family Disease History: Diabetes: Father (HTN), Other: Father Admission Physical Exam [facility] - Vital Signs Vital Signs: Vital Signs - 24 hr 11/19/18 15:55 Temperature 97.3 F L Pulse Rate 77 Respiratory 18 Rate Blood Pressure 158/94 - Physical General Appearance: Yes: Nourished, Appropriately Dressed, Mild Distress, Tremorous, Sweating, Anxious HEENTM: Yes: EOMI (Jerking movement of eyes with (L) lateral gaze), Hearing grossly Normal, Normal ENT Inspection, Normocephalic, SHADIA, Pharynx Normal Respiratory: Yes: Lungs Clear, Normal Breath Sounds, No Respiratory Distress Neck: Yes: No masses,lesions,Nodules, Supple Breast: Yes: Breast Exam Deferred Cardiology: Yes: Regular Rhythm, Regular Rate, S1, S2 Abdominal: Yes: Soft, Protuberent, Tenderness (Mid epigastric tenderness. No guarding. 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 NML intact (Jerking movement of eyes with (L) lateral gaze), Fully Oriented, Alert, Motor Strength 5/5, Normal Mood/Affect Integumentary: Yes: Normal Color, Dry (Decreased skin turgor except for increased facial moisture), Warm, Diaphoresis (Increased facial moistre) Lymphatic: Yes: Within Normal Limits - Diagnostic (1) Dehydration Current Visit: Yes Status: Acute (2) Alcohol dependence with uncomplicated withdrawal Current Visit: No Status: Acute (3) Elevated blood pressure reading Current Visit: No Status: Acute (4) Back pain Current Visit: No Status: Chronic Qualifiers: Back pain location: back pain in unspecified location Chronicity: unspecified Back pain laterality: unspecified Qualified Code(s): M54.9 - Dorsalgia, unspecified (5) Cannabis dependence, uncomplicated Current Visit: No Status: Chronic (6) Cocaine dependence Current Visit: No Status: Chronic Qualifiers: Substance use status: uncomplicated Qualified Code(s): F14.20 - Cocaine dependence, uncomplicated (7) GERD (gastroesophageal reflux disease) Current Visit: No Status: Chronic Qualifiers: Esophagitis presence: esophagitis presence not specified Qualified Code(s) : K21.9 - Gastro-esophageal reflux disease without esophagitis (8) Hx of seizure disorder Current Visit: No Status: Suspected Cleared for Admission S - Detox or Rehab [facility] Level of Care: Medically Managed Detox Regimen/Protocol: Librium Breathalyzer - Breathalyzer Breathalyzer: 0 Urine Drug Screen - Test Device Lot number: [id number] Expiration date: 11/11/19 - Control Is test valid?: Yes - Results Drug screen NEGATIVE: No Urine drug screen results: THC-Marijuana, JULIANO-Cocaine, BUP-Suboxone Inpatient Rehab Admission - Rehab Decision to Admit Inpatient rehab admission?: No
[2018-11-19] MEDS ORDERED: NICOTINE POLACRILEX 2 MG GUM BUC PRN (18:26)
[2018-11-19] MEDS ORDERED: MAGNESIUM HYDROX 2400MG/30ML ORAL SUSPENSION 30 ML CUP PO PRN (18:26)
[2018-11-19] MEDS ORDERED: chlordiazePOXIDE HCL 25 MG CAPSULE PO PRN (18:26)
[2018-11-19] MEDS ORDERED: ACETAMINOPHEN 325 MG TABLET (FP) PO PRN ×2 (18:26)
[2018-11-19] MEDS ORDERED: MENTHOL/PHENOL 1 EACH UD MM PRN (18:26)
[2018-11-19] MEDS ORDERED: PROCHLORPERAZINE MALEATE 5 MG TABLET PO PRN (18:26)
[2018-11-19] MEDS ORDERED: BISMUTH SUBSALICYLATE 524 MG/30 ML UD PO PRN (18:26)
[2018-11-19] MEDS ORDERED: METHOCARBAMOL 500 MG TABLET PO PRN (18:26)
[2018-11-19] MEDS ORDERED: MAGNESIUM CITRATE 300 ML BOTTLE PO PRN (18:26)
[2018-11-19] MEDS ORDERED: IBUPROFEN 400 MG TABLET (FP) PO PRN (18:26)
[2018-11-19] MEDS ORDERED: guaiFENesin 200 MG/10 ML 10 ML UNIT-DOSE CUPS PO PRN (18:26)
[2018-11-19] MEDS ORDERED: chlordiazePOXIDE HCL 25 MG CAPSULE PO ONE (19:15)
[2018-11-19] MEDS ORDERED: TRIMETHOBENZAMIDE HCL 200MG/2ML INJ IM ONE (19:15)
[2018-11-19] MEDS: MAG HYDROX/AL HYDROX/SIMETH 30 ML UNIT-DOSE CUP PO PRN (19:53)
[2018-11-19] MEDS: CYCLOBENZAPRINE HCL 10 MG TABLET (FP) PO PRN (22:13)
[2018-11-19] MEDS: THIAMINE HCL 100 MG TABLET (FP) PO SCH (22:13)
[2018-11-19] MEDS: MELATONIN 5 MG TABLETS PO PRN (22:13)
[2018-11-19] MEDS: chlordiazePOXIDE HCL 25 MG CAPSULE PO SCH (22:13)
[2018-11-20] MEDS: chlordiazePOXIDE HCL 25 MG CAPSULE PO SCH ×4 (05:16→22:09)
[2018-11-20] MEDS: PRENATAL VITAMINS W/ FOLIC ACID TABLET (FP) PO SCH (10:20)
[2018-11-20] MEDS: NICOTINE 21 MG/24 HOURS TOPICAL PATCH TD SCH (10:20)
--- NOTE | 2018-11-20 10:32 | PN ---
S CIWA - CIWA Score Nausea/Vomitin-Mild Nausea/No Vomiting Muscle Tremors: 3 Anxiety: 1-Mildly Anxious Agitation: 2 Paroxysmal Sweats: 1-Minimal Palms Moist Orientation: 3-Disoriented Date>2 days Tacttile Disturbances: 0-None Auditory Disturbances: 0-None Visual Disturbances: 0-None Headache: 2-Mild CIWA-Ar Total Score: 13 BHS Progress Note (SOAP) Subjective: feeling tired low energy minimum toleration to food tolerate fluid well Objective: 11/20/18 10:31 Vital Signs Temperature 97 F L 11/20/18 09:06 Pulse Rate 88 11/20/18 09:06 Respiratory Rate 20 11/20/18 09:06 Blood Pressure 142/99 11/20/18 09:06 O2 Sat by Pulse Oximetry (%) 11/20/18 10:32 lab pending Assessment: 11/20/18 10:32 alcohol withdrawal sx Plan: continue detox
[2018-11-20 10:38] LABS: ALBUMIN 3.8 g/dl (3.4-5.0); ALK PHOS 97 U/L (45-117); ANION GAP 7 MMOL/L (8-16); BILIRUBIN,TOTAL 0.7 mg/dL (0.2-1); BLOOD UREA NITROGEN 8 mg/dL (7-18); CALCIUM 8.8 mg/dL (8.5-10.1); CHLORIDE 100 mmol/L (98-107); CO2 28 mmol/L (21-32); CREATININE 0.7 mg/dL (0.55-1.3); GLUCOSE,RANDOM 98 mg/dL (74-106); POTASSIUM 3.6 mmol/L (3.5-5.1); SGOT/AST 65 U/L (15-37); SGPT/ALT 70 U/L (13-61); SODIUM 135 mmol/L (136-145)
[2018-11-20 10:42] LABS: HEMATOCRIT 44.1 % (35.4-49); HEMOGLOBIN 15.3 GM/dL (11.7-16.9); MCHC 34.8 g/dl (32.0-35.9); MEAN CELL VOLUME 94.7 fl (80-96); MEAN PLT VOLUME 8.2 fl (7.5-11.1); PLATELET COUNT 233 K/MM3 (134-434); RBC 4.65 M/mm3 (4.00-5.60); RDW 13.7 % (11.9-15.9); WHITE BLOOD COUNT 6.2 K/mm3 (4.0-10.0)
[2018-11-20 11:18] LABS: PH,URINE 5.5 (5.0-8.0); URINE APPEARANCE TURBID; URINE BILIRUBIN NEGATIVE (NEGATIVE); URINE COLOR YELLOW; URINE GLUCOSE (UA) NEGATIVE (NEGATIVE); URINE KETONE 3+ (NEGATIVE); URINE LEUK ESTERASE NEGATIVE (NEGATIVE); URINE NITRITE NEGATIVE (NEGATIVE); URINE PROTEIN NEGATIVE (NEGATIVE); URINE UROBILINOGEN 0.2 mg/dL (0.2-1.0)
[2018-11-20] MEDS: THIAMINE HCL 100 MG TABLET (FP) PO SCH (22:09)
[2018-11-20] MEDS: MELATONIN 5 MG TABLETS PO PRN (22:09)
[2018-11-20] MEDS: CYCLOBENZAPRINE HCL 10 MG TABLET (FP) PO PRN (22:10)
[2018-11-21] MEDS: chlordiazePOXIDE HCL 25 MG CAPSULE PO SCH ×3 (05:35→17:31)
[2018-11-21] MEDS: NICOTINE 21 MG/24 HOURS TOPICAL PATCH TD SCH (10:22)
[2018-11-21] MEDS: PRENATAL VITAMINS W/ FOLIC ACID TABLET (FP) PO SCH (10:22)
--- NOTE | 2018-11-21 11:24 | PN ---
[facility] CIWA - CIWA Score Nausea/Vomitin-Mild Nausea/No Vomiting Muscle Tremors: 3 Anxiety: 2 Agitation: 1-Slight > Activity Paroxysmal Sweats: 1-Minimal Palms Moist Orientation: 1-Uncertain about Date Tacttile Disturbances: 0-None Auditory Disturbances: 0-None Visual Disturbances: 0-None Headache: 0-None Present CIWA-Ar Total Score: 9 S Progress Note (SOAP) Subjective: doing ok today tolerate food and fluid well social with peers on hallway Objective: 11/21/18 11:25 Vital Signs Temperature 96.1 F L 11/21/18 09:06 Pulse Rate 91 H 11/21/18 09:06 Respiratory Rate 20 11/21/18 09:06 Blood Pressure 121/70 11/21/18 09:06 O2 Sat by Pulse Oximetry (%) Laboratory Last Values WBC 6.2 K/mm3 (4.0-10.0) 11/20/18 07:00 RBC 4.65 M/mm3 (4.00-5.60) 11/20/18 07:00 Hgb 15.3 GM/dL (11.7-16.9) 11/20/18 07:00 Hct 44.1 % (35.4-49) 11/20/18 07:00 MCV 94.7 fl (80-96) 11/20/18 07:00 MCH 33.0 pg (25.7-33.7) 11/20/18 07:00 MCHC 34.8 g/dl (32.0-35.9) 11/20/18 07:00 RDW 13.7 % (11.9-15.9) 11/20/18 07:00 Plt Count 233 K/MM3 (134-434) 11/20/18 07:00 MPV 8.2 fl (7.5-11.1) 11/20/18 07:00 Sodium 135 mmol/L (136-145) L 11/20/18 07:00 Potassium 3.6 mmol/L (3.5-5.1) 11/20/18 07:00 Chloride 100 mmol/L (98-107) 11/20/18 07:00 Carbon Dioxide 28 mmol/L (21-32) 11/20/18 07:00 Anion Gap 7 MMOL/L (8-16) L 11/20/18 07:00 BUN 8 mg/dL (7-18) 11/20/18 07:00 Creatinine 0.7 mg/dL (0.55-1.3) 11/20/18 07:00 Creat Clearance w eGFR 130.69 (>60) 11/20/18 07:00 Random Glucose 98 mg/dL (74-106) 11/20/18 07:00 Calcium 8.8 mg/dL (8.5-10.1) 11/20/18 07:00 Total Bilirubin 0.7 mg/dL (0.2-1) 11/20/18 07:00 AST 65 U/L (15-37) H 11/20/18 07:00 ALT 70 U/L (13-61) H 11/20/18 07:00 Alkaline Phosphatase 97 U/L (45-117) 11/20/18 07:00 Total Protein 7.0 g/dl (6.4-8.2) 11/20/18 07:00 Albumin 3.8 g/dl (3.4-5.0) 11/20/18 07:00 Urine Color Yellow 11/19/18 08:00 Urine Appearance Turbid 11/19/18 08:00 Urine pH 5.5 (5.0-8.0) 11/19/18 08:00 Ur Specific [place] 1.031 (1.010-1.035) 11/19/18 08:00 Urine Protein Negative (NEGATIVE) 11/19/18 08:00 Urine Glucose (UA) Negative (NEGATIVE) 11/19/18 08:00 Urine Ketones 3+ (NEGATIVE) H 11/19/18 08:00 Urine Blood Negative (NEGATIVE) 11/19/18 08:00 Urine Nitrite Negative (NEGATIVE) 11/19/18 08:00 Urine Bilirubin Negative (NEGATIVE) 11/19/18 08:00 Urine Urobilinogen 0.2 mg/dL (0.2-1.0) 11/19/18 08:00 Ur Leukocyte Esterase Negative (NEGATIVE) 11/19/18 08:00 RPR Titer Nonreactive (NONREACTIVE) 11/20/18 07:00 lab noted Assessment: 11/21/18 11:26alcohol withdrawal sx Plan: continue detox
[2018-11-21] MEDS: MAG HYDROX/AL HYDROX/SIMETH 30 ML UNIT-DOSE CUP PO PRN (21:09)
[2018-11-21] MEDS: CYCLOBENZAPRINE HCL 10 MG TABLET (FP) PO PRN (22:13)
[2018-11-21] MEDS: THIAMINE HCL 100 MG TABLET (FP) PO SCH (22:13)
[2018-11-21] MEDS: chlordiazePOXIDE HCL 10 MG CAPSULE PO SCH (22:13)
[2018-11-21] MEDS: MELATONIN 5 MG TABLETS PO PRN (22:14)
[2018-11-21] MEDS ORDERED: chlordiazePOXIDE HCL 10 MG CAPSULE PO PRN (23:00)
[2018-11-22] MEDS: chlordiazePOXIDE HCL 10 MG CAPSULE PO SCH ×2 (05:09→10:07)
[2018-11-22 09:33] VITALS: BP 123/80; PULSE 83; TEMP 98.6
[2018-11-22] MEDS: NICOTINE 21 MG/24 HOURS TOPICAL PATCH TD SCH (10:07)
[2018-11-22] MEDS: PRENATAL VITAMINS W/ FOLIC ACID TABLET (FP) PO SCH (10:07)
--- NOTE | 2018-11-22 10:48 | PN ---
S CIWA - CIWA Score Nausea/Vomitin-No Nausea/No Vomiting Muscle Tremors: 2 Anxiety: 1-Mildly Anxious Agitation: 1-Slight > Activity Paroxysmal Sweats: No Perspiration Orientation: 0-Oriented Tacttile Disturbances: 0-None Auditory Disturbances: 0-None Visual Disturbances: 0-None Headache: 0-None Present CIWA-Ar Total Score: 4 BHS Progress Note (SOAP) Subjective: feeling better ambulating on hallway discuss aftercare with staff Objective: 11/22/18 10:49 Vital Signs Temperature 98.6 F 11/22/18 09:32 Pulse Rate 83 11/22/18 09:32 Respiratory Rate 18 11/22/18 09:32 Blood Pressure 123/80 11/22/18 09:32 O2 Sat by Pulse Oximetry (%) Laboratory Last Values WBC 6.2 K/mm3 (4.0-10.0) 11/20/18 07:00 RBC 4.65 M/mm3 (4.00-5.60) 11/20/18 07:00 Hgb 15.3 GM/dL (11.7-16.9) 11/20/18 07:00 Hct 44.1 % (35.4-49) 11/20/18 07:00 MCV 94.7 fl (80-96) 11/20/18 07:00 MCH 33.0 pg (25.7-33.7) 11/20/18 07:00 MCHC 34.8 g/dl (32.0-35.9) 11/20/18 07:00 RDW 13.7 % (11.9-15.9) 11/20/18 07:00 Plt Count 233 K/MM3 (134-434) 11/20/18 07:00 MPV 8.2 fl (7.5-11.1) 11/20/18 07:00 Sodium 135 mmol/L (136-145) L 11/20/18 07:00 Potassium 3.6 mmol/L (3.5-5.1) 11/20/18 07:00 Chloride 100 mmol/L (98-107) 11/20/18 07:00 Carbon Dioxide 28 mmol/L (21-32) 11/20/18 07:00 Anion Gap 7 MMOL/L (8-16) L 11/20/18 07:00 BUN 8 mg/dL (7-18) 11/20/18 07:00 Creatinine 0.7 mg/dL (0.55-1.3) 11/20/18 07:00 Creat Clearance w eGFR 130.69 (>60) 11/20/18 07:00 Random Glucose 98 mg/dL (74-106) 11/20/18 07:00 Calcium 8.8 mg/dL (8.5-10.1) 11/20/18 07:00 Total Bilirubin 0.7 mg/dL (0.2-1) 11/20/18 07:00 AST 65 U/L (15-37) H 11/20/18 07:00 ALT 70 U/L (13-61) H 11/20/18 07:00 Alkaline Phosphatase 97 U/L (45-117) 11/20/18 07:00 Total Protein 7.0 g/dl (6.4-8.2) 11/20/18 07:00 Albumin 3.8 g/dl (3.4-5.0) 11/20/18 07:00 Urine Color Yellow 11/19/18 08:00 Urine Appearance Turbid 11/19/18 08:00 Urine pH 5.5 (5.0-8.0) 11/19/18 08:00 Ur Specific [place] 1.031 (1.010-1.035) 11/19/18 08:00 Urine Protein Negative (NEGATIVE) 11/19/18 08:00 Urine Glucose (UA) Negative (NEGATIVE) 11/19/18 08:00 Urine Ketones 3+ (NEGATIVE) H 11/19/18 08:00 Urine Blood Negative (NEGATIVE) 11/19/18 08:00 Urine Nitrite Negative (NEGATIVE) 11/19/18 08:00 Urine Bilirubin Negative (NEGATIVE) 11/19/18 08:00 Urine Urobilinogen 0.2 mg/dL (0.2-1.0) 11/19/18 08:00 Ur Leukocyte Esterase Negative (NEGATIVE) 11/19/18 08:00 RPR Titer Nonreactive (NONREACTIVE) 11/20/18 07:00 lab noted Assessment: 11/22/18 10:49 mild withdrawal sx Plan: continue detox
--- NOTE | 2018-11-22 15:26 | DS ---
[facility] Detox Discharge Summary Admission Date: 11/19/18 Discharge Date: 11/22/18 - History Present History: Alcohol Dependence Additional Comments: 33 years old male admitted on 11/19/18 for alcohol withdrawal stabilization feeling better denies suicidal alert no acute distress aftercare [facility] - Physical Exam Results Vital Signs: Vital Signs Temperature 98.6 F 11/22/18 09:32 Pulse Rate 83 11/22/18 09:32 Respiratory Rate 18 11/22/18 09:32 Blood Pressure 123/80 11/22/18 09:32 O2 Sat by Pulse Oximetry (%) Pertinent Admission Physical Exam Findings: alcohol withdrawal sx Laboratory Last Values WBC 6.2 K/mm3 (4.0-10.0) 11/20/18 07:00 RBC 4.65 M/mm3 (4.00-5.60) 11/20/18 07:00 Hgb 15.3 GM/dL (11.7-16.9) 11/20/18 07:00 Hct 44.1 % (35.4-49) 11/20/18 07:00 MCV 94.7 fl (80-96) 11/20/18 07:00 MCH 33.0 pg (25.7-33.7) 11/20/18 07:00 MCHC 34.8 g/dl (32.0-35.9) 11/20/18 07:00 RDW 13.7 % (11.9-15.9) 11/20/18 07:00 Plt Count 233 K/MM3 (134-434) 11/20/18 07:00 MPV 8.2 fl (7.5-11.1) 11/20/18 07:00 Sodium 135 mmol/L (136-145) L 11/20/18 07:00 Potassium 3.6 mmol/L (3.5-5.1) 11/20/18 07:00 Chloride 100 mmol/L (98-107) 11/20/18 07:00 Carbon Dioxide 28 mmol/L (21-32) 11/20/18 07:00 Anion Gap 7 MMOL/L (8-16) L 11/20/18 07:00 BUN 8 mg/dL (7-18) 11/20/18 07:00 Creatinine 0.7 mg/dL (0.55-1.3) 11/20/18 07:00 Creat Clearance w eGFR 130.69 (>60) 11/20/18 07:00 Random Glucose 98 mg/dL (74-106) 11/20/18 07:00 Calcium 8.8 mg/dL (8.5-10.1) 11/20/18 07:00 Total Bilirubin 0.7 mg/dL (0.2-1) 11/20/18 07:00 AST 65 U/L (15-37) H 11/20/18 07:00 ALT 70 U/L (13-61) H 11/20/18 07:00 Alkaline Phosphatase 97 U/L (45-117) 11/20/18 07:00 Total Protein 7.0 g/dl (6.4-8.2) 11/20/18 07:00 Albumin 3.8 g/dl (3.4-5.0) 11/20/18 07:00 Urine Color Yellow 11/19/18 08:00 Urine Appearance Turbid 11/19/18 08:00 Urine pH 5.5 (5.0-8.0) 11/19/18 08:00 Ur Specific [place] 1.031 (1.010-1.035) 11/19/18 08:00 Urine Protein Negative (NEGATIVE) 11/19/18 08:00 Urine Glucose (UA) Negative (NEGATIVE) 11/19/18 08:00 Urine Ketones 3+ (NEGATIVE) H 11/19/18 08:00 Urine Blood Negative (NEGATIVE) 11/19/18 08:00 Urine Nitrite Negative (NEGATIVE) 11/19/18 08:00 Urine Bilirubin Negative (NEGATIVE) 11/19/18 08:00 Urine Urobilinogen 0.2 mg/dL (0.2-1.0) 11/19/18 08:00 Ur Leukocyte Esterase Negative (NEGATIVE) 11/19/18 08:00 RPR Titer Nonreactive (NONREACTIVE) 11/20/18 07:00 lab noted - Treatment Hospital Course: Detox Protocol Followed, Detoxed Safely, Responded well, Discharged Condition Good, Rehab Referral Accepted Patient has Accepted [facility] Ref[facility]: [facility] - Medication Discharge Medications: Ambulatory Orders Cyclobenzaprine HCl [Flexeril -] 10 mg PO TID PRN #60 tablet 06/21/18 Zolpidem Tartrate [Ambien] 10 mg PO HS 06/21/18 Oxycodone HCl/Acetaminophen [Oxycodone-Acetaminophen 10-325] 1 each PO DAILY 04/01 - Diagnosis (1) Alcohol dependence with uncomplicated withdrawal Status: Acute (2) Use of cane as ambulatory aid Status: Chronic (3) GERD (gastroesophageal reflux disease) Status: Chronic Qualifiers: Esophagitis presence: without esophagitis Qualified Code(s): K21.9 - Gastro -esophageal reflux disease without esophagitis (4) HTN (hypertension) Status: Chronic Qualifiers: Hypertension type: unspecified Qualified Code(s): I10 - Essential (primary ) hypertension (5) Nicotine dependence Status: Acute Qualifiers: Nicotine product type: cigarettes Substance use status: uncomplicated Qualified Code(s): F17.210 - Nicotine dependence, cigarettes, uncomplicated - AMA Did Patient Leave Against Medical Advice: No
[2018-11-22] MEDS ORDERED: chlordiazePOXIDE HCL 10 MG CAPSULE PO SCH (23:00)
== END 2018-11-22 15:50 | disposition home or self-care (01) | DRG 774 ==
LOC: YASAS 11:51 → Y3N 18:58
PROVIDERS: ADMIT Surgery; ATTEND Surgery
PROC: HZ2ZZZZ Detoxification Services for Substance Abuse Treatment (ICD-10-PCS; principal; 2018-11-19)
DX: F10.230 Alcohol dependence with withdrawal, uncomplicated (principal); F14.20 Cocaine dependence, uncomplicated; F12.20 Cannabis dependence, uncomplicated; F17.210 Nicotine dependence, cigarettes, uncomplicated; I10 Essential (primary) hypertension; K21.9 Gastro-esophageal reflux disease without esophagitis; M54.9 Dorsalgia, unspecified; G89.29 Other chronic pain; R26.2 Difficulty in walking, not elsewhere classified; Z99.89 Dependence on other enabling machines and devices; Z86.69 Personal history of other diseases of the nervous system and sense organs; Z91.013 Allergy to seafood; Z88.8 Allergy status to other drugs, medicaments and biological substances
CPT/HCPCS: 36415; 80053; 81003; 85027; 86593

== ENCOUNTER 2018-12-26 10:48 | Inpatient (IN) | payer OTHER ==
[2018-12-26 13:45] VITALS: BMI 27.2
--- NOTE | 2018-12-26 14:43 | HP ---
CIWA Score Nausea/Vomitin Muscle Tremors: 2 Anxiety: 2 Agitation: 2 Paroxysmal Sweats: 1-Minimal Palms Moist Orientation: 0-Oriented Tacttile Disturbances: 1-Very Mild Itch/Numbness Auditory Disturbances: 1-Very Mild Visual Disturbances: 0-None Headache: 2-Mild CIWA-Ar Total Score: 13 - Admission Criteria OASAS Guidelines: Admission for Medically Managed Detox: Requires at least one of the followin. CIWA greater than 12 2. Seizures within the past 24 hours 3. Delirium tremens within the past 24 hours 4. Hallucinations within the past 24 hours 5. Acute intervention needed for co occurring medical disorder 6. Acute intervention needed for co occurring psychiatric disorder 7. Severe withdrawal that cannot be handled at a lower level of care (continued vomiting, continued diarrhea, abnormal vital signs) requiring intravenous medication and/or fluids 8. Admission ROS BHS - HPI Chief Complaint: i need help to stop droning alcohol and cocaine Allergies/Adverse Reactions: Allergies Allergy/AdvReac Type Severity Reaction Status Date / Time Fish Containing Products Allergy Severe Difficulty Verified 12/26/18 13:37 Breathing tramadol Allergy Severe Itching Verified 12/26/18 13:37 History of Present Illness: this 33 years old male with alcohol and cocaine dependence seeking detox, withdrawal symptom, multiple admissions in detox,but keep relapsing, withdrawal symptom seizure last 2014 nicotine dependence,does not want nicotine replacement longest sobriety 3 and half years major depression plan for rehab after detox Exam Limitations: No Limitations - Ebola screening Have you traveled outside of the country in the last 21 days: No (N) Have you had contact with anyone from an Ebola affected area: No Do you have a fever: No - Review of Systems Constitutional: Loss of Appetite, Malaise, Night Sweats, Unintentional Wgt. Loss EENT: reports: Tearing, Nose Congestion Respiratory: reports: No Symptoms reported Cardiac: reports: No Symptoms Reported GI: reports: Nausea, Poor Appetite, Abdominal cramping : reports: No Symptoms Reported Musculoskeletal: reports: Back Pain Integumentary: reports: Dryness Neuro: reports: No Symptoms reported Endocrine: reports: No Symptoms Reported Hematology: reports: No Symptoms Reported Psychiatric: reports: Depressed Other Systems: Reviewed and Negative Patient History - Patient Medical History Hx Anemia: No Hx Asthma: No Hx Chronic Obstructive Pulmonary Disease (COPD): No Hx Cancer: No Hx Cardiac Disorders: No Hx Congestive Heart Failure: No Hx Hypertension: No Hx Hypercholesterolemia: No Hx Pacemaker: No HX Cerebrovascular Accident: No Hx Seizures: Yes (alcohol related-last episode was in 2014) Hx Dementia: No Hx Diabetes: No Hx Gastrointestinal Disorders: No Hx Liver Disease: No Hx Genitourinary Disorders: No Hx Sexually Transmitted Disorders: No Hx Renal Disease (ESRD): No Hx Thyroid Disease: No Hx Human Immunodeficiency Virus (HIV): No (NEGATIVE 2017 ) Hx Hepatitis C: No Hx Depression: Yes Hx Suicide Attempt: No Hx Bipolar Disorder: No Hx Schizophrenia: No Other Medical History: no suicidal,no homicidal - Patient Surgical History Past Surgical History: Yes Hx Neurologic Surgery: No Hx Cataract Extraction: No Hx Cardiac Surgery: No Hx Lung Surgery: No Hx Breast Surgery: No Hx Breast Biopsy: No Hx Abdominal Surgery: No Hx Appendectomy: No Hx Cholecystectomy: No Hx Genitourinary Surgery: No Hx Orthopedic Surgery: Yes (fx, left ankle in 2016) Anesthesia Reaction: No - PPD History Previous Implant?: Yes Documented Results: Negative w/proof Date: 04/01/18 Results: 0 mm PPD to be Administered?: No - Smoking Cessation Smoking history: Current every day smoker Have you smoked in the past 12 months: Yes Aproximately how many cigarettes per day: 20 Cigars Per Day: 0 Hx Chewing Tobacco Use: No Initiated information on smoking cessation: Yes 'Breaking Loose' booklet given: 12/27/18 - Substance & Tx. History Hx Alcohol Use: Yes Hx Substance Use: Yes Substance Use Type: Alcohol, Cocaine Hx Substance Use Treatment: Yes ([facility] 11/19/18 to 03/24/19) - Substances abused Alcohol Substance route: Oral Amount used: 2 pint vodka and 1 pack of beer 24 ozs Age of first use: 18 Date of last use: 12/26/18 Cocaine Substance route: Inhalation Frequency: 3-6 times per week Amount used: 20$ Age of first use: 23 Date of last use: 12/25/18 Marijuana/Hashish Substance route: Smoking Frequency: 1-3 times last 30 days Amount used: 10$ Age of first use: 21 Date of last use: 12/12/18 Family Disease History - Family Disease History Family Disease History: Diabetes: Father (HTN), Other: Father Admission Physical Exam BHS - Vital Signs Vital Signs: Vital Signs - 24 hr 12/26/18 13:39 Temperature 98.5 F Pulse Rate 96 H Respiratory 20 Rate Blood Pressure 145/76 - Physical General Appearance: Yes: Moderate Distress, Tremorous HEENTM: Yes: Normal ENT Inspection, Pharynx Normal Respiratory: Yes: Within Normal Limits, Lungs Clear, Normal Breath Sounds Neck: Yes: Within Normal Limits, Supple, Trachea in good position Breast: Yes: Within Normal Limits Cardiology: Yes: Within Normal Limits, Regular Rhythm, Regular Rate, S1, S2 Abdominal: Yes: Within Normal Limits, Normal Bowel Sounds, Non Tender, Soft Genitourinary: Yes: Within Normal Limits Back: Yes: Muscle Spasm Musculoskeletal: Yes: Back pain Extremities: Yes: Tremors Neurological: Yes: machine pecan picker II-XII NML intact, Fully Oriented, Alert, Motor Strength 5/5 Integumentary: Yes: Dry Lymphatic: Yes: Within Normal Limits - Diagnostic (1) Alcohol dependence with uncomplicated withdrawal Current Visit: No Status: Acute (2) Dehydration Current Visit: No Status: Acute (3) Insomnia Current Visit: No Status: Acute Qualifiers: Insomnia type: unspecified Qualified Code(s): G47.00 - Insomnia, unspecified (4) Insomnia secondary to depression with anxiety Current Visit: No Status: Acute (5) Nicotine dependence Current Visit: No Status: Acute Qualifiers: Nicotine product type: cigarettes Substance use status: uncomplicated Qualified Code(s): F17.210 - Nicotine dependence, cigarettes, uncomplicated (6) Weight loss Current Visit: No Status: Acute (7) Seizure Current Visit: No Status: Chronic (8) Hx of seizure disorder Current Visit: No Status: Suspected (9) Alcohol dependence with uncomplicated intoxication Current Visit: Yes Status: Acute (10) Cocaine dependence Current Visit: No Status: Chronic Qualifiers: Substance use status: uncomplicated Qualified Code(s): F14.20 - Cocaine dependence, uncomplicated (11) Cannabis abuse Current Visit: Yes Status: Acute Cleared for Admission S - Detox or Rehab S Level of Care: Medically Managed Detox Regimen/Protocol: Librium Breathalyzer - Breathalyzer Breathalyzer: 0 Urine Drug Screen - Test Device Lot number: [id number] Expiration date: 11/11/19 - Control Is test valid?: Yes - Results Drug screen NEGATIVE: No Urine drug screen results: THC-Marijuana, JULIANO-Cocaine, BUP-Suboxone Inpatient Rehab Admission - Rehab Decision to Admit Inpatient rehab admission?: No
[2018-12-26] MEDS ORDERED: IBUPROFEN 400 MG TABLET (FP) PO PRN (14:52)
[2018-12-26] MEDS ORDERED: METHOCARBAMOL 500 MG TABLET PO PRN (14:52)
[2018-12-26] MEDS ORDERED: BISMUTH SUBSALICYLATE 262 MG/15 ML BTL PO PRN (14:52)
[2018-12-26] MEDS ORDERED: MAG HYDROX/AL HYDROX/SIMETH 30 ML UNIT-DOSE CUP PO PRN (14:52)
[2018-12-26] MEDS ORDERED: hydrOXYzine PAMOATE 25 MG CAPSULE (FP) PO PRN (14:52)
[2018-12-26] MEDS ORDERED: MAGNESIUM HYDROX 2400MG/30ML ORAL SUSPENSION 30 ML CUP PO PRN (14:52)
[2018-12-26] MEDS ORDERED: ACETAMINOPHEN 325 MG TABLET (FP) PO PRN ×2 (14:52)
[2018-12-26] MEDS ORDERED: chlordiazePOXIDE HCL 25 MG CAPSULE PO PRN (14:52)
[2018-12-26] MEDS ORDERED: MENTHOL/PHENOL 1 EACH UD MM PRN (14:52)
[2018-12-26] MEDS ORDERED: MAGNESIUM CITRATE 300 ML BOTTLE PO PRN (14:52)
[2018-12-26 18:04] LABS: HEMATOCRIT 50.3 % (35.4-49); HEMOGLOBIN 16.5 GM/dL (11.7-16.9); MCH 31.4 pg (25.7-33.7); MCHC 32.9 g/dl (32.0-35.9); MEAN CELL VOLUME 95.4 fl (80-96); MEAN PLT VOLUME 8.2 fl (7.5-11.1); PLATELET COUNT 276 K/MM3 (134-434); RBC 5.27 M/mm3 (4.00-5.60); RDW 13.9 % (11.9-15.9); WHITE BLOOD COUNT 9.7 K/mm3 (4.0-10.0)
[2018-12-26] MEDS: chlordiazePOXIDE HCL 25 MG CAPSULE PO SCH ×2 (18:29→22:24)
[2018-12-26 18:35] LABS: ALBUMIN 4.6 g/dl (3.4-5.0); BILIRUBIN,TOTAL 0.4 mg/dL (0.2-1); CREATININE 0.9 mg/dL (0.55-1.3); POTASSIUM 3.8 mmol/L (3.5-5.1); TOT PROT 8.2 g/dl (6.4-8.2)
[2018-12-26] MEDS: CYCLOBENZAPRINE HCL 10 MG TABLET (FP) PO PRN (19:13)
[2018-12-26] MEDS: THIAMINE HCL 100 MG TABLET (FP) PO SCH (22:24)
[2018-12-26] MEDS: MELATONIN 5 MG TABLETS PO PRN (22:26)
[2018-12-27] MEDS: chlordiazePOXIDE HCL 25 MG CAPSULE PO SCH ×5 (05:28→22:38)
--- NOTE | 2018-12-27 09:43 | CONSULT ---
[facility] Psychiatric Consult - Data Date of interview: 12/27/18 Admission source: [facility] Identifying data: Patient is a 33 year old single male, father of four, domiciled, and is currently unemployed. This is one of multiple admissions for patient. Patient admitted to for alcohol, cocaine, and opioid dependence. Substance Abuse History: Smoking Cessation. Smoking history: Current every day smoker. Have you smoked in the past 12 months: Yes. Aproximately how many cigarettes per day: 20. Cigars Per Day: 0. Hx Chewing Tobacco Use: No. Initiated information on smoking cessation: Yes. 'Breaking Loose' booklet given : 12/27/18. - Substance & Tx. History. Hx Alcohol Use: Yes. Hx Substance Use : Yes. Substance Use Type: Alcohol, Cocaine. Hx Substance Use Treatment: Yes ( [facility] 11/19/18 to 03/24/19). - Substances abused. Alcohol. Substance route: Oral. Amount used: 2 pint vodka and 1 pack of beer 24 ozs. Age of first use: 18. Date of last use: 12/26/18. Cocaine. Substance route: Inhalation. Frequency: 3-6 times per week. Amount used: 20$. Age of first use: 23. Date of last use: 12/25/18. Marijuana/Hashish. Substance route: Smoking. Frequency: 1-3 times last 30 days. Amount used: 10$. Age of first use: 21. Date of last use: 12/12/18 Medical History: Seizures (alcohol related - 2014), fx, left ankle in 2016 Psychiatric History: Patient reports h/o one psychiatric hospitalization that occured at [facility] approximately 2 weeks ago after experiencing an " emotional breakdown." States he was diagnosed with MDD and prescribed zoloft 50mg. Mr. Ramirez denies h/o suicide attempt and has a history of noncompliance to outpatient treatment. At present patient reports stable mood but is experiencing difficulty sleeping. Physical/Sexual Abuse/Trauma History: denies. Mental Status Exam - Mental Status Exam Alert and Oriented to: Time, Place, Person Cognitive Function: Good Patient Appearance: Well Groomed Mood: Withdrawn Affect: Mood Congruent Patient Behavior: Fatigued Speech Pattern: Appropriate Voice Loudness: Moderately Soft/Quiet Thought Process: Goal Oriented Thought Disorder: Not Present Hallucinations: Denies Suicidal Ideation: Denies Homicidal Ideation: Denies Insight/Judgement: Poor Sleep: Poorly Appetite: Fair Muscle strength/Tone: Normal Gait/Station: Normal Psychiatric Findings - Problem List ([place] 1, 2,3) (1) Cannabis dependence Current Visit: Yes Status: Acute (2) Alcohol dependence with uncomplicated intoxication Current Visit: Yes Status: Acute (3) Nicotine dependence Current Visit: No Status: Acute Qualifiers: Nicotine product type: cigarettes Substance use status: uncomplicated Qualified Code(s): F17.210 - Nicotine dependence, cigarettes, uncomplicated (4) Cocaine dependence Current Visit: Yes Status: Chronic Qualifiers: Substance use status: uncomplicated Qualified Code(s): F14.20 - Cocaine dependence, uncomplicated (5) Substance induced mood disorder Current Visit: Yes Status: Acute (6) Substance-induced sleep disorder Current Visit: Yes Status: Acute - Initial Treatment Plan Initial Treatment Plan: Psychoeducation provided. Detoxification in progress. Will order Zoloft 50mg + Trazodone 50mg HS. Benefits and side effects discussed. Verbal consent given.
[2018-12-27] MEDS: SERTRALINE HCL 50 MG TABLET (FP) PO SCH (10:24)
[2018-12-27] MEDS: PRENATAL VITAMINS W/ FOLIC ACID TABLET (FP) PO SCH (10:24)
--- NOTE | 2018-12-27 10:51 | PN ---
[facility] CIWA - CIWA Score Nausea/Vomitin-Mild Nausea/No Vomiting Muscle Tremors: 3 Anxiety: 2 Agitation: 2 Paroxysmal Sweats: 1-Minimal Palms Moist Orientation: 1-Uncertain about Date Tacttile Disturbances: 0-None Auditory Disturbances: 0-None Visual Disturbances: 0-None Headache: 0-None Present CIWA-Ar Total Score: 10 S Progress Note (SOAP) Subjective: tremor doing ok with librium detox regimen Objective: 12/27/18 10:52 Vital Signs Temperature 96.8 F L 12/27/18 09:47 Pulse Rate 79 12/27/18 09:47 Respiratory Rate 18 12/27/18 09:47 Blood Pressure 125/80 12/27/18 09:47 O2 Sat by Pulse Oximetry (%) Laboratory Last Values WBC 9.7 K/mm3 (4.0-10.0) 12/26/18 15:00 RBC 5.27 M/mm3 (4.00-5.60) 12/26/18 15:00 Hgb 16.5 GM/dL (11.7-16.9) 12/26/18 15:00 Hct 50.3 % (35.4-49) H 12/26/18 15:00 MCV 95.4 fl (80-96) 12/26/18 15:00 MCH 31.4 pg (25.7-33.7) 12/26/18 15:00 MCHC 32.9 g/dl (32.0-35.9) 12/26/18 15:00 RDW 13.9 % (11.9-15.9) 12/26/18 15:00 Plt Count 276 K/MM3 (134-434) 12/26/18 15:00 MPV 8.2 fl (7.5-11.1) 12/26/18 15:00 Sodium 140 mmol/L (136-145) 12/26/18 15:00 Potassium 3.8 mmol/L (3.5-5.1) 12/26/18 15:00 Chloride 106 mmol/L (98-107) 12/26/18 15:00 Carbon Dioxide 25 mmol/L (21-32) 12/26/18 15:00 Anion Gap 9 MMOL/L (8-16) 12/26/18 15:00 BUN 7 mg/dL (7-18) 12/26/18 15:00 Creatinine 0.9 mg/dL (0.55-1.3) 12/26/18 15:00 Est GFR (CKD-EPI)AfAm 130.52 12/26/18 15:00 Est GFR (CKD-EPI)NonAf 112.62 12/26/18 15:00 Random Glucose 93 mg/dL (74-106) 12/26/18 15:00 Calcium 9.0 mg/dL (8.5-10.1) 12/26/18 15:00 Total Bilirubin 0.4 mg/dL (0.2-1) 12/26/18 15:00 AST 21 U/L (15-37) 12/26/18 15:00 ALT 21 U/L (13-61) 12/26/18 15:00 Alkaline Phosphatase 108 U/L (45-117) 12/26/18 15:00 Total Protein 8.2 g/dl (6.4-8.2) 12/26/18 15:00 Albumin 4.6 g/dl (3.4-5.0) 12/26/18 15:00 Urine Color Yellow 12/26/18 15:11 Urine Appearance Clear 12/26/18 15:11 Urine pH Cancelled 12/26/18 15:00 Urine pH (Auto) 6.0 (5.0-8.0) 12/26/18 15:11 Ur Specific [place] Cancelled 12/26/18 15:00 Specific [place] (Auto) <= 1.005 (1.010-1.035) L 12/26/18 15:11 Urine Protein Cancelled 12/26/18 15:00 Urine Protein (Auto) Negative (NEGATIVE) 12/26/18 15:11 Urine Glucose (UA) Cancelled 12/26/18 15:00 Glucose (UA)(Auto) Negative (NEGATIVE) 12/26/18 15:11 Urine Ketones Cancelled 12/26/18 15:00 Urine Ketones (Auto) Negative (NEGATIVE) 12/26/18 15:11 Urine Blood Cancelled 12/26/18 15:00 Urine Blood (Auto) Negative (NEGATIVE) 12/26/18 15:11 Urine Nitrite Cancelled 12/26/18 15:00 Urine Nitrite (Auto) Negative (NEGATIVE) 12/26/18 15:11 Urine Bilirubin Negative (<2.0 mg/dL) 12/26/18 15:11 Urine Urobilinogen Cancelled 12/26/18 15:00 Urine Urobilinogen (Auto) 0.2 mg/dL (0.2-1.0) 12/26/18 15:11 Ur Leukocyte Esterase Cancelled 12/26/18 15:00 Leukocyte Esterase (Auto) Negative (NEGATIVE) 12/26/18 15:11 Urine WBC (Auto) Cancelled 12/26/18 15:00 Urine RBC (Auto) Cancelled 12/26/18 15:00 Urine Casts (Auto) Cancelled 12/26/18 15:00 U Pathogenic Cast Auto Cancelled 12/26/18 15:00 U Epithel Cells (Auto) Cancelled 12/26/18 15:00 U Sm Round Cell (Auto) Cancelled 12/26/18 15:00 Urine Crystals (Auto) Cancelled 12/26/18 15:00 Urine Bacteria (Auto) Cancelled 12/26/18 15:00 Urine Yeast (Auto) Cancelled 12/26/18 15:00 RPR Titer Nonreactive (NONREACTIVE) 12/26/18 15:00 lab noted Assessment: 12/27/18 11:00 alcohol withdrawal sx Plan: continue detox
[2018-12-27] MEDS: CYCLOBENZAPRINE HCL 10 MG TABLET (FP) PO PRN ×2 (17:30→22:48)
[2018-12-27] MEDS: THIAMINE HCL 100 MG TABLET (FP) PO SCH (22:37)
[2018-12-27] MEDS: traZODone HCL 50 MG TABLET (FP) PO SCH (22:38)
[2018-12-27] MEDS: MELATONIN 5 MG TABLETS PO PRN (22:38)
[2018-12-28] MEDS: chlordiazePOXIDE HCL 25 MG CAPSULE PO SCH ×2 (05:41→10:44)
[2018-12-28] MEDS: SERTRALINE HCL 50 MG TABLET (FP) PO SCH (10:44)
[2018-12-28] MEDS: PRENATAL VITAMINS W/ FOLIC ACID TABLET (FP) PO SCH (10:44)
--- NOTE | 2018-12-28 11:21 | PN ---
S CIWA - CIWA Score Nausea/Vomitin-Mild Nausea/No Vomiting Muscle Tremors: 1-None Visible, but [place] Anxiety: 1-Mildly Anxious Agitation: 1-Slight > Activity Paroxysmal Sweats: 1-Minimal Palms Moist Orientation: 0-Oriented Tacttile Disturbances: 0-None Auditory Disturbances: 0-None Visual Disturbances: 0-None Headache: 0-None Present CIWA-Ar Total Score: 5 BHS Progress Note (SOAP) Subjective: pt states doing ok with alcohol detox protocol, no complaints Vital Signs - 24 hr 12/27/18 12/27/18 12/27/18 11:30 12:00 12:30 Temperature Pulse Rate 70 70 72 Respiratory 18 18 20 Rate Blood Pressure 12/27/18 12/27/18 12/27/18 13:00 13:30 14:00 Temperature Pulse Rate 80 78 82 Respiratory 20 20 20 Rate Blood Pressure 12/27/18 12/27/18 12/27/18 14:30 14:43 15:00 Temperature 97.3 F L Pulse Rate 86 74 80 Respiratory 20 20 20 Rate Blood Pressure 128/78 12/27/18 12/27/18 12/27/18 15:30 16:00 17:47 Temperature 96.4 F L Pulse Rate 78 84 81 Respiratory 20 18 18 Rate Blood Pressure 130/89 12/27/18 12/28/18 12/28/18 21:40 00:30 03:30 Temperature 97.0 F L Pulse Rate 65 Respiratory 20 16 18 Rate Blood Pressure 132/83 12/28/18 12/28/18 06:36 09:42 Temperature 96.9 F L 96.3 F L Pulse Rate 55 L 67 Respiratory 16 20 Rate Blood Pressure 115/68 134/78 Laboratory Tests 12/26/18 12/26/18 12/26/18 15:00 15:00 15:00 WBC 9.7 RBC 5.27 Hgb 16.5 Hct 50.3 H MCV 95.4 MCH 31.4 MCHC 32.9 RDW 13.9 Plt Count 276 MPV 8.2 Sodium 140 Potassium 3.8 Chloride 106 Carbon Dioxide 25 Anion Gap 9 BUN 7 Creatinine 0.9 Est GFR (CKD-EPI)AfAm 130.52 Est GFR (CKD-EPI)NonAf 112.62 Random Glucose 93 Calcium 9.0 Total Bilirubin 0.4 AST 21 ALT 21 Alkaline Phosphatase 108 Total Protein 8.2 Albumin 4.6 Urine Color Urine Appearance Urine pH Urine pH (Auto) Ur Specific [place] Specific [place] (Auto) Urine Protein Urine Protein (Auto) Urine Glucose (UA) Glucose (UA)(Auto) Urine Ketones Urine Ketones (Auto) Urine Blood Urine Blood (Auto) Urine Nitrite Urine Nitrite (Auto) Urine Bilirubin Urine Urobilinogen Urine Urobilinogen (Auto) Ur Leukocyte Esterase Leukocyte Esterase (Auto) Urine WBC (Auto) Urine RBC (Auto) Urine Casts (Auto) U Pathogenic Cast Auto U Epithel Cells (Auto) U Sm Round Cell (Auto) Urine Crystals (Auto) Urine Bacteria (Auto) Urine Yeast (Auto) RPR Titer Nonreactive HIV 1&2 Antibody Screen HIV P24 Antigen 12/26/18 12/26/18 12/27/18 15:00 15:11 07:00 WBC RBC Hgb Hct MCV MCH MCHC RDW Plt Count MPV Sodium Potassium Chloride Carbon Dioxide Anion Gap BUN Creatinine Est GFR (CKD-EPI)AfAm Est GFR (CKD-EPI)NonAf Random Glucose Calcium Total Bilirubin AST ALT Alkaline Phosphatase Total Protein Albumin Urine Color Cancelled Yellow Urine Appearance Cancelled Clear Urine pH Cancelled Urine pH (Auto) 6.0 Ur Specific [place] Cancelled Specific [place] (Auto) <= 1.005 L Urine Protein Cancelled Urine Protein (Auto) Negative Urine Glucose (UA) Cancelled Glucose (UA)(Auto) Negative Urine Ketones Cancelled Urine Ketones (Auto) Negative Urine Blood Cancelled Urine Blood (Auto) Negative Urine Nitrite Cancelled Urine Nitrite (Auto) Negative Urine Bilirubin Cancelled Negative Urine Urobilinogen Cancelled Urine Urobilinogen (Auto) 0.2 Ur Leukocyte Esterase Cancelled Leukocyte Esterase (Auto) Negative Urine WBC (Auto) Cancelled Urine RBC (Auto) Cancelled Urine Casts (Auto) Cancelled U Pathogenic Cast Auto Cancelled U Epithel Cells (Auto) Cancelled U Sm Round Cell (Auto) Cancelled Urine Crystals (Auto) Cancelled Urine Bacteria (Auto) Cancelled Urine Yeast (Auto) Cancelled RPR Titer HIV 1&2 Antibody Screen Negative HIV P24 Antigen Negative a/p: alcohol detox protocol: pt doing well, f/u with counselor re discharge planning
[2018-12-28] MEDS ORDERED: chlordiazePOXIDE HCL 10 MG CAPSULE PO PRN (17:00)
[2018-12-28] MEDS: chlordiazePOXIDE HCL 10 MG CAPSULE PO SCH ×2 (17:27→22:10)
[2018-12-28] MEDS: THIAMINE HCL 100 MG TABLET (FP) PO SCH (22:09)
[2018-12-28] MEDS: CYCLOBENZAPRINE HCL 10 MG TABLET (FP) PO PRN (22:09)
[2018-12-28] MEDS: traZODone HCL 50 MG TABLET (FP) PO SCH (22:10)
[2018-12-28] MEDS: MELATONIN 5 MG TABLETS PO PRN (22:11)
[2018-12-29] MEDS: chlordiazePOXIDE HCL 10 MG CAPSULE PO SCH (05:37)
[2018-12-29] MEDS: PRENATAL VITAMINS W/ FOLIC ACID TABLET (FP) PO SCH (09:16)
[2018-12-29 09:43] VITALS: BP 121/77; PULSE 76; TEMP 96.4
--- NOTE | 2018-12-29 14:39 | DS ---
[facility] Detox Discharge Summary Admission Date: 12/26/18 Discharge Date: 12/29/18 - History Present History: Alcohol Dependence, Cannabis Dependence, Cocaine Dependence Additional Comments: PT DECLINED TO CONTINUE WITH DETOX. PT REPORTS HE HAS OWN CD AFTERCARE SET UP AND HAS PRIMARY CARE/PSYCHIATRIC CARE WITH [place] [facility]. PT IS ALERT O X 3. DENIES S/H/I. Pertinent Past History: PLEASE SEE DX BELOW - Physical Exam Results Vital Signs: Vital Signs Temperature 96.4 F L 12/29/18 09:42 Pulse Rate 76 12/29/18 09:42 Respiratory Rate 16 12/29/18 09:42 Blood Pressure 121/77 12/29/18 09:42 O2 Sat by Pulse Oximetry (%) Pertinent Admission Physical Exam Findings: WITHDRAWAL SX Laboratory Tests 12/26/18 12/26/18 12/26/18 15:00 15:00 15:00 WBC 9.7 RBC 5.27 Hgb 16.5 Hct 50.3 H MCV 95.4 MCH 31.4 MCHC 32.9 RDW 13.9 Plt Count 276 MPV 8.2 Sodium 140 Potassium 3.8 Chloride 106 Carbon Dioxide 25 Anion Gap 9 BUN 7 Creatinine 0.9 Est GFR (CKD-EPI)AfAm 130.52 Est GFR (CKD-EPI)NonAf 112.62 Random Glucose 93 Calcium 9.0 Total Bilirubin 0.4 AST 21 ALT 21 Alkaline Phosphatase 108 Total Protein 8.2 Albumin 4.6 Urine Color Urine Appearance Urine pH Urine pH (Auto) Ur Specific [place] Specific [place] (Auto) Urine Protein Urine Protein (Auto) Urine Glucose (UA) Glucose (UA)(Auto) Urine Ketones Urine Ketones (Auto) Urine Blood Urine Blood (Auto) Urine Nitrite Urine Nitrite (Auto) Urine Bilirubin Urine Urobilinogen Urine Urobilinogen (Auto) Ur Leukocyte Esterase Leukocyte Esterase (Auto) Urine WBC (Auto) Urine RBC (Auto) Urine Casts (Auto) U Pathogenic Cast Auto U Epithel Cells (Auto) U Sm Round Cell (Auto) Urine Crystals (Auto) Urine Bacteria (Auto) Urine Yeast (Auto) RPR Titer Nonreactive HIV 1&2 Antibody Screen HIV P24 Antigen 12/26/18 12/26/18 12/27/18 15:00 15:11 07:00 WBC RBC Hgb Hct MCV MCH MCHC RDW Plt Count MPV Sodium Potassium Chloride Carbon Dioxide Anion Gap BUN Creatinine Est GFR (CKD-EPI)AfAm Est GFR (CKD-EPI)NonAf Random Glucose Calcium Total Bilirubin AST ALT Alkaline Phosphatase Total Protein Albumin Urine Color Cancelled Yellow Urine Appearance Cancelled Clear Urine pH Cancelled Urine pH (Auto) 6.0 Ur Specific [place] Cancelled Specific [place] (Auto) <= 1.005 L Urine Protein Cancelled Urine Protein (Auto) Negative Urine Glucose (UA) Cancelled Glucose (UA)(Auto) Negative Urine Ketones Cancelled Urine Ketones (Auto) Negative Urine Blood Cancelled Urine Blood (Auto) Negative Urine Nitrite Cancelled Urine Nitrite (Auto) Negative Urine Bilirubin Cancelled Negative Urine Urobilinogen Cancelled Urine Urobilinogen (Auto) 0.2 Ur Leukocyte Esterase Cancelled Leukocyte Esterase (Auto) Negative Urine WBC (Auto) Cancelled Urine RBC (Auto) Cancelled Urine Casts (Auto) Cancelled U Pathogenic Cast Auto Cancelled U Epithel Cells (Auto) Cancelled U Sm Round Cell (Auto) Cancelled Urine Crystals (Auto) Cancelled Urine Bacteria (Auto) Cancelled Urine Yeast (Auto) Cancelled RPR Titer HIV 1&2 Antibody Screen Negative HIV P24 Antigen Negative UDS +SUB- SUBOXONE. - Treatment Hospital Course: Discharged Condition Good - Medication Discharge Medications: Ambulatory Orders Cyclobenzaprine HCl [Flexeril -] 10 mg PO TID PRN #60 tablet 06/21/18 Zolpidem Tartrate [Ambien] 10 mg PO HS 06/21/18 Oxycodone HCl/Acetaminophen [Oxycodone-Acetaminophen 10-325] 1 each PO DAILY 04/01 Sertraline HCl [Zoloft -] 50 mg PO DAILY 12/26/18 traZODone HCL [Trazodone HCl] 100 mg PO HS 12/26/18 - Diagnosis (1) Alcohol dependence with uncomplicated withdrawal Status: Acute (2) Nicotine dependence Status: Acute Qualifiers: Nicotine product type: cigarettes Substance use status: in withdrawal Qualified Code(s): F17.213 - Nicotine dependence, cigarettes, with withdrawal (3) Weight loss Status: Acute (4) Hx of seizure disorder Status: Suspected (5) Cannabis dependence, uncomplicated Status: Acute (6) Cocaine dependence Status: Acute Qualifiers: Substance use status: uncomplicated Qualified Code(s): F14.20 - Cocaine dependence, uncomplicated - AMA Did Patient Leave Against Medical Advice: Yes (AMA)
[2018-12-29] MEDS ORDERED: chlordiazePOXIDE HCL 10 MG CAPSULE PO SCH (17:00)
== END 2018-12-29 09:22 | disposition left against medical advice (07) | DRG 770 ==
LOC: YASAS 10:48 → Y6N 15:05 → Y3N 15:18
PROVIDERS: ADMIT Surgery; ATTEND Surgery
PROC: HZ2ZZZZ Detoxification Services for Substance Abuse Treatment (ICD-10-PCS; principal; 2018-12-26)
DX: F10.230 Alcohol dependence with withdrawal, uncomplicated (principal); F14.20 Cocaine dependence, uncomplicated; F12.20 Cannabis dependence, uncomplicated; F17.213 Nicotine dependence, cigarettes, with withdrawal; F19.282 Other psychoactive substance dependence with psychoactive substance-induced sleep disorder; F19.24 Other psychoactive substance dependence with psychoactive substance-induced mood disorder; F51.05 Insomnia due to other mental disorder; F32.9 Major depressive disorder, single episode, unspecified; E86.0 Dehydration; R63.4 Abnormal weight loss; Z68.27 Body mass index [BMI] 27.0-27.9, adult; Z86.69 Personal history of other diseases of the nervous system and sense organs; Z91.013 Allergy to seafood; Z88.8 Allergy status to other drugs, medicaments and biological substances
CPT/HCPCS: 36415; 80053; 81003; 85027; 86593; 87389

== ENCOUNTER 2019-01-23 08:51 | Inpatient (IN) | payer OTHER ==
[2019-01-23 10:44] VITALS: BMI 27.8
--- NOTE | 2019-01-23 11:31 | HP ---
CIWA Score Nausea/Vomitin Muscle Tremors: 2 Anxiety: 2 Agitation: 2 Paroxysmal Sweats: 1-Minimal Palms Moist Orientation: 0-Oriented Tacttile Disturbances: 1-Very Mild Itch/Numbness Auditory Disturbances: 1-Very Mild Visual Disturbances: 0-None Headache: 2-Mild CIWA-Ar Total Score: 13 - Admission Criteria [facility] Guidelines: Admission for Medically Managed Detox: Requires at least one of the followin. CIWA greater than 12 2. Seizures within the past 24 hours 3. Delirium tremens within the past 24 hours 4. Hallucinations within the past 24 hours 5. Acute intervention needed for co occurring medical disorder 6. Acute intervention needed for co occurring psychiatric disorder 7. Severe withdrawal that cannot be handled at a lower level of care (continued vomiting, continued diarrhea, abnormal vital signs) requiring intravenous medication and/or fluids 8. Admission ROS [facility] - HPI Chief Complaint: i need help to stop drinking alcohol,cocaine and marijuana Allergies/Adverse Reactions: Allergies Allergy/AdvReac Type Severity Reaction Status Date / Time Fish Containing Products Allergy Severe Difficulty Verified 01/23/19 10:33 Breathing tramadol Allergy Severe Itching Verified 01/23/19 10:33 History of Present Illness: this 33 years old male with alcohol,cocaine and marijuana dependence,seeking detox,withdrawal symptom, multiple admissions in detox, last detox [facility] 12/26/18 to 12/29/18 but keep relapsing nicotine dependence 1/2 pack,does not want nicotine replacement longest sobriety 4 years major depression disorder taking zoloft 50 mgspo daiky insomnia on trazadone 100 mgs po hs plan for out patient program,aa or na meeting Exam Limitations: No Limitations - Ebola screening Have you traveled outside of the country in the last 21 days: No (N) Have you had contact with anyone from an Ebola affected area: No Do you have a fever: No - Review of Systems Constitutional: Loss of Appetite, Malaise, Night Sweats, Changes in sleep, Weakness, Unintentional Wgt. Loss EENT: reports: Nose Congestion Respiratory: reports: No Symptoms reported Cardiac: reports: No Symptoms Reported GI: reports: Nausea, Poor Appetite, Abdominal cramping : reports: No Symptoms Reported Musculoskeletal: reports: Back Pain, Muscle Pain Integumentary: reports: Dryness Neuro: reports: Headache, Tremors Endocrine: reports: No Symptoms Reported Hematology: reports: No Symptoms Reported Psychiatric: reports: No Sypmtoms Reported, Judgement Intact, Mood/Affect Appropiate, Orientated x3, Depressed (major depressive disorder,insomnia), other Patient History - Patient Medical History Hx Anemia: No Hx Asthma: No Hx Chronic Obstructive Pulmonary Disease (COPD): No Hx Cancer: No Hx Cardiac Disorders: No Hx Congestive Heart Failure: No Hx Hypertension: No Hx Hypercholesterolemia: No Hx Pacemaker: No HX Cerebrovascular Accident: No Hx Seizures: Yes (alcohol related-last episode was in 2014) Hx Dementia: No Hx Diabetes: No Hx Gastrointestinal Disorders: No Hx Liver Disease: No Hx Genitourinary Disorders: No Hx Sexually Transmitted Disorders: No Hx Renal Disease (ESRD): No Hx Thyroid Disease: No Hx Human Immunodeficiency Virus (HIV): No (NEGATIVE 2017 ) Hx Hepatitis C: No Hx Depression: Yes Hx Suicide Attempt: No Hx Bipolar Disorder: No Hx Schizophrenia: No Other Medical History: no suicidal,no homicidal - Patient Surgical History Past Surgical History: Yes Hx Neurologic Surgery: No Hx Cataract Extraction: No Hx Cardiac Surgery: No Hx Lung Surgery: No Hx Breast Surgery: No Hx Breast Biopsy: No Hx Abdominal Surgery: No Hx Appendectomy: No Hx Cholecystectomy: No Hx Genitourinary Surgery: No Hx Orthopedic Surgery: Yes (fx, left ankle in 2016) Anesthesia Reaction: No - PPD History Previous Implant?: Yes Documented Results: Negative w/proof Implanted On Prior R Admission?: Yes Date: 04/01/18 Results: 0 mm PPD to be Administered?: No - Smoking Cessation Smoking history: Current every day smoker Have you smoked in the past 12 months: Yes Aproximately how many cigarettes per day: 10 Cigars Per Day: 0 Hx Chewing Tobacco Use: No Initiated information on smoking cessation: Yes 'Breaking Loose' booklet given: 01/23/19 - Substance & Tx. History Hx Alcohol Use: Yes Hx Substance Use: Yes Substance Use Type: Alcohol, Cocaine, Marijuana - Substances abused Alcohol Substance route: Oral Amount used: 2 pint vodka and 1 pack of beer 24 ozs Age of first use: 18 Date of last use: 01/23/19 Cocaine Substance route: Inhalation Frequency: 3-6 times per week Amount used: 20$ Age of first use: 23 Date of last use: 01/23/19 Marijuana/Hashish Substance route: Smoking Frequency: 1-3 times last 30 days Amount used: 10$ Age of first use: 21 Date of last use: 01/16/19 Other Other (specify): PERCOCET Substance route: Oral Frequency: Daily Amount used: 2-3 PILLS DAILY Age of first use: 31 Date of last use: 01/20/19 Family Disease History - Family Disease History Family Disease History: Diabetes: Father (HTN), Other: Father Admission Physical Exam S - Vital Signs Vital Signs: Vital Signs - 24 hr 01/23/19 10:38 Temperature 98.0 F Pulse Rate 97 H Respiratory 20 Rate Blood Pressure 133/78 - Physical General Appearance: Yes: Moderate Distress, Tremorous, Irritable, Sweating, Anxious HEENTM: Yes: Normal ENT Inspection, SHADIA, Pharynx Normal Respiratory: Yes: Lungs Clear, Normal Breath Sounds, No Respiratory Distress Neck: Yes: Within Normal Limits, Supple, Trachea in good position Breast: Yes: Within Normal Limits Cardiology: Yes: Within Normal Limits, Regular Rhythm, Regular Rate, S1, S2 Abdominal: Yes: Within Normal Limits, Normal Bowel Sounds, Non Tender, Flat, Soft Genitourinary: Yes: Within Normal Limits Back: Yes: Muscle Spasm Musculoskeletal: Yes: full range of Motion, Back pain, Muscle Pain Extremities: Yes: Tremors 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 NML intact, Motor Strength 5/5, Normal Mood/Affect Integumentary: Yes: Dry Lymphatic: Yes: Within Normal Limits - Diagnostic (1) Alcohol dependence with uncomplicated intoxication Current Visit: No Status: Acute (2) Alcohol dependence with uncomplicated withdrawal Current Visit: No Status: Acute (3) Cannabis abuse Current Visit: No Status: Acute (4) Cocaine dependence Current Visit: No Status: Acute Qualifiers: Substance use status: uncomplicated Qualified Code(s): F14.20 - Cocaine dependence, uncomplicated (5) Dehydration Current Visit: No Status: Acute (6) Weight loss Current Visit: No Status: Acute (7) GERD (gastroesophageal reflux disease) Current Visit: No Status: Chronic Qualifiers: Esophagitis presence: without esophagitis Qualified Code(s): K21.9 - Gastro -esophageal reflux disease without esophagitis (8) HTN (hypertension) Current Visit: No Status: Chronic Qualifiers: Hypertension type: unspecified Qualified Code(s): I10 - Essential (primary ) hypertension (9) History of fracture of left ankle Current Visit: No Status: Chronic (10) Seizure Current Visit: No Status: Chronic (11) Low back pain Current Visit: Yes Status: Acute Cleared for Admission [facility] - Detox or Rehab [facility] Level of Care: Medically Managed Detox Regimen/Protocol: Librium Breathalyzer - Breathalyzer Breathalyzer: 0.138 Urine Drug Screen - Test Device Lot number: [id number] Expiration date: 10/11/20 - Control Is test valid?: Yes - Results Drug screen NEGATIVE: No Urine drug screen results: THC-Marijuana, JULIANO-Cocaine Inpatient Rehab Admission - Rehab Decision to Admit Inpatient rehab admission?: No
[2019-01-23] MEDS ORDERED: MENTHOL/PHENOL 1 EACH UD MM PRN (11:38)
[2019-01-23] MEDS ORDERED: ACETAMINOPHEN 325 MG TABLET (FP) PO PRN ×2 (11:38)
[2019-01-23] MEDS ORDERED: chlordiazePOXIDE HCL 25 MG CAPSULE PO PRN (11:38)
[2019-01-23] MEDS ORDERED: METHOCARBAMOL 500 MG TABLET PO PRN (11:38)
[2019-01-23] MEDS ORDERED: BISMUTH SUBSALICYLATE 262 MG/15 ML BTL PO PRN (11:38)
[2019-01-23] MEDS ORDERED: hydrOXYzine PAMOATE 25 MG CAPSULE (FP) PO PRN (11:38)
[2019-01-23] MEDS ORDERED: MAGNESIUM CITRATE 300 ML BOTTLE PO PRN (11:38)
[2019-01-23] MEDS ORDERED: MELATONIN 5 MG TABLETS PO PRN (11:38)
[2019-01-23] MEDS ORDERED: MAGNESIUM HYDROX 2400MG/30ML ORAL SUSPENSION 30 ML CUP PO PRN (11:38)
[2019-01-23] MEDS ORDERED: MAG HYDROX/AL HYDROX/SIMETH 30 ML UNIT-DOSE CUP PO PRN (11:38)
[2019-01-23] MEDS ORDERED: IBUPROFEN 400 MG TABLET (FP) PO PRN (11:38)
[2019-01-23] MEDS ORDERED: traZODone HCL 100 MG TABLET (FP) PO PRN (11:42)
[2019-01-23] MEDS: SERTRALINE HCL 50 MG TABLET (FP) PO SCH (12:41)
[2019-01-23 14:37] LABS: URINE APPEARANCE CLEAR; URINE BILIRUBIN NEGATIVE (NEGATIVE); URINE COLOR YELLOW; URINE GLUCOSE (UA) NEGATIVE (NEGATIVE); URINE KETONE TRACE (NEGATIVE); URINE LEUK ESTERASE NEGATIVE (NEGATIVE); URINE NITRITE NEGATIVE (NEGATIVE); URINE PROTEIN NEGATIVE (NEGATIVE); URINE UROBILINOGEN 0.2 mg/dL (0.2-1.0)
[2019-01-23 14:43] LABS: HEMATOCRIT 47.2 % (35.4-49); HEMOGLOBIN 16.1 GM/dL (11.7-16.9); MCH 32.1 pg (25.7-33.7); MCHC 34.2 g/dl (32.0-35.9); MEAN PLT VOLUME 8.7 fl (7.5-11.1); PLATELET COUNT 294 K/MM3 (134-434); RBC 5.02 M/mm3 (4.00-5.60); RDW 13.5 % (11.9-15.9); WHITE BLOOD COUNT 9.6 K/mm3 (4.0-10.0)
[2019-01-23 14:50] LABS: ALBUMIN 4.6 g/dl (3.4-5.0); BILIRUBIN,TOTAL 0.2 mg/dL (0.2-1); BLOOD UREA NITROGEN 6.3 mg/dL (7-18); CALCIUM 9.1 mg/dL (8.5-10.1); CREATININE 0.9 mg/dL (0.55-1.3); POTASSIUM 3.7 mmol/L (3.5-5.1); TOT PROT 8.2 g/dl (6.4-8.2)
[2019-01-23] MEDS: chlordiazePOXIDE HCL 25 MG CAPSULE PO SCH ×2 (17:36→22:17)
[2019-01-23] MEDS: THIAMINE HCL 100 MG TABLET (FP) PO SCH (22:14)
[2019-01-23] MEDS: CYCLOBENZAPRINE HCL 10 MG TABLET (FP) PO PRN (22:17)
[2019-01-24] MEDS: chlordiazePOXIDE HCL 25 MG CAPSULE PO SCH ×4 (05:53→22:22)
[2019-01-24] MEDS: SERTRALINE HCL 50 MG TABLET (FP) PO SCH (10:47)
[2019-01-24] MEDS: PRENATAL VITAMINS W/ FOLIC ACID TABLET (FP) PO SCH (10:47)
--- NOTE | 2019-01-24 11:14 | PN ---
[facility] CIWA - CIWA Score Nausea/Vomitin-No Nausea/No Vomiting Muscle Tremors: 3 Anxiety: 2 Agitation: 3 Paroxysmal Sweats: 2 Orientation: 0-Oriented Tacttile Disturbances: 0-None Auditory Disturbances: 0-None Visual Disturbances: 0-None Headache: 0-None Present CIWA-Ar Total Score: 10 S Progress Note (SOAP) Subjective: nausea sweats interrupted sleep body aches Objective: 01/24/19 11:14 Vital Signs Temperature 97.2 F L 01/24/19 09:29 Pulse Rate 74 01/24/19 09:29 Respiratory Rate 16 01/24/19 09:29 Blood Pressure 131/86 01/24/19 09:29 O2 Sat by Pulse Oximetry (%) Laboratory Tests 01/23/19 01/23/19 01/23/19 11:45 11:45 11:45 WBC 9.6 RBC 5.02 Hgb 16.1 Hct 47.2 MCV 94.0 MCH 32.1 MCHC 34.2 RDW 13.5 Plt Count 294 MPV 8.7 Sodium 139 Potassium 3.7 Chloride 106 Carbon Dioxide 30 Anion Gap 3 L BUN 6.3 L Creatinine 0.9 Est GFR (CKD-EPI)AfAm 130.52 Est GFR (CKD-EPI)NonAf 112.62 Random Glucose 85 Calcium 9.1 Total Bilirubin 0.2 AST 18 ALT 20 Alkaline Phosphatase 96 Total Protein 8.2 Albumin 4.6 Urine Color Yellow Urine Appearance Clear Urine pH 5.0 Ur Specific [place] 1.022 Urine Protein Negative Urine Glucose (UA) Negative Urine Ketones Trace H Urine Blood Negative Urine Nitrite Negative Urine Bilirubin Negative Urine Urobilinogen 0.2 Ur Leukocyte Esterase Negative RPR Titer HIV 1&2 Antibody Screen HIV P24 Antigen 01/23/19 01/23/19 11:45 11:45 WBC RBC Hgb Hct MCV MCH MCHC RDW Plt Count MPV Sodium Potassium Chloride Carbon Dioxide Anion Gap BUN Creatinine Est GFR (CKD-EPI)AfAm Est GFR (CKD-EPI)NonAf Random Glucose Calcium Total Bilirubin AST ALT Alkaline Phosphatase Total Protein Albumin Urine Color Urine Appearance Urine pH Ur Specific [place] Urine Protein Urine Glucose (UA) Urine Ketones Urine Blood Urine Nitrite Urine Bilirubin Urine Urobilinogen Ur Leukocyte Esterase RPR Titer Nonreactive HIV 1&2 Antibody Screen Negative HIV P24 Antigen Negative labs noted [id number] ambulating no acute distress Assessment: 01/24/19 11:14 withdrawal sx Plan: continue detox increase fluids
--- NOTE | 2019-01-24 12:04 | CONSULT ---
[facility] Psychiatric Consult - Data Date of interview: 01/24/19 Admission source: [facility] Identifying data: Patient is a 33 year old single male, father of four, domiciled, and is supported [facility]. This is one of multiple admissions for patient. Patient admitted to for alcohol, marijuana, and cocaine dependence. Substance Abuse History: Smoking Cessation. Smoking history: Current every day smoker. Have you smoked in the past 12 months: Yes. Aproximately how many cigarettes per day: 10. Cigars Per Day: 0. Hx Chewing Tobacco Use: No. Initiated information on smoking cessation: Yes. 'Breaking Loose' booklet given : 01/23/19. - Substance & Tx. History. Hx Alcohol Use: Yes. Hx Substance Use : Yes. Substance Use Type: Alcohol, Cocaine, Marijuana. - Substances abused. Alcohol. Substance route: Oral. Amount used: 2 pint vodka and 1 pack of beer 24 ozs. Age of first use: 18. Date of last use: 01/23/19. Cocaine. Substance route: Inhalation. Frequency: 3-6 times per week. Amount used: 20$. Age of first use: 23. Date of last use: 01/23/19. Marijuana/Hashish. Substance route: Smoking. Frequency: 1-3 times last 30 days. Amount used: 10$ . Age of first use: 21. Date of last use: 01/16/19. Other. Other (specify ): PERCOCET. Substance route: Oral. Frequency: Daily. Amount used: 2-3 PILLS DAILY. Age of first use: 31. Date of last use: 01/20/19 Medical History: Seizures (alcohol related - 2014), fx, left ankle in 2016 Psychiatric History: Patient reports h/o two psychiatric hospitalizations, most recently 6 weeks ago at [facility] after experiencing an " emotional breakdown." States he was diagnosed with MDD and prescribed zoloft 50mg. Mr. Ramirez denies h/o suicide attempt. He denies outpatient psychiatric treatment but states that he receives zoloft from his primary care physician. At present patient reports stable mood but is experiencing difficulty sleeping. Physical/Sexual Abuse/Trauma History: denies. Mental Status Exam - Mental Status Exam Alert and Oriented to: Time, Place, Person Cognitive Function: Good Patient Appearance: Well Groomed Mood: Withdrawn Affect: Appropriate Patient Behavior: Cooperative Speech Pattern: Appropriate Voice Loudness: Normal Thought Process: Goal Oriented Thought Disorder: Not Present Hallucinations: Denies Suicidal Ideation: Denies Homicidal Ideation: Denies Insight/Judgement: Poor Sleep: Poorly Appetite: Fair Muscle strength/Tone: Normal Gait/Station: Normal Psychiatric Findings - Problem List ([place] 1, 2,3) (1) Alcohol dependence with uncomplicated withdrawal Current Visit: Yes Status: Acute (2) Cannabis dependence Current Visit: Yes Status: Acute (3) Cocaine dependence Current Visit: Yes Status: Acute Qualifiers: Substance use status: uncomplicated Qualified Code(s): F14.20 - Cocaine dependence, uncomplicated (4) Substance induced mood disorder Current Visit: Yes Status: Acute (5) Substance-induced sleep disorder Current Visit: Yes Status: Acute - Initial Treatment Plan Initial Treatment Plan: Psychoeducation provided. Detoxification in progress. Will continue zoloft 50mg daily and d/c Trazodone 100mg prn and ordered Trazodone 100mg HS. Benefits and side effects discussed. Verbal consent given.
[2019-01-24] MEDS: THIAMINE HCL 100 MG TABLET (FP) PO SCH (22:22)
[2019-01-24] MEDS: traZODone HCL 100 MG TABLET (FP) PO SCH (22:22)
[2019-01-24] MEDS: CYCLOBENZAPRINE HCL 10 MG TABLET (FP) PO PRN (22:24)
[2019-01-25] MEDS: chlordiazePOXIDE HCL 25 MG CAPSULE PO SCH ×2 (05:59→10:10)
[2019-01-25] MEDS: CYCLOBENZAPRINE HCL 10 MG TABLET (FP) PO PRN ×2 (06:00→22:28)
[2019-01-25] MEDS: PRENATAL VITAMINS W/ FOLIC ACID TABLET (FP) PO SCH (10:10)
[2019-01-25] MEDS: SERTRALINE HCL 50 MG TABLET (FP) PO SCH (10:10)
--- NOTE | 2019-01-25 12:36 | PN ---
S CIWA - CIWA Score Nausea/Vomitin Muscle Tremors: 2 Anxiety: 1-Mildly Anxious Agitation: 1-Slight > Activity Paroxysmal Sweats: 2 Orientation: 0-Oriented Tacttile Disturbances: 1-Very Mild Itch/Numbness Auditory Disturbances: 0-None Visual Disturbances: 0-None Headache: 0-None Present CIWA-Ar Total Score: 9 [facility] Progress Note (SOAP) Subjective: interrupted sleep, sweats, nausea, diarrhea, slight tremors Objective: 01/25/19 12:34 Vital Signs Temperature 98.9 F 01/25/19 09:45 Pulse Rate 68 01/25/19 09:45 Respiratory Rate 18 01/25/19 09:45 Blood Pressure 153/79 01/25/19 09:45 O2 Sat by Pulse Oximetry (%) Laboratory Tests 01/23/19 01/23/19 01/23/19 11:45 11:45 11:45 WBC 9.6 RBC 5.02 Hgb 16.1 Hct 47.2 MCV 94.0 MCH 32.1 MCHC 34.2 RDW 13.5 Plt Count 294 MPV 8.7 Sodium 139 Potassium 3.7 Chloride 106 Carbon Dioxide 30 Anion Gap 3 L BUN 6.3 L Creatinine 0.9 Est GFR (CKD-EPI)AfAm 130.52 Est GFR (CKD-EPI)NonAf 112.62 Random Glucose 85 Calcium 9.1 Total Bilirubin 0.2 AST 18 ALT 20 Alkaline Phosphatase 96 Total Protein 8.2 Albumin 4.6 Urine Color Yellow Urine Appearance Clear Urine pH 5.0 Ur Specific [place] 1.022 Urine Protein Negative Urine Glucose (UA) Negative Urine Ketones Trace H Urine Blood Negative Urine Nitrite Negative Urine Bilirubin Negative Urine Urobilinogen 0.2 Ur Leukocyte Esterase Negative RPR Titer HIV 1&2 Antibody Screen HIV P24 Antigen 01/23/19 01/23/19 11:45 11:45 WBC RBC Hgb Hct MCV MCH MCHC RDW Plt Count MPV Sodium Potassium Chloride Carbon Dioxide Anion Gap BUN Creatinine Est GFR (CKD-EPI)AfAm Est GFR (CKD-EPI)NonAf Random Glucose Calcium Total Bilirubin AST ALT Alkaline Phosphatase Total Protein Albumin Urine Color Urine Appearance Urine pH Ur Specific [place] Urine Protein Urine Glucose (UA) Urine Ketones Urine Blood Urine Nitrite Urine Bilirubin Urine Urobilinogen Ur Leukocyte Esterase RPR Titer Nonreactive HIV 1&2 Antibody Screen Negative HIV P24 Antigen Negative pt aox3 in nad lying in bed Assessment: 01/25/19 12:35 withdrawal sx's Plan: cont. detox increase fluids vistaril prn
[2019-01-25] MEDS ORDERED: chlordiazePOXIDE HCL 10 MG CAPSULE PO PRN (17:00)
[2019-01-25] MEDS: chlordiazePOXIDE HCL 10 MG CAPSULE PO SCH ×2 (17:40→22:24)
[2019-01-25] MEDS: THIAMINE HCL 100 MG TABLET (FP) PO SCH (22:25)
[2019-01-25] MEDS: traZODone HCL 100 MG TABLET (FP) PO SCH (22:32)
[2019-01-26] MEDS: chlordiazePOXIDE HCL 10 MG CAPSULE PO SCH ×2 (06:32→10:07)
[2019-01-26 06:50] VITALS: BP 104/53; PULSE 57; TEMP 97.3
[2019-01-26] MEDS: PRENATAL VITAMINS W/ FOLIC ACID TABLET (FP) PO SCH (10:07)
[2019-01-26] MEDS: SERTRALINE HCL 50 MG TABLET (FP) PO SCH (10:07)
--- NOTE | 2019-01-26 15:50 | DS ---
[facility] Detox Discharge Summary Admission Date: 01/23/19 Discharge Date: 01/26/19 - History Additional Comments: patient insisting on leaving, states he just wants to leave. In no acute distress Denies any home meds Gait steady, A & O x 3 Vital Signs Temperature 97.3 F L 01/26/19 06:00 Pulse Rate 57 L 01/26/19 06:00 Respiratory Rate 16 01/26/19 06:00 Blood Pressure 104/53 L 01/26/19 06:00 O2 Sat by Pulse Oximetry (%) Patient understands that he is leaving AMA - Physical Exam Results Vital Signs: Vital Signs Temperature 97.3 F L 01/26/19 06:00 Pulse Rate 57 L 01/26/19 06:00 Respiratory Rate 16 01/26/19 06:00 Blood Pressure 104/53 L 01/26/19 06:00 O2 Sat by Pulse Oximetry (%) - Medication Discharge Medications: Ambulatory Orders Sertraline HCl [Zoloft -] 50 mg PO DAILY 12/26/18 traZODone HCL [Trazodone HCl] 100 mg PO HS PRN 12/26/18 - AMA Did Patient Leave Against Medical Advice: Yes
[2019-01-26] MEDS ORDERED: chlordiazePOXIDE HCL 10 MG CAPSULE PO SCH (17:00)
== END 2019-01-26 10:11 | disposition left against medical advice (07) | DRG 770 ==
LOC: YASAS 08:51 → Y6N 11:34
PROVIDERS: ADMIT Surgery; ATTEND Surgery
PROC: HZ2ZZZZ Detoxification Services for Substance Abuse Treatment (ICD-10-PCS; principal; 2019-01-23)
DX: F10.230 Alcohol dependence with withdrawal, uncomplicated (principal); F10.220 Alcohol dependence with intoxication, uncomplicated; F14.20 Cocaine dependence, uncomplicated; F12.20 Cannabis dependence, uncomplicated; F17.210 Nicotine dependence, cigarettes, uncomplicated; F19.24 Other psychoactive substance dependence with psychoactive substance-induced mood disorder; F19.282 Other psychoactive substance dependence with psychoactive substance-induced sleep disorder; E86.0 Dehydration; R63.4 Abnormal weight loss; K21.9 Gastro-esophageal reflux disease without esophagitis; I10 Essential (primary) hypertension; M54.5 Low back pain; Z88.8 Allergy status to other drugs, medicaments and biological substances; Z86.69 Personal history of other diseases of the nervous system and sense organs; Z91.013 Allergy to seafood
CPT/HCPCS: 36415; 80053; 81003; 85027; 86593; 87389

== ENCOUNTER 2019-03-18 08:37 | Inpatient (IN) | payer OTHER | END 2019-03-23 08:49 | disposition home or self-care (01) | LOC: YASAS 08:37 → Y3N 10:13 ==

== ENCOUNTER 2019-07-02 09:22 | Inpatient (IN) | payer OTHER ==
--- NOTE | 2019-07-02 10:24 | HP ---
COWS - Scale Resting Pulse: 1= ID [id number] Sweatin= No chills or Flushing Restless Observation: 1= Difficult to Sit Still Pupil Size: 0= Normal to Room Light Bone or Joint Aches: 0= None Runny Nose/ Eye Tearin= None GI Upset > 30mins: 0= None Tremor Observation: 0= None Yawning Observation: 0= None Anxiety or Irritability: 0= None Goose Flesh Skin: 0=Smooth Skin COWS Score: 2 CIWA Score Nausea/Vomitin-Mild Nausea/No Vomiting Muscle Tremors: None Anxiety: 0-No Anxiety, at Ease Agitation: 1-Slight > Activity Paroxysmal Sweats: No Perspiration Orientation: 0-Oriented Tacttile Disturbances: 0-None Auditory Disturbances: 0-None Visual Disturbances: 0-None Headache: 0-None Present CIWA-Ar Total Score: 2 - Admission Criteria OASAS Guidelines: Admission for Medically Managed Detox: Requires at least one of the followin. CIWA greater than 12 2. Seizures within the past 24 hours 3. Delirium tremens within the past 24 hours 4. Hallucinations within the past 24 hours 5. Acute intervention needed for co occurring medical disorder 6. Acute intervention needed for co occurring psychiatric disorder 7. Severe withdrawal that cannot be handled at a lower level of care (continued vomiting, continued diarrhea, abnormal vital signs) requiring intravenous medication and/or fluids 8. Admitting History and Physical - Smoking History Smoking history: Current every day smoker Have you smoked in the past 12 months: Yes Aproximately how many cigarettes per day: 10 - Alcohol/Substance Use Hx Alcohol Use: Yes Admission [facility] Allergies/Adverse Reactions: Allergies Allergy/AdvReac Type Severity Reaction Status Date / Time Fish Containing Products Allergy Severe Difficulty Verified 07/02/19 09:30 Breathing tramadol Allergy Severe Itching Verified 07/02/19 09:30 History of Present Illness: This report was requested by: Lazara Art | Reference #: [id number] Others' Prescriptions Patient Name: Ronald Ramirez Date: 1985 Address: [address] [place] [address] Sex: Male Rx Written Rx Dispensed Drug Quantity Days Supply Prescriber Name 01/29/2019 01/29/2019 oxycodone-acetaminophen 10-325 mg tab 5 2 Narinder Castro MD 01/11/2019 01/15/2019 oxycodone-acetaminophen 10-325 mg tab 4 7 Timur GarrisonTyshawn 12/15/2018 12/17/2018 oxycodone-acetaminophen 10-325 mg tab 30 30 Rodo Mena C 11/15/2018 11/15/2018 oxycodone-acetaminophen 10-325 mg tab 30 30 Knight Gloria 10/15/2018 10/15/2018 oxycodone-acetaminophen 10-325 mg tab 30 30 Aidan Yepez 09/15/2018 09/15/2018 oxycodone-acetaminophen 10-325 mg tab 30 30 Rodo Mena C 07/23/2018 07/23/2018 oxycodone-acetaminophen 10-325 mg tab 60 30 Antonia Gloria etoh : since age 18 , heavily since age 24 , currently 3 pints/day and " some beers " , latest use today , reports tremors , + seizures most recently 4 years ago 2/2 cocaine / etoh use . blackouts : frequent Cocaine : since age 24. 5 gm/ wk via inhalation denies IV use cannabis : denies current use , latest use 2 mo ago . Nicotine : 1/2-1 ppd since age 18 heroin sine this year 2-3 bags every 3-4 days , denies w/d symptoms , reports OD 2 weeks ago , Narcan by EMS , latest use 2 days ago , claims used morphine today 1 pill via inhalation , denies symptoms at this time k2 - 2 months ago completed rehab [facility] 2 mo ago , relapsed after d/c PMHX: chronic low back pain - herniated disc PsychHx: Insomnia, anxiety , depression. Patient Name: Ronald Ramirez Date: 1985 Address: [address] [place] [address] Sex: Male Rx Written Rx Dispensed Drug Quantity Days Supply Prescriber Name 11/15/2018 11/15/2018 oxycodone-acetaminophen 10-325 mg tab 30 30 Gloria Knight 10/15/2018 10/15/2018 oxycodone-acetaminophen 10-325 mg tab 30 30 Aidan Yepez 09/15/2018 09/15/2018 oxycodone-acetaminophen 10-325 mg tab 30 30 Rodo Mena C 07/23/2018 07/23/2018 oxycodone-acetaminophen 10-325 mg tab 60 30 Gloria Knight 06/18/2018 06/18/2018 oxycodone-acetaminophen 10-325 mg tab 30 30 Gloria Knight 05/21/2018 05/21/2018 oxycodone-acetaminophen 10-325 mg tab 30 30 Aidan Yepez 04/23/2018 04/23/2018 oxycodone-acetaminophen 10-325 mg tab 30 30 Timur Garrison 03/19/2018 03/22/2018 oxycodone-acetaminophen 10-325 mg tab 30 30 Loki Carmen) 02/22/2018 02/22/2018 oxycodone-acetaminophen 10-325 mg tab 30 30 Loki Carmen) 01/22/2018 01/22/2018 oxycodone-acetaminophen 10-325 mg tab 30 30 Loki Carmen) 11/20/2017 11/20/2017 oxycodone-acetaminophen 10-325 mg tab 30 30 Timur Garrison Patient Name: Ronald Ramirez Date: 1985 Address: [address] [place] [address] Sex: Male Rx Written Rx Dispensed Drug Quantity Days Supply Prescriber Name 11/15/2017 11/22/2017 oxycodone-acetaminophen 5-325 mg tablet 40 10 White, Lazaro Exam Limitations: Clinical Condition, Intoxication - Ebola screening Have you traveled outside of the country in the last 21 days: No Have you had contact with anyone from an Ebola affected area: No Do you have a fever: No - Review of Systems Constitutional: Loss of Appetite, Unintentional Wgt. Loss (claims 15 lbs loss) EENT: reports: Other (glasses bifocals) Respiratory: reports: Other (reports muscle pain with deep inspiration , went to the [facility], told chronic bronchitis and was advised to stop smoking .) Cardiac: reports: No Symptoms Reported GI: reports: See HPI, Poor Appetite : reports: No Symptoms Reported Musculoskeletal: reports: See HPI Integumentary: reports: No Symptoms Reported Neuro: reports: No Symptoms reported Endocrine: reports: No Symptoms Reported Psychiatric: reports: Orientated x3, Agitated Patient History - Patient Medical History Hx Anemia: No Hx Asthma: No Hx Chronic Obstructive Pulmonary Disease (COPD): No Hx Cancer: No Hx Cardiac Disorders: No Hx Congestive Heart Failure: No Hx Hypertension: No Hx Hypercholesterolemia: No Hx Pacemaker: No HX Cerebrovascular Accident: No Hx Seizures: Yes (alcohol related-last episode was in 2017) Hx Dementia: No Hx Diabetes: No Hx Gastrointestinal Disorders: No Hx Liver Disease: No Hx Genitourinary Disorders: No Hx Sexually Transmitted Disorders: No Hx Renal Disease (ESRD): No Hx Thyroid Disease: No Hx Human Immunodeficiency Virus (HIV): No (01/30 negative) Hx Hepatitis C: No Hx Depression: Yes Hx Suicide Attempt: No Hx Bipolar Disorder: No Hx Schizophrenia: No - Patient Surgical History Past Surgical History: Yes Hx Neurologic Surgery: No Hx Cataract Extraction: No Hx Cardiac Surgery: No Hx Lung Surgery: No Hx Breast Surgery: No Hx Breast Biopsy: No Hx Abdominal Surgery: No Hx Appendectomy: No Hx Cholecystectomy: No Hx Genitourinary Surgery: No Hx Orthopedic Surgery: Yes (fx, left ankle in 2015) Anesthesia Reaction: No - PPD History Date: 04/01/18 Results: 0 mm - Smoking Cessation Smoking history: Current every day smoker Have you smoked in the past 12 months: Yes Aproximately how many cigarettes per day: 10 Cigars Per Day: 0 Hx Chewing Tobacco Use: No Initiated information on smoking cessation: Yes 'Breaking Loose' booklet given: 07/02/19 - Substances abused Alcohol Substance route: Oral Amount used: 3 pint vodka and 1 dozen beer 24 ozs Age of first use: 18 Date of last use: 07/02/19 Cocaine Substance route: Inhalation Frequency: Daily Amount used: $100 Age of first use: 23 Date of last use: 06/28/19 Marijuana/Hashish Substance route: Smoking Frequency: 1-3 times last 30 days Amount used: 10$ Age of first use: 21 Date of last use: 03/04/19 Other Other (specify): PERCOCET Substance route: Oral Frequency: Daily Amount used: 2-3 PILLS DAILY Age of first use: 31 Date of last use: 01/20/19 Heroin Substance route: Inhalation Frequency: 1-2 times per week Amount used: $20-40 Age of first use: 33 Date of last use: 06/30/19 Admission Physical Exam [facility] - Vital Signs Vital Signs: Vital Signs - 24 hr 07/02/19 09:29 Temperature 98.2 F Pulse Rate 94 H Respiratory 20 Rate Blood Pressure 131/80 - Physical General Appearance: Yes: Intoxicated HEENTM: Yes: EOMI, Hearing grossly Normal, Normocephalic, Normal Voice Respiratory: Yes: Lungs Clear, Normal Breath Sounds, No Respiratory Distress, No Accessory Muscle Use Neck: Yes: No masses,lesions,Nodules, Trachea in good position Cardiology: Yes: Regular Rhythm, Regular Rate, S1, S2 Abdominal: Yes: Non Tender, Soft Musculoskeletal: Yes: Gait Steady Extremities: Yes: Normal Range of Motion, Non-Tender Neurological: Yes: Fully Oriented, Alert Integumentary: Yes: Warm - Diagnostic (1) Alcohol dependence with uncomplicated intoxication Current Visit: Yes Status: Chronic (2) Nicotine dependence Current Visit: Yes Status: Chronic Qualifiers: Nicotine product type: cigarettes Breathalyzer - Breathalyzer Breathalyzer: 0.138 Urine Drug Screen - Test Device Lot number: [id number] Expiration date: 12/11/20 - Control Is test valid?: Yes - Results Drug screen NEGATIVE: No Urine drug screen results: THC-Marijuana, JULIANO-Cocaine Inpatient Rehab Admission - Rehab Decision to Admit Inpatient rehab admission?: No
[2019-07-02 10:29] VITALS: BMI 27.3
[2019-07-02] MEDS ORDERED: CYCLOBENZAPRINE HCL 5 MG TABLET PO PRN (10:40)
[2019-07-02] MEDS ORDERED: IBUPROFEN 400 MG TABLET (FP) PO PRN (10:51)
[2019-07-02] MEDS ORDERED: MAGNESIUM HYDROX 2400MG/30ML ORAL SUSPENSION 30 ML CUP PO PRN (10:51)
[2019-07-02] MEDS ORDERED: hydrOXYzine PAMOATE 25 MG CAPSULE (FP) PO PRN (10:51)
[2019-07-02] MEDS ORDERED: MAG HYDROX/AL HYDROX/SIMETH 30 ML UNIT-DOSE CUP PO PRN (10:51)
[2019-07-02] MEDS ORDERED: ACETAMINOPHEN 325 MG TABLET (FP) PO PRN ×2 (10:51)
[2019-07-02] MEDS ORDERED: MELATONIN 5 MG TABLETS PO PRN (10:51)
[2019-07-02] MEDS ORDERED: MENTHOL/PHENOL 1 EACH UD MM PRN (10:51)
[2019-07-02] MEDS ORDERED: MAGNESIUM CITRATE 300 ML BOTTLE PO PRN (10:51)
[2019-07-02] MEDS ORDERED: BISMUTH SUBSALICYLATE 262 MG/15 ML BTL PO PRN (10:51)
[2019-07-02] MEDS ORDERED: diazePAM 5 MG TABLET PO PRN (10:58)
[2019-07-02] MEDS ORDERED: diazePAM 5 MG TABLET PO SCH (14:00)
[2019-07-02 17:07] VITALS: BP 123/78; PULSE 82; TEMP 98.1
[2019-07-02] MEDS ORDERED: THIAMINE HCL 100 MG TABLET (FP) PO SCH (22:00)
[2019-07-03] MEDS ORDERED: PRENATAL VITAMINS W/ FOLIC ACID TABLET (FP) PO SCH (10:00)
[2019-07-04] MEDS ORDERED: diazePAM 5 MG TABLET PO SCH (06:00)
[2019-07-05] MEDS ORDERED: diazePAM 5 MG TABLET PO ONE (06:00)
== END 2019-07-02 19:20 | disposition left against medical advice (07) | DRG 770 ==
LOC: YASAS 09:22 → Y6N 10:47
PROVIDERS: ADMIT Allergy & Immunology; ATTEND Allergy & Immunology
DX: F10.230 Alcohol dependence with withdrawal, uncomplicated (principal); F17.210 Nicotine dependence, cigarettes, uncomplicated; Z86.69 Personal history of other diseases of the nervous system and sense organs; Z91.013 Allergy to seafood

== ENCOUNTER 2019-07-17 10:54 | Inpatient (IN) | payer OTHER ==
[2019-07-17 11:13] VITALS: BMI 26.1
--- NOTE | 2019-07-17 12:36 | HP ---
CIWA Score Nausea/Vomitin Muscle Tremors: 2 Anxiety: 3 Agitation: 4-Moderately Restless Paroxysmal Sweats: 1-Minimal Palms Moist Orientation: 1-Uncertain about Date Tacttile Disturbances: 0-None Auditory Disturbances: 0-None Visual Disturbances: 0-None Headache: 1-Very Mild CIWA-Ar Total Score: 15 - Admission Criteria OASAS Guidelines: Admission for Medically Managed Detox: Requires at least one of the followin. CIWA greater than 12 2. Seizures within the past 24 hours 3. Delirium tremens within the past 24 hours 4. Hallucinations within the past 24 hours 5. Acute intervention needed for co occurring medical disorder 6. Acute intervention needed for co occurring psychiatric disorder 7. Severe withdrawal that cannot be handled at a lower level of care (continued vomiting, continued diarrhea, abnormal vital signs) requiring intravenous medication and/or fluids 8. Admitting History and Physical - Admission Chief Complaint: " I want to stop drinking and using drugs." History of Present Illness: 34 year old male with history of alcohol dependence with withdrawal and cocaine use disorder. 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 He is using 3 pints of vodka daily and beers as well. He has had blackouts and last one was 2 weeks ago. He drank this morning. He needs an eye business solutions director drink daily. He is using cocaine 3 grams daily, last used today. PMH: Slipped herniated discNone Psurg: Left Ankle fractured fibulae 4 years ago. Psych: Diagnosed MDD on Zoloft 100mg daily and is taking it daily. Trazodone 100mg QHS. Med: Flexeril, Benadryl. All: Fish allergy , tramadol allergy He is not homeless and has poor support systems and has a significant other that is supportive of his recovery. He has no pending legal issues. History Source: Patient Limitations to Obtaining History: No Limitations - Past Medical History Musculoskeletal: Yes: Other (slipped disc) - Past Surgical History Past Surgical History: Yes: None - Smoking History Smoking history: Current every day smoker Have you smoked in the past 12 months: Yes Aproximately how many cigarettes per day: 10 - Alcohol/Substance Use Hx Alcohol Use: Yes (3 pints vodka daily) Number of Drinks Daily: 20 History of Substance Use: reports: Cocaine - Social History Usual Living Arrangement: Yes: With Parent, With Significant Other Do you think of yourself as: Straight/Heterosexual ADL: Independent 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 History of Recent Travel: No Admission ROS [facility] - [facility] Allergies/Adverse Reactions: Allergies Allergy/AdvReac Type Severity Reaction Status Date / Time Fish Containing Products Allergy Severe Difficulty Verified 07/17/19 11:05 Breathing tramadol Allergy Severe Itching Verified 07/17/19 11:05 Exam Limitations: No Limitations - Ebola screening Have you traveled outside of the country in the last 21 days: No Have you had contact with anyone from an Ebola affected area: No Have you been sick,other than usual withdrawal symptoms: No Do you have a fever: No - Review of Systems Constitutional: Chills, Diaphoresis EENT: reports: No Symptoms Reported Respiratory: reports: No Symptoms reported Cardiac: reports: No Symptoms Reported GI: reports: No Symptoms Reported : reports: No Symptoms Reported Musculoskeletal: reports: No Symptoms Reported Integumentary: reports: No Symptoms Reported Neuro: reports: No Symptoms reported Endocrine: reports: No Symptoms Reported Hematology: reports: No Symptoms Reported Psychiatric: reports: Judgement Intact, Orientated x3, Agitated, Anxious Patient History - Patient Medical History Hx Anemia: No Hx Asthma: No Hx Chronic Obstructive Pulmonary Disease (COPD): No Hx Cancer: No Hx Cardiac Disorders: No Hx Congestive Heart Failure: No Hx Hypertension: No Hx Hypercholesterolemia: No Hx Pacemaker: No HX Cerebrovascular Accident: No Hx Seizures: Yes (alcohol related-last episode was in 2017) Hx Dementia: No Hx Diabetes: No Hx Gastrointestinal Disorders: No Hx Liver Disease: No Hx Genitourinary Disorders: No Hx Sexually Transmitted Disorders: No Hx Renal Disease (ESRD): No Hx Thyroid Disease: No Hx Human Immunodeficiency Virus (HIV): No (01/30 negative) Hx Hepatitis C: No Hx Depression: Yes Hx Suicide Attempt: No Hx Bipolar Disorder: No Hx Schizophrenia: No - Patient Surgical History Past Surgical History: Yes Hx Neurologic Surgery: No Hx Cataract Extraction: No Hx Cardiac Surgery: No Hx Lung Surgery: No Hx Breast Surgery: No Hx Breast Biopsy: No Hx Abdominal Surgery: No Hx Appendectomy: No Hx Cholecystectomy: No Hx Genitourinary Surgery: No Hx Section: No Hx Orthopedic Surgery: Yes (fx, left ankle in 2016) Anesthesia Reaction: No - PPD History Previous Implant?: Yes Documented Results: Negative w/o proof Implanted On Prior [facility] Admission?: No Date: 04/01/18 Results: 0 mm PPD to be Administered?: Yes - Smoking Cessation Smoking history: Current every day smoker Have you smoked in the past 12 months: Yes Aproximately how many cigarettes per day: 10 Cigars Per Day: 0 Hx Chewing Tobacco Use: No Initiated information on smoking cessation: Yes 'Breaking Loose' booklet given: 07/17/19 - Substances abused Alcohol Substance route: Oral Frequency: Daily Amount used: 3 PINTS VODKA, 72OZ OF JANSEN Age of first use: 18 Date of last use: 07/17/19 Cocaine Substance route: Inhalation Frequency: Daily Amount used: $100 Age of first use: 23 Date of last use: 07/17/19 Marijuana/Hashish Substance route: Smoking Frequency: 1-3 times last 30 days Amount used: 10$ Age of first use: 21 Date of last use: 03/04/19 Other Other (specify): PERCOCET Substance route: Oral Frequency: Daily Amount used: 2-3 PILLS DAILY Age of first use: 31 Date of last use: 01/20/19 Heroin Substance route: Inhalation Frequency: 1-2 times per week Amount used: $20-40 Age of first use: 33 Date of last use: 06/30/19 Admission Physical Exam [facility] - Vital Signs Vital Signs: Vital Signs - 24 hr 07/17/19 11:02 Temperature 97.9 F Pulse Rate 88 Respiratory 18 Rate Blood Pressure 140/81 Cleared for Admission [facility] - Detox or Rehab [facility] Level of Care: Medically Managed Detox Regimen/Protocol: Not Applicable (ativan detox protocol) Claeared for Rehab Admission: No Screened but not Admitted - Documentation of Visit Screened but not Admitted: No Breathalyzer - Breathalyzer Breathalyzer: 0.138 Urine Drug Screen - Test Device Lot number: [id number] Expiration date: 12/11/20 - Control Is test valid?: Yes - Results Drug screen NEGATIVE: No Urine drug screen results: THC-Marijuana, JULIANO-Cocaine Inpatient Rehab Admission - Rehab Decision to Admit Inpatient rehab admission?: No
[2019-07-17] MEDS ORDERED: MENTHOL/PHENOL 1 EACH UD MM PRN (12:41)
[2019-07-17] MEDS ORDERED: IBUPROFEN 400 MG TABLET (FP) PO PRN (12:41)
[2019-07-17] MEDS ORDERED: MAG HYDROX/AL HYDROX/SIMETH 30 ML UNIT-DOSE CUP PO PRN (12:41)
[2019-07-17] MEDS ORDERED: MAGNESIUM CITRATE 300 ML BOTTLE PO PRN (12:41)
[2019-07-17] MEDS ORDERED: LORazepam 1 MG TABLET PO PRN (12:41)
[2019-07-17] MEDS ORDERED: METHOCARBAMOL 500 MG TABLET PO PRN (12:41)
[2019-07-17] MEDS ORDERED: MAGNESIUM HYDROX 2400MG/30ML ORAL SUSPENSION 30 ML CUP PO PRN (12:41)
[2019-07-17] MEDS ORDERED: BISMUTH SUBSALICYLATE 262 MG/15 ML BTL PO PRN (12:41)
[2019-07-17] MEDS ORDERED: MELATONIN 5 MG TABLETS PO PRN (12:41)
[2019-07-17] MEDS ORDERED: hydrOXYzine PAMOATE 25 MG CAPSULE (FP) PO PRN (12:41)
[2019-07-17] MEDS ORDERED: ACETAMINOPHEN 325 MG TABLET (FP) PO PRN ×2 (12:41)
[2019-07-17] MEDS ORDERED: traZODone HCL 100 MG TABLET (FP) PO PRN (12:43)
--- NOTE | 2019-07-17 14:41 | PN ---
[facility] Progress Note Note: patient is taking flexeril at home for muscle spasm discontinue robaxin prn
[2019-07-17] MEDS: CYCLOBENZAPRINE HCL 10 MG TABLET (FP) PO SCH ×2 (15:12→22:13)
[2019-07-17] MEDS: LORazepam 2 MG TABLET PO SCH ×2 (17:36→22:12)
[2019-07-17 18:11] LABS: HEMATOCRIT 48.1 % (35.4-49); HEMOGLOBIN 16.3 GM/dL (11.7-16.9); MCH 32.1 pg (25.7-33.7); MCHC 33.8 g/dl (32.0-35.9); MEAN CELL VOLUME 94.8 fl (80-96); MEAN PLT VOLUME 8.1 fl (7.5-11.1); PLATELET COUNT 271 K/MM3 (134-434); RBC 5.08 M/mm3 (4.00-5.60); RDW 13.7 % (11.9-15.9); WHITE BLOOD COUNT 6.6 K/mm3 (4.0-10.0)
[2019-07-17 18:42] LABS: ALBUMIN 4.2 g/dl (3.4-5.0); BILIRUBIN,TOTAL 0.3 mg/dL (0.2-1); CALCIUM 9.3 mg/dL (8.5-10.1); CREATININE 0.9 mg/dL (0.55-1.3); POTASSIUM 3.7 mmol/L (3.5-5.1); TOT PROT 7.7 g/dl (6.4-8.2)
[2019-07-17] MEDS: THIAMINE HCL 100 MG TABLET (FP) PO SCH (22:13)
[2019-07-18] MEDS: LORazepam 2 MG TABLET PO SCH ×4 (05:45→22:03)
[2019-07-18] MEDS: CYCLOBENZAPRINE HCL 10 MG TABLET (FP) PO SCH ×3 (06:13→22:03)
--- NOTE | 2019-07-18 10:14 | PN ---
[facility] CIWA - CIWA Score Nausea/Vomitin-Mild Nausea/No Vomiting Muscle Tremors: 2 Anxiety: 3 Agitation: 2 Paroxysmal Sweats: 2 Orientation: 0-Oriented Tacttile Disturbances: 1-Very Mild Itch/Numbness Auditory Disturbances: 0-None Visual Disturbances: 0-None Headache: 1-Very Mild CIWA-Ar Total Score: 12 [facility] Progress Note (SOAP) Subjective: 34 years old male admitted on 07/17/19 for alcohol withdrawal sx management treated with ativan detox regimen patient tolerated well ate breakfast ambulating on hallway social with peers encourage the patient stay focus on recovery Objective: 07/18/19 10:13 Vital Signs Temperature 96.7 F L 07/18/19 09:06 Pulse Rate 53 L 07/18/19 09:06 Respiratory Rate 18 07/18/19 09:06 Blood Pressure 122/80 07/18/19 09:06 O2 Sat by Pulse Oximetry (%) Laboratory Last Values WBC 6.6 K/mm3 (4.0-10.0) 07/17/19 13:05 RBC 5.08 M/mm3 (4.00-5.60) 07/17/19 13:05 Hgb 16.3 GM/dL (11.7-16.9) 07/17/19 13:05 Hct 48.1 % (35.4-49) D 07/17/19 13:05 MCV 94.8 fl (80-96) 07/17/19 13:05 MCH 32.1 pg (25.7-33.7) 07/17/19 13:05 MCHC 33.8 g/dl (32.0-35.9) 07/17/19 13:05 RDW 13.7 % (11.9-15.9) 07/17/19 13:05 Plt Count 271 K/MM3 (134-434) 07/17/19 13:05 MPV 8.1 fl (7.5-11.1) 07/17/19 13:05 Sodium 142 mmol/L (136-145) 07/17/19 13:05 Potassium 3.7 mmol/L (3.5-5.1) 07/17/19 13:05 Chloride 107 mmol/L (98-107) 07/17/19 13:05 Carbon Dioxide 27 mmol/L (21-32) 07/17/19 13:05 Anion Gap 7 MMOL/L (8-16) L 07/17/19 13:05 BUN 7.0 mg/dL (7-18) 07/17/19 13:05 Creatinine 0.9 mg/dL (0.55-1.3) 07/17/19 13:05 Est GFR (CKD-EPI)AfAm 129.61 07/17/19 13:05 Est GFR (CKD-EPI)NonAf 111.83 07/17/19 13:05 Random Glucose 82 mg/dL (74-106) 07/17/19 13:05 Calcium 9.3 mg/dL (8.5-10.1) 07/17/19 13:05 Total Bilirubin 0.3 mg/dL (0.2-1) 07/17/19 13:05 AST 19 U/L (15-37) 07/17/19 13:05 ALT 21 U/L (13-61) 07/17/19 13:05 Alkaline Phosphatase 99 U/L (45-117) 07/17/19 13:05 Total Protein 7.7 g/dl (6.4-8.2) 07/17/19 13:05 Albumin 4.2 g/dl (3.4-5.0) 07/17/19 13:05 RPR Titer Nonreactive (NONREACTIVE) 07/17/19 13:05 lab noted Assessment: 07/18/19 10:13 alcohol withdrawal sx Plan: ativan detox regimen
[2019-07-18] MEDS: SERTRALINE HCL 50 MG TABLET (FP) PO SCH (10:18)
[2019-07-18] MEDS: PRENATAL VITAMINS W/ FOLIC ACID TABLET (FP) PO SCH (10:18)
[2019-07-18] MEDS: NICOTINE 14 MG/24 HOURS TOPICAL PATCH TD SCH (10:20)
--- NOTE | 2019-07-18 14:19 | CONSULT ---
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 This is one of multiple admisisons for patient. Patient admitted to for alcohol, marijuana, and cocaine depedence. Substance Abuse History: Smoking Cessation. Smoking history: Current every day smoker. Have you smoked in the past 12 months: Yes. Aproximately how many cigarettes per day: 10. Cigars Per Day: 0. Hx Chewing Tobacco Use: No. Initiated information on smoking cessation: Yes. 'Breaking Loose' booklet given : 07/17/19. - Substances abused. Alcohol. Substance route: Oral. Frequency: Daily. Amount used: 3 PINTS VODKA, 72OZ OF JANSEN. Age of first use : 18. Date of last use: 07/17/19. Cocaine. Substance route: Inhalation. Frequency: Daily. Amount used: $100. Age of first use: 23. Date of last use: 07/17/19. Marijuana/Hashish. Substance route: Smoking. Frequency: 1-3 times last 30 days. Amount used: 10$. Age of first use: 21. Date of last use : 03/04/19. Other. Other (specify): PERCOCET. Substance route: Oral. Frequency: Daily. Amount used: 2-3 PILLS DAILY. Age of first use: 31. Date of last use: 01/20/19. Heroin. Substance route: Inhalation. Frequency: 1- 2 times per week. Amount used: $20-40. Age of first use: 33. Date of last use : 06/30/19 Medical History: Seizures (alcohol related - 2014), fx, left ankle in 2016 Psychiatric History: Patient denies history of psychiatric hospitalizations, outpatient care, and suicide attempts. States that he receives zoloft 100mg + Trazodone 100mg from his primary care physician. Patient is an unreliable historian. As per previous interaction with patient on 03/19/19, patient reported history of three psychiatric hospitalizations, most recently in January of 2019 for depression at [facility]. States he was diagnosed with Major depressive disorder and prescribed zoloft 50mg + Trazodone 100mg. 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 At present, patient appears to be fatigue, mildly sedated, but is reporting difficulty sleeping. Patient needed to be awaken several times for interview to be completed. Physical/Sexual Abuse/Trauma History: denies. Mental Status Exam - Mental Status Exam Alert and Oriented to: Time, Place, Person Cognitive Function: Good Patient Appearance: Unkempt Mood: Withdrawn Affect: Mood Congruent Patient Behavior: Sedated (mildly sedated), Fatigued Speech Pattern: Delayed Voice Loudness: Moderately Soft/Quiet Thought Process: Goal Oriented Thought Disorder: Not Present Hallucinations: Denies Suicidal Ideation: Denies Homicidal Ideation: Denies Insight/Judgement: Poor Sleep: Poorly Appetite: Fair Muscle strength/Tone: Normal Gait/Station: Normal Psychiatric Findings - Problem List ([place] 1, 2,3) (1) Alcohol dependence with uncomplicated withdrawal Current Visit: Yes Status: Acute (2) Cannabis dependence Current Visit: Yes Status: Acute (3) Cocaine dependence Current Visit: Yes Status: Acute Qualifiers: Substance use status: uncomplicated Qualified Code(s): F14.20 - Cocaine dependence, uncomplicated (4) Substance induced mood disorder Current Visit: Yes Status: Acute (5) Substance-induced sleep disorder Current Visit: Yes Status: Acute - Initial Treatment Plan Initial Treatment Plan: Psychoeducation provided. Detoxification in progress. Will continue Zoloft 100mg ordered by Dr. Gregory. Will d/c trazodone 100mg PRN and will order trazodone 50mg HS. Benefits and side effects discussed. Verbal consent given.
[2019-07-18] MEDS: THIAMINE HCL 100 MG TABLET (FP) PO SCH (22:03)
[2019-07-18] MEDS: traZODone HCL 50 MG TABLET (FP) PO SCH (22:03)
[2019-07-19] MEDS: LORazepam 1 MG TABLET PO SCH ×4 (05:13→22:12)
[2019-07-19] MEDS: CYCLOBENZAPRINE HCL 10 MG TABLET (FP) PO SCH ×3 (05:13→22:12)
[2019-07-19] MEDS: NICOTINE 14 MG/24 HOURS TOPICAL PATCH TD SCH (10:22)
[2019-07-19] MEDS: PRENATAL VITAMINS W/ FOLIC ACID TABLET (FP) PO SCH (10:22)
[2019-07-19] MEDS: SERTRALINE HCL 50 MG TABLET (FP) PO SCH (10:22)
--- NOTE | 2019-07-19 15:41 | PN ---
S CIWA - CIWA Score Nausea/Vomitin Muscle Tremors: 3 Anxiety: 2 Agitation: 0-Normal Activity Paroxysmal Sweats: 2 Orientation: 0-Oriented Tacttile Disturbances: 1-Very Mild Itch/Numbness Auditory Disturbances: 0-None Visual Disturbances: 0-None Headache: 1-Very Mild CIWA-Ar Total Score: 12 [facility] Progress Note (SOAP) Subjective: Patient is currently here for alcohol withdrawal sx management c/o of interrupted sleep, nausea, chills sweats Objective: 07/19/19 15:39 Vital Signs Temperature 96.1 F L 07/19/19 13:50 Pulse Rate 55 L 07/19/19 13:50 Respiratory Rate 18 07/19/19 13:50 Blood Pressure 92/56 L 07/19/19 13:50 O2 Sat by Pulse Oximetry (%) Laboratory Last Values WBC 6.6 K/mm3 (4.0-10.0) 07/17/19 13:05 RBC 5.08 M/mm3 (4.00-5.60) 07/17/19 13:05 Hgb 16.3 GM/dL (11.7-16.9) 07/17/19 13:05 Hct 48.1 % (35.4-49) D 07/17/19 13:05 MCV 94.8 fl (80-96) 07/17/19 13:05 MCH 32.1 pg (25.7-33.7) 07/17/19 13:05 MCHC 33.8 g/dl (32.0-35.9) 07/17/19 13:05 RDW 13.7 % (11.9-15.9) 07/17/19 13:05 Plt Count 271 K/MM3 (134-434) 07/17/19 13:05 MPV 8.1 fl (7.5-11.1) 07/17/19 13:05 Sodium 142 mmol/L (136-145) 07/17/19 13:05 Potassium 3.7 mmol/L (3.5-5.1) 07/17/19 13:05 Chloride 107 mmol/L (98-107) 07/17/19 13:05 Carbon Dioxide 27 mmol/L (21-32) 07/17/19 13:05 Anion Gap 7 MMOL/L (8-16) L 07/17/19 13:05 BUN 7.0 mg/dL (7-18) 07/17/19 13:05 Creatinine 0.9 mg/dL (0.55-1.3) 07/17/19 13:05 Est GFR (CKD-EPI)AfAm 129.61 07/17/19 13:05 Est GFR (CKD-EPI)NonAf 111.83 07/17/19 13:05 Random Glucose 82 mg/dL (74-106) 07/17/19 13:05 Calcium 9.3 mg/dL (8.5-10.1) 07/17/19 13:05 Total Bilirubin 0.3 mg/dL (0.2-1) 07/17/19 13:05 AST 19 U/L (15-37) 07/17/19 13:05 ALT 21 U/L (13-61) 07/17/19 13:05 Alkaline Phosphatase 99 U/L (45-117) 07/17/19 13:05 Total Protein 7.7 g/dl (6.4-8.2) 07/17/19 13:05 Albumin 4.2 g/dl (3.4-5.0) 07/17/19 13:05 RPR Titer Nonreactive (NONREACTIVE) 07/17/19 13:05 Assessment: 07/19/19 15:39 PATIENT AOX3 NO ACUTE DISTRESS FULL ROM NO GAIT DISTURBANCE NO SKIN ERUPTION OR EDEMA OR ERYTHEMA WITHDRAWAL SX Plan: INCREASE PO FLUIDS ZOFRAN PRN FOR NAUSEA CONTINUE DETOX CONTINUE TO MONITOR
[2019-07-19] MEDS: THIAMINE HCL 100 MG TABLET (FP) PO SCH (22:12)
[2019-07-19] MEDS: traZODone HCL 50 MG TABLET (FP) PO SCH (22:12)
[2019-07-20] MEDS ORDERED: LORazepam 0.5 MG TABLET PO PRN
[2019-07-20] MEDS: LORazepam 0.5 MG TABLET PO SCH ×2 (05:46→11:03)
[2019-07-20] MEDS: CYCLOBENZAPRINE HCL 10 MG TABLET (FP) PO SCH (05:46)
[2019-07-20 09:19] VITALS: BP 114/84; PULSE 96; TEMP 96.9
[2019-07-20] MEDS: NICOTINE 14 MG/24 HOURS TOPICAL PATCH TD SCH (11:03)
[2019-07-20] MEDS: PRENATAL VITAMINS W/ FOLIC ACID TABLET (FP) PO SCH (11:03)
--- NOTE | 2019-07-20 15:23 | DS ---
[facility] Detox Discharge Summary Admission Date: 07/17/19 Discharge Date: 07/20/19 - History Present History: Alcohol Dependence, Cannabis Dependence, Cocaine Dependence, Opioid Dependence Additional Comments: Pt requested to be discharged today to enable him go to work tonight. Pt denies any withdrawal symptoms and is medically cleared for discharged. Pt is encouraged to follow-up with an outpatient chemical dependance program and also to follow-up with his pmd. Pt verbalized understanding. Pt is alert and oriented x3 and in no acute respiratory distress. Pertinent Past History: h/o alcohol, cocaine, cannabis, and heroin use disorder. - Physical Exam Results Vital Signs: Vital Signs Temperature 96.9 F L 07/20/19 09:18 Pulse Rate 96 H 07/20/19 09:18 Respiratory Rate 16 07/20/19 09:18 Blood Pressure 114/84 07/20/19 09:18 O2 Sat by Pulse Oximetry (%) Vital Signs 07/20/19 09:18 Temperature 96.9 F L Pulse Rate 96 H Respiratory 16 Rate Blood Pressure 114/84 Lab Results WBC 6.6 K/mm3 (4.0-10.0) 07/17/19 13:05 RBC 5.08 M/mm3 (4.00-5.60) 07/17/19 13:05 Hgb 16.3 GM/dL (11.7-16.9) 07/17/19 13:05 Hct 48.1 % (35.4-49) D 07/17/19 13:05 MCV 94.8 fl (80-96) 07/17/19 13:05 MCHC 33.8 g/dl (32.0-35.9) 07/17/19 13:05 RDW 13.7 % (11.9-15.9) 07/17/19 13:05 Plt Count 271 K/MM3 (134-434) 07/17/19 13:05 Sodium 142 mmol/L (136-145) 07/17/19 13:05 Potassium 3.7 mmol/L (3.5-5.1) 07/17/19 13:05 Chloride 107 mmol/L (98-107) 07/17/19 13:05 Carbon Dioxide 27 mmol/L (21-32) 07/17/19 13:05 Anion Gap 7 MMOL/L (8-16) L 07/17/19 13:05 BUN 7.0 mg/dL (7-18) 07/17/19 13:05 Creatinine 0.9 mg/dL (0.55-1.3) 07/17/19 13:05 Random Glucose 82 mg/dL (74-106) 07/17/19 13:05 Calcium 9.3 mg/dL (8.5-10.1) 07/17/19 13:05 Labs noted. Pertinent Admission Physical Exam Findings: withdrawal symptoms. - Treatment Hospital Course: Detox Protocol Followed, Detoxed Safely, Responded well, Discharged Condition Good - Medication Discharge Medications: Ambulatory Orders Sertraline HCl [Zoloft -] 100 mg PO DAILY 12/26/18 traZODone HCL [Trazodone HCl] 100 mg PO HS PRN 12/26/18 Cyclobenzaprine HCl [Flexeril -] 10 mg PO TID 03/18/19 Diphenhydramine [Benadryl -] 50 mg PO HS 03/18/19 - Diagnosis (1) Cannabis dependence Status: Acute (2) Cocaine dependence Status: Acute Qualifiers: Substance use status: uncomplicated Qualified Code(s): F14.20 - Cocaine dependence, uncomplicated (3) GERD (gastroesophageal reflux disease) Status: Chronic Qualifiers: Esophagitis presence: without esophagitis Qualified Code(s): K21.9 - Gastro -esophageal reflux disease without esophagitis (4) HTN (hypertension) Status: Chronic Qualifiers: Hypertension type: unspecified Qualified Code(s): I10 - Essential (primary ) hypertension (5) History of fracture of left ankle Status: Chronic (6) Nicotine dependence Status: Chronic Qualifiers: Nicotine product type: cigarettes (7) Hx of seizure disorder Status: Suspected - AMA Did Patient Leave Against Medical Advice: No BHS CIWA - CIWA Score Nausea/Vomitin-No Nausea/No Vomiting Muscle Tremors: None Anxiety: 1-Mildly Anxious Agitation: 0-Normal Activity Paroxysmal Sweats: 1-Minimal Palms Moist Orientation: 0-Oriented Tacttile Disturbances: 0-None Auditory Disturbances: 0-None Visual Disturbances: 0-None Headache: 0-None Present CIWA-Ar Total Score: 2
[2019-07-21] MEDS ORDERED: LORazepam 0.5 MG TABLET PO ONE (05:00)
== END 2019-07-20 09:59 | disposition home or self-care (01) | DRG 773 ==
LOC: YASAS 10:54 → Y3N 13:42
PROVIDERS: ADMIT Allergy & Immunology; ATTEND Allergy & Immunology
PROC: HZ2ZZZZ Detoxification Services for Substance Abuse Treatment (ICD-10-PCS; principal; 2019-07-18)
DX: F10.230 Alcohol dependence with withdrawal, uncomplicated (principal); F11.23 Opioid dependence with withdrawal; F14.20 Cocaine dependence, uncomplicated; F12.20 Cannabis dependence, uncomplicated; F17.210 Nicotine dependence, cigarettes, uncomplicated; F19.282 Other psychoactive substance dependence with psychoactive substance-induced sleep disorder; F19.24 Other psychoactive substance dependence with psychoactive substance-induced mood disorder; F32.9 Major depressive disorder, single episode, unspecified; I10 Essential (primary) hypertension; K21.9 Gastro-esophageal reflux disease without esophagitis; Z86.69 Personal history of other diseases of the nervous system and sense organs; Z87.81 Personal history of (healed) traumatic fracture; Z88.8 Allergy status to other drugs, medicaments and biological substances; Z91.013 Allergy to seafood
CPT/HCPCS: 36415; 80053; 85027; 86593